=== PATIENT | female | born 1960 | race Caucasian/White ===

== ENCOUNTER 2020-05-22 06:59 | Emergency (ER) | payer BC, SELFPAY ==
[2020-05-22 07:07] VITALS: BP 155/94; PULSE 74; RESP 17; TEMP 36.7; O2SAT 97; BMI 23.1
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
[2020-05-22] MEDS: diazePAM 5 MG TABLET PO (07:20)
== END 2020-05-22 07:28 | disposition home or self-care (01) ==
LOC: HO.ED 07:25
PROVIDERS: Emergency Provider Emergency Medicine; PCP Internal Medicine
DX: M54.5 Low back pain (principal); I10 Essential (primary) hypertension; Z79.899 Other long term (current) drug therapy
CPT/HCPCS: 99283

== ENCOUNTER 2020-08-02 07:56 | Outpatient (REF) | payer BC, SELFPAY ==
--- NOTE | 2020-08-02 | US_ITS ---
EXAMINATION: US THYROID CLINICAL INFORMATION: Multinodular goiter. COMPARISON: Ultrasound soft tissue head/neck thyroid dated 07/14/2019. TECHNIQUE: Linear transducer aceves-scale and color Doppler examination with attention to the region of the thyroid. FINDINGS: SIZE: Measurements of the thyroid lobes and nodules are given in sagittal, anteroposterior and transverse dimensions respectively. Right Thyroid Lobe: 4.7 x 1.3 x 1.2 cm, volume 3.8 mL. Previously 4.9 x 1.2 x 1.5 cm, volume 4.6 mL. Parenchyma: The gland echotexture is homogeneous. Thyroid vascularity is normal. Left Thyroid Lobe: 3.8 x 1.5 x 1.3 cm, volume 3.8 mL. Previously 3.8 x 1.4 x 1.3 cm, volume 4.0 mL. Parenchyma: The gland echotexture is homogeneous. Thyroid vascularity is normal. Isthmus: 0.4 cm in maximum AP dimension. Previously 0.3 cm. RIGHT THYROID LOBE: There is 1 nodule seen. 1. Location: Superior. Size: 0.7 x 0.5 x 0.5 cm. Previous: 1.6 x 0.8 x 1.0 cm. Nodule characteristics: Heterogeneous, smoothly marginated with intranodular flow, likely complex lesion. ISTHMUS: No nodules. LEFT THYROID LOBE: There is 1 nodule seen. 1. Location: Inferior. Size: 0.4 x 0.2 x 0.3 cm. Previous: 0.2 x 0.2 x 0.3 cm. Nodule characteristics: Heterogeneous, smoothly marginated with no intranodular flow, likely complex lesion. NODES: No lymphadenopathy is seen in the tissue surrounding the thyroid gland. US/US thyroid IMPRESSION: Complex cystic lesions upper pole right thyroid lobe and lower pole left thyroid lobe still subcentimeter with no major change in the margins or echogenicity. Recommend continued ultrasound follow-up
== END 2020-08-02 07:57 | disposition home or self-care (01) ==
LOC: HO.US 07:56
PROVIDERS: Visit Provider Internal Medicine Endocrinology, Diabetes & Metabolism
DX: E04.2 Nontoxic multinodular goiter (principal)
CPT/HCPCS: 76536

== ENCOUNTER → 2020-08-18 14:17 | Outpatient (BNVA) | payer BC, SELFPAY | PROVIDERS: PCP Internal Medicine; Visit Provider Internal Medicine Endocrinology, Diabetes & Metabolism ==

== ENCOUNTER 2020-08-21 07:30 | Outpatient (REF) | payer BC, SELFPAY ==
[2020-08-21 11:46] LABS: Free T4 (Free Thyroxine) 0.93 ng/dL (0.71-1.85)
[2020-08-21 11:50] LABS: Thyroid Stimulating Hormone 2.79 uIU/mL (0.32-4.0)
[2020-08-21 11:57] LABS: Alanine Aminotransferase 13 U/L (0-31); Albumin Level 3.8 g/dL (3.5-5.0); Alkaline Phosphatase 52 U/L (39-117); Anion Gap 12 (12-20); Aspartate Amino Transferase 21 U/L (5-31); Bilirubin Total 0.8 mg/dL (0.0-1.0); Blood Urea Nitrogen 22 mg/dL (9-16); Calcium 8.8 mg/dL (8.4-10.2); Carbon Dioxide 27 mmol/L (22-29); Chloride 107 mmol/L (96-108); Cholesterol 147 mg/dL; Estimated Glomerular Filt Rate 58; Glucose Fasting 85 mg/dL (60-99); HDL Cholesterol 72 mg/dL; LDL Cholesterol Calculated 67 mg/dl; Potassium 4.3 mmol/l (3.3-5.1); Sodium 142 mmol/L (135-145); Total Protein 6.2 g/dL (6.5-8.0); Triglycerides 40 mg/dL
== END 2020-08-21 07:31 | disposition home or self-care (01) ==
LOC: HO.HMGCLDS 07:30
PROVIDERS: PCP Internal Medicine; Visit Provider Internal Medicine Endocrinology, Diabetes & Metabolism
DX: E04.2 Nontoxic multinodular goiter (principal); E78.5 Hyperlipidemia, unspecified; R79.89 Other specified abnormal findings of blood chemistry
CPT/HCPCS: 36415; 80053; 80061; 84439; 84443

== ENCOUNTER 2021-01-05 14:09 | Outpatient (REF) | payer BC, SELFPAY ==
--- NOTE | ~2021-01-05 | MM_ITS ---
EXAMINATION: BONE DENSITOMETRY CLINICAL INDICATION: Osteoporosis. COMPARISON: Baseline BD dated 07/16/2016. TECHNIQUE: Using a [employer] DXA System (software version: 13.1) manufactured by [employer], dual-energy x-ray absorptiometry was performed of the lumbar spine and left hip. The images are of good technical quality. Summary results are attached. FINDINGS: AP SPINE L1-L4: Current: BMD 0.961 g/cm2, Z-score -0.6, T-score -1.8, osteopenia, 6.2% decrease from baseline (<5% change is not significant). Baseline: BMD 1.025 g/cm2. LEFT FEMUR, NECK: Current: BMD 0.767 g/cm2, Z-score -0.7, T-score -1.9, osteopenia. Baseline: BMD 0.850 g/cm2. LEFT FEMUR, TOTAL: Current: BMD 0.852 g/cm2, Z-score -0.3, T-score -1.2, osteopenia, 5.2% decrease from baseline (<5% change is not significant). Baseline: BMD 0.899 g/cm2. IDENTIFIED RISK FACTORS: Menopause, history of fracture (adult). HISTORY OF FRACTURE: Ribs, ankle. MEDICATIONS: Vitamin D. MM/XR DEXA axial skeleton IMPRESSION: 1. DIAGNOSIS: Osteopenia based on the lowest T-score value of -1.9 in the femoral neck applying World Health Organization criteria. 2. 10-YEAR FRACTURE RISK PREDICTION, FRAX: Major osteoporotic fracture (clinical spine, forearm, hip or shoulder) 15.5%. Hip fracture 2.0%. 3. Treatment Recommendations: NOF guidelines recommend consideration for treatment in postmenopausal women and men age 50 and older presenting with the following: -A hip or vertebral (clinical or morphometric) fracture. -T-score less than or equal to -2.5 at the femoral neck or spine after appropriate evaluation to exclude secondary causes. -Low bone mass at the hip or spine and a 10-year fracture probability by FRAX of greater than or equal to 3% for hip fracture or greater than or equal to 20% for major osteoporotic fracture based on the [place] adapted WHO algorithm. 4. Other Recommendations: All treatment decisions require clinical judgment and consideration of individual patient factors, including patient preferences, comorbidities, previous drug use, risk factors not captured in the FRAX model (e.g. frailty, falls, vitamin D deficiency, increased bone turnover, interval significant decline in bone density) and possible under or overestimation of fracture risk by FRAX. Additional medical evaluation for secondary cause of low bone mineral density may be appropriate. FUTURE SCAN RECOMMENDATION: People with diagnosed cases of osteoporosis or at high risk for fracture should have regular bone mineral density tests. For patients eligible for Medicare, routine testing is allowed once every 2 years. The testing frequency can be increased to one year for patients who have rapidly progressing disease, those who are receiving or discontinuing medical therapy to restore bone mass, or have additional risk factors.
--- NOTE | ~2021-01-05 | MM_ITS ---
EXAMINATION: MM SCREENING DIGITAL BREAST TOMOSYNTHESIS, BILATERAL CLINICAL INFORMATION: Screening. Asymptomatic. The lifetime risk of breast cancer based on the Tyrer-Cuzick Model is 13%. COMPARISON: Mammography: 04/22/2018, 04/08/2016, 02/02/2015 TECHNIQUE: Digital breast tomosynthesis is performed in both the craniocaudal and mediolateral oblique views along with computer-aided detection (CAD). Synthesized 2D images are generated from the tomosynthesis. FINDINGS: There are scattered areas of fibroglandular density (ACR BI-RADS breast composition Category b). There are no significant masses, abnormal calcifications, or other abnormalities. There is deodorant artifact versus dermal calcifications overlying the axilla. The skin contours are smooth. MM/MM tomosynthesis screening BI IMPRESSION: No mammographic evidence of malignancy. ASSESSMENT: BI-RADS 2: Benign RECOMMENDATION: Routine annual mammography screening. This patient's information was entered into a reminder system with a target due date for their next mammogram.
== END 2021-01-05 14:10 | disposition home or self-care (01) ==
LOC: HO.MAMMO 14:09
PROVIDERS: PCP Internal Medicine; Visit Provider Obstetrics & Gynecology
DX: Z12.31 Encounter for screening mammogram for malignant neoplasm of breast (principal); Z13.820 Encounter for screening for osteoporosis; M85.80 Other specified disorders of bone density and structure, unspecified site; Z78.0 Asymptomatic menopausal state; Z87.81 Personal history of (healed) traumatic fracture; Z79.899 Other long term (current) drug therapy
CPT/HCPCS: 77063; 77067; 77080

== ENCOUNTER 2021-02-14 08:26 | Outpatient (REF) | payer BC, SELFPAY ==
[2021-02-14 11:43] LABS: Alanine Aminotransferase 21 U/L (0-31); Albumin Level 4.1 g/dL (3.5-5.0); Alkaline Phosphatase 53 U/L (39-117); Aspartate Amino Transferase 31 U/L (5-31); Bilirubin Direct 0.4 mg/dL (0.0-0.5); Bilirubin Total 0.9 mg/dL (0.0-1.0); Blood Urea Nitrogen 16 mg/dL (9-16); Estimated Glomerular Filt Rate 58; Total Protein 6.7 g/dL (6.5-8.0)
== END 2021-02-14 08:27 | disposition home or self-care (01) ==
LOC: HO.HMGCLDS 08:26
PROVIDERS: PCP Internal Medicine; Visit Provider Physical Medicine & Rehabilitation
DX: M51.16 Intervertebral disc disorders with radiculopathy, lumbar region (principal)
CPT/HCPCS: 36415; 80076; 82565; 84520

== ENCOUNTER 2021-05-26 09:12 | Outpatient (REF) | payer BC, SELFPAY ==
[2021-05-26 11:17] LABS: Hematocrit 38.3 % (37.0-47.0); Hemoglobin 12.9 g/dl (12.0-16.0); Mean Corpuscular HGB Conc 33.7 g/dl (31.0-35.0); Mean Corpuscular Hemoglobin 31.5 pg (27.0-33.0); Mean Corpuscular Volume 93.4 fL (80.0-98.0); Mean Platelet Volume 12.6 fL (9.4-12.3); Platelet Count 148 X10*3/uL (160-400)
[2021-05-26 11:21] LABS: Estimated Average Glucose 105 mg/dL; Hemoglobin A1c % 5.3 %
[2021-05-26 11:36] LABS: Alanine Aminotransferase 24 U/L (0-31); Albumin Level 3.9 g/dL (3.5-5.0); Alkaline Phosphatase 55 U/L (39-117); Anion Gap 11 (12-20); Aspartate Amino Transferase 39 U/L (5-31); Bilirubin Total 0.8 mg/dL (0.0-1.0); Blood Urea Nitrogen 14 mg/dL (9-16); Calcium 8.7 mg/dL (8.4-10.2); Carbon Dioxide 26 mmol/L (22-29); Chloride 106 mmol/L (96-108); Cholesterol 142 mg/dL; Estimated Glomerular Filt Rate > 60; Glucose Fasting 70 mg/dL (60-99); HDL Cholesterol 66 mg/dL; LDL Cholesterol Calculated 69 mg/dl; Potassium 3.9 mmol/L (3.3-5.1); Sodium 139 mmol/L (135-145); Total Protein 6.4 g/dL (6.5-8.0); Triglycerides 35 mg/dL
[2021-05-26 11:44] LABS: Creatinine Urine 148.93 mg/dL
[2021-05-26 11:45] LABS: TSH reflex Free T4 3.63 uIU/mL (0.32-4.0)
== END 2021-05-26 09:13 | disposition home or self-care (01) ==
LOC: HO.HMGCLDS 09:12
PROVIDERS: PCP Internal Medicine; Visit Provider Physician Assistant
DX: I25.10 Atherosclerotic heart disease of native coronary artery without angina pectoris (principal)
CPT/HCPCS: 36415; 80053; 80061; 82043; 83036; 84443; 85027

== ENCOUNTER → 2021-06-15 09:22 | Outpatient (BNVA) | payer BC, SELFPAY | PROVIDERS: PCP Internal Medicine; Visit Provider Nurse Practitioner ==

== ENCOUNTER 2021-07-02 06:21 | Outpatient (REF) | payer BC, SELFPAY ==
[2021-07-04 07:31] LABS: Immunoglobulin E 43 kU/L (<OR=114)
[2021-07-07 05:26] LABS: IgA 125 mg/dL (47-310); IgG 1118 mg/dL (600-1640); IgM 126 mg/dL (50-300)
== END 2021-07-02 06:22 | disposition home or self-care (01) ==
LOC: HO.HMGCLDS 06:21
PROVIDERS: PCP Internal Medicine; Visit Provider Specialist
DX: D84.9 Immunodeficiency, unspecified (principal)
CPT/HCPCS: 36415; 82784; 82785

== ENCOUNTER 2021-07-23 09:49 | Day surgery (SDC) | payer BC, SELFPAY ==
--- NOTE | 2021-07-19 10:31 | HO.ANESPROP2 ---
Documented by User: Nayla Antoine NP 07/19/21 10:49 HPI - Anesthesia Eval Consult details Narrative: 61yo F for Colonoscopy Cardiac cleared [facility] Active Problems Active Problems: All Active Problems (Updated 06/15/21 @ 09:50 by YARELIS Seymour) Tubular adenoma of colon (Acute) Asthma (Acute) CAD (coronary artery disease) (Acute) Cervical disc disease (Acute) Annual physical exam (Acute) Colon cancer screening (Acute) Low TSH level (Acute) Non-toxic multinodular goiter (Acute) Thyroid nodule (Acute) Dyslipidemia (Acute) Past Medical History Medical History (Updated 07/19/21 @ 10:47 by Nayla Antoine NP) Asthma CAD (coronary artery disease) Disc disorder Dyslipidemia HTN (hypertension) Low TSH level Non-toxic multinodular goiter SVT (supraventricular tachycardia) Thyroid nodule Family History Family History (Updated 05/24/21 @ 15:38 by Emile Espinal PA-C) Father Hypertension CVD (cardiovascular disease) S/P triple vessel bypass Mother Stroke CVD (cardiovascular disease) Hypertension Paternal Aunt Cancer Sister Cancer Brother Hypertension Cancer Surgical History Surgical History (Updated 06/15/21 @ 09:25 by AMILCAR López) Deficient knowledge of temporomandibular joint repair H/O arthroscopy History of carpal tunnel release of both wrists History of cervical spinal surgery History of colonoscopy with polypectomy History of discectomy Hx of neck surgery Social History Social History (Updated 05/24/21 @ 15:39 by Emile Espinal PA-C) Housing: House Alcohol intake: former Patient Tobacco Use Status: Former Tobacco user e-Cigarette/Vaping Use: Never Used Second Hand Smoke Exposure: No Use of substances other than those prescribed or required for medical reasons: No Are you DNR?: No Advance Directives: No Advance Directives Information Provided: Yes service: No Current occupational status: employed 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[place] [employer] Current occupational exposures/hazards: No Cognitive needs: No Hearing needs: No Vision needs: No Meds Allergies Allergy/AdvReac Type Severity Reaction Status Date / Time amoxicillin [Amoxicillin] Allergy Unknown NAUSEA AND Verified 07/03/21 11:51 VOMITTING, nauseous doxycycline [Doxycycline] Allergy Unknown NAUSEA AND Verified 07/03/21 11:51 VOMITTING, upset stomach penicillin G Allergy Unknown Nausea Verified 07/03/21 11:51 tizanidine AdvReac Intermediate vertigo Verified 07/03/21 11:51 grass,trees,dust Allergy Unknown Unknown Uncoded 07/03/21 11:51 Principin Allergy Unknown Vomiting Uncoded 07/03/21 11:51 Home Medications Medication Instructions Recorded Confirmed Last Taken Type albuterol sulfate 90 mcg/actuation INHALATION 08/15/20 07/03/21 07/23/21 History aerosol inhaler fluticasone 500 mcg-salmeterol 50 INHALATION 08/15/20 07/03/21 07/23/21 History mcg/dose blistr powdr for inhalation lidocaine 5 % topical patch 0 patch TOPICAL 08/15/20 07/03/21 Unknown History metoprolol succinate 50 mg 50 mg PO DAILY 08/15/20 07/03/21 07/23/21 History tablet,extended release 24 hr tiotropium bromide 1.25 INHALATION 08/15/20 07/03/21 Unknown History mcg/actuation mist for inhalation valacyclovir 500 mg tablet 500 mg PO DAILY 08/15/20 07/03/21 Unknown History aspirin 81 mg tablet,delayed 81 mg PO DAILY 08/18/20 07/03/21 07/16/21 History release (Adult Low Dose Aspirin) immun glob G 4 gram/20 mL(20 ml SUBCUT 08/18/20 07/03/21 Unknown History %)-prol-IgA 0-50 mcg/mL subcutaneous soln diclofenac sodium 75 mg 1 tab PO BID 07/23/21 07/23/21 07/16/21 History tablet,delayed release Exam Exam Date and Time: July 19, 2021 1031 Pertinent Lab Results Pertinent Lab Results: Laboratory Tests 05/26/21 05/26/21 09:18 09:18 WBC 5.0 Hgb 12.9 Hct 38.3 Plt Count 148 L Sodium 139 Potassium 3.9 Chloride 106 Carbon Dioxide 26 BUN 14 Creatinine 0.87 Narrative Narrative: EKG 06/2021 (at [facility]) SR, Nonspecific ST-T wave abn Assessment and Plan Assessment Anesthesia Assessment: Chart Reviewed Documented by User: Horacio Frank 07/23/21 10:42 [facility] Past Medical History Medical History (Updated 07/19/21 @ 10:47 by Nayla Antoine NP) Asthma CAD (coronary artery disease) Disc disorder Dyslipidemia HTN (hypertension) Low TSH level Non-toxic multinodular goiter SVT (supraventricular tachycardia) Thyroid nodule Family History Family History (Updated 05/24/21 @ 15:38 by Emile Espinal PA-C) Father Hypertension CVD (cardiovascular disease) S/P triple vessel bypass Mother Stroke CVD (cardiovascular disease) Hypertension Paternal Aunt Cancer Sister Cancer Brother Hypertension Cancer Family history of problems with anesthesia: No Surgical History Surgical History (Updated 06/15/21 @ 09:25 by AMILCAR López) Deficient knowledge of temporomandibular joint repair H/O arthroscopy History of carpal tunnel release of both wrists History of cervical spinal surgery History of colonoscopy with polypectomy History of discectomy Hx of neck surgery History of Problems with Anesthesia: No Social History Social History (Updated 05/24/21 @ 15:39 by Emile Espinal PA-C) Housing: House Alcohol intake: former Patient Tobacco Use Status: Former Tobacco user e-Cigarette/Vaping Use: Never Used Second Hand Smoke Exposure: No Use of substances other than those prescribed or required for medical reasons: No Are you DNR?: No Advance Directives: No Advance Directives Information Provided: Yes service: No Current occupational status: employed 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[place] [employer] Current occupational exposures/hazards: No Cognitive needs: No Hearing needs: No Vision needs: No Meds Allergies Allergy/AdvReac Type Severity Reaction Status Date / Time amoxicillin [Amoxicillin] Allergy Unknown NAUSEA AND Verified 07/03/21 11:51 VOMITTING, nauseous doxycycline [Doxycycline] Allergy Unknown NAUSEA AND Verified 07/03/21 11:51 VOMITTING, upset stomach penicillin G Allergy Unknown Nausea Verified 07/03/21 11:51 tizanidine AdvReac Intermediate vertigo Verified 07/03/21 11:51 grass,trees,dust Allergy Unknown Unknown Uncoded 07/03/21 11:51 Principin Allergy Unknown Vomiting Uncoded 07/03/21 11:51 Home Medications Medication Instructions Recorded Confirmed Last Taken Type albuterol sulfate 90 mcg/actuation INHALATION 08/15/20 07/03/21 07/23/21 History aerosol inhaler fluticasone 500 mcg-salmeterol 50 INHALATION 08/15/20 07/03/21 07/23/21 History mcg/dose blistr powdr for inhalation lidocaine 5 % topical patch 0 patch TOPICAL 08/15/20 07/03/21 Unknown History metoprolol succinate 50 mg 50 mg PO DAILY 08/15/20 07/03/21 07/23/21 History tablet,extended release 24 hr tiotropium bromide 1.25 INHALATION 08/15/20 07/03/21 Unknown History mcg/actuation mist for inhalation valacyclovir 500 mg tablet 500 mg PO DAILY 08/15/20 07/03/21 Unknown History aspirin 81 mg tablet,delayed 81 mg PO DAILY 08/18/20 07/03/21 07/16/21 History release (Adult Low Dose Aspirin) immun glob G 4 gram/20 mL(20 ml SUBCUT 08/18/20 07/03/21 Unknown History %)-prol-IgA 0-50 mcg/mL subcutaneous soln diclofenac sodium 75 mg 1 tab PO BID 07/23/21 07/23/21 07/16/21 History tablet,delayed release Exam Airway Mallampati Class: IV TM Dist: >3cm Neck ROM: Limited Loose/Missing/Broken Teeth: Yes (Permanent partials, missing teeth ) Heart: rrr Lungs: bl breath sounds Assessment and Plan Final Anesthetic Review Family History of Problems with Anesthesia: No History of Problems with Anesthesia: No NPO: Yes ASA Class: III Final Preanesthetic Review: Anes Risks/Benef Reviewed Patient Risk: Intermediate Procedure Risk: Intermediate Anesthetic Plan Anesthetic Plan: MAC: Disposition: Standard PACU
[2021-07-23 10:09] VITALS: BP 142/84; PULSE 93; RESP 18; TEMP 36.7; O2SAT 96; BMI 24.5
[2021-07-23] MEDS: Lactated Ringers 1,000 ML 100 ML IVCONT (10:34)
--- NOTE | 2021-07-23 11:17 | MHC.SHP ---
Pre-Procedural Eval Section A Date of Service: 07/23/21 Section B Chief Complaint: benign neoplasm of colon Relevant Family History (Specify if Yes): No Relevant Social History: None Present Medications: see Short Stay Collaborative assessment Medical History: Significant History (Asthma CAD (coronary artery disease) Disc disorder Dyslipidemia HTN (hypertension) Low TSH level Non-toxic multinodular goiter SVT (supraventricular tachycardia) Thyroid nodule) History of Previous Operations: Relevant previous surgery/procedure and date(s) (Deficient knowledge of temporomandibular joint repair H/O arthroscopy History of carpal tunnel release of both wrists History of cervical spinal surgery History of colonoscopy with polypectomy History of discectomy Hx of neck surgery) Allergies: Allergies Allergy/AdvReac Type Severity Reaction Status Date / Time amoxicillin [Amoxicillin] Allergy Unknown NAUSEA AND Verified 07/03/21 11:51 VOMITTING, nauseous doxycycline [Doxycycline] Allergy Unknown NAUSEA AND Verified 07/03/21 11:51 VOMITTING, upset stomach penicillin G Allergy Unknown Nausea Verified 07/03/21 11:51 tizanidine AdvReac Intermediate vertigo Verified 07/03/21 11:51 grass,trees,dust Allergy Unknown Unknown Uncoded 07/03/21 11:51 Principin Allergy Unknown Vomiting Uncoded 07/03/21 11:51 Review of Systems Sugical H&P ROS: Negative: Constitution, Cardiovascular, Respiratory, Neurological, Psychiatric, Hem-Onc, Allergic/Immunologic, Gastrointestinal, Genitourinary, Musculoskeletal, Integumentary, Endocrine and Eyes/Ears/Nose/Throat Exam Surgical H&P Exam: Normal: HEENT, Normal: Heart, Normal: Lungs, Normal: Extremities, Normal: Abdomen, Normal: Skin and Normal: Neurological Plan Diagnosis/Plan: Unchanged I have reviewed the history and physical and performed a pertinent physical examination on my patient. No changes have occurred unless specified.
--- NOTE | 2021-07-23 11:18 | P.BOP_ITS ---
Brief Operative Note Date of Service: 07/23/21 Pre-op diagnosis: colon screening Post-op diagnosis: same Procedure: see op note Surgeon: Radha Connelly MD Anesthesia: MAC Was an [employer] used for this Procedure?: No Estimated blood loss (mL): 0 Condition: stable Disposition: PACU
--- NOTE | 2021-07-23 11:18 | W.PM.OPN ---
Operative Note Operative Note Date of Service: 07/23/21 Narrative: Operative Information Procedure Description: Colonoscopy COLONOSCOPY Instrument: Olympus variable stiffness pediatric scope 190L Colonoscopy Monitoring: Vital signs and clinical assessment, continuous EKG monitoring, Pulse oximetry, Carbon Dioxide monitoring and blood pressure monitoring were done throughout the procedure. Colon withdrawal time was 17 minutes. Procedure: The patient was placed in the left lateral decubitis position and pre-procedure medications were administered. After a digital rectal examination of the ano-rectum, the video colonoscope was inserted into the rectum and advanced through the colon to the cecum/TI. The colonoscope was slowly withdrawn in a retrograde panoramic fashion and the colon mucosa was carefully examined including a retroflexed view of the rectum. Findings and interventions are described below. Procedure Difficulty: easy Findings: Terminal Ileum-normal Cecum:normal Ascending Colon: 3-4 mm sessile polyp removed with forceps Transverse Colon - 10-12 mm semi pedunculated polyp removed with cold snare with x 2 clips applied for hemostasis Descending Colon:normal Sigmoid Colon: 12-13 mm sessile polyp removed with cold snare and x 1 clip applied for hemostasis Rectum: Retroflexion with small internal hemorrhoids, grade I Anorectum - normal Colon preparation: Fontanelle Bowel Preparation Scale Right colon; 3 Transverse colon: 3 Left colon; 3 (0 = Unprepared colon segment with mucosa not seen due to solid stool that cannot be cleared. 1 = Portion of mucosa of the colon segment seen, but other areas of the colon segment not well seen due to staining, residual stool and/or opaque liquid. 2 = Minor amount of residual staining, small fragments of stool and/or opaque liquid, but mucosa of colon segment seen well. 3 = Entire mucosa of colon segment seen well with no residual staining, small fragments of stool or opaque liquid) Impression and Post Procedure Diagnosis: polyps internal hemorrhoids Plan: High fiber diet leaflet Avoid straining at stool, epsom salts and sitz bath, anusol supps or cream Repeat Colonoscopy in 3-5 years due to polyps or earlier if clinically indicated Above findings were reviewed with the patient and relevant handouts were provided if indicated.
[2021-07-23 12:03] VITALS: BP 115/47; PULSE 99; RESP 15; TEMP 36.2; O2SAT 99
[2021-07-23 12:18] VITALS: BP 122/69; PULSE 92; RESP 17; TEMP 36.2; O2SAT 99
== END 2021-07-23 13:08 | disposition home or self-care (01) ==
PROVIDERS: PCP Internal Medicine; Visit Provider Internal Medicine Gastroenterology
PROC: 0DJD8ZZ Inspection of Lower Intestinal Tract, Via Natural or Artificial Opening Endoscopic (ICD-10-PCS; CPT 45378; principal; 2021-07-23 11:10)
DX: Z12.11 Encounter for screening for malignant neoplasm of colon (principal); Z86.010 Personal history of colon polyps; D12.5 Benign neoplasm of sigmoid colon; K51.40 Inflammatory polyps of colon without complications; K63.5 Polyp of colon; K64.0 First degree hemorrhoids; J45.909 Unspecified asthma, uncomplicated; I25.10 Atherosclerotic heart disease of native coronary artery without angina pectoris; I10 Essential (primary) hypertension; E78.5 Hyperlipidemia, unspecified; Z88.0 Allergy status to penicillin; Z88.1 Allergy status to other antibiotic agents; Z88.8 Allergy status to other drugs, medicaments and biological substances; Z87.891 Personal history of nicotine dependence; Z79.899 Other long term (current) drug therapy; Z79.82 Long term (current) use of aspirin; Z79.51 Long term (current) use of inhaled steroids
CPT/HCPCS: 45385; 45380; 88305

== ENCOUNTER → 2021-08-06 16:13 | Outpatient (BNVA) | payer BC, SELFPAY | PROVIDERS: PCP Internal Medicine; Referring Provider Internal Medicine; Visit Provider Nurse Practitioner ==

== ENCOUNTER 2021-11-06 06:41 | Emergency (ER) | payer BC, SELFPAY ==
--- NOTE | 2021-11-06 06:48 | ED_ITS ---
History of Present Illness General Chief Complaint: Epistaxis Stated Complaint: nose bleed Time Seen by Provider: 11/06/21 06:47 Source: patient Mode of arrival: ambulatory Limitations: no limitations History of Present Illness Location: Yes right nares and Yes bilateral nares Onset/current episode: Yes hour(s) (1) Duration: Yes constant Pertinent past history: Yes history of previous nose bleed Context: Yes history of previous nose bleed and Yes nasal allergies Treatment prior to arrival: Yes nose pinching and Yes head leaning forward Related Data Home Medications Medication Instructions Recorded Confirmed albuterol sulfate 90 mcg/actuation INHALATION 08/15/20 07/03/21 aerosol inhaler fluticasone 500 mcg-salmeterol 50 INHALATION 08/15/20 07/03/21 mcg/dose blistr powdr for inhalation lidocaine 5 % topical patch 0 patch TOPICAL 08/15/20 07/03/21 metoprolol succinate 50 mg 50 mg PO DAILY 08/15/20 07/03/21 tablet,extended release 24 hr tiotropium bromide 1.25 INHALATION 08/15/20 07/03/21 mcg/actuation mist for inhalation valacyclovir 500 mg tablet 500 mg PO DAILY 08/15/20 07/03/21 aspirin 81 mg tablet,delayed 81 mg PO DAILY 08/18/20 07/03/21 release (Adult Low Dose Aspirin) immun glob G 4 gram/20 mL(20 ml SUBCUT 08/18/20 07/03/21 %)-prol-IgA 0-50 mcg/mL subcutaneous soln diclofenac sodium 75 mg 1 tab PO BID 07/23/21 07/23/21 tablet,delayed release Previous Rx's Medication Instructions Recorded loratadine 10 mg tablet (Allergy 10 mg PO DAILY PRN 90 Days #90 tab 08/07/20 Relief (loratadine)) peg 3350-electrolytes 236 240 ml PO Q10M 1 Days #4000 ml 06/15/21 gram-22.74 gram-6.74 gram-5.86 gram solution (Golytely) atorvastatin 40 mg tablet 40 mg PO DAILY #90 tab 08/01/21 prednisone 10 mg tablet 10 mg PO DAILY 5 Days #5 tab 09/14/21 clindamycin HCl 300 mg capsule 300 mg PO TID 3 Days #9 cap 11/06/21 hydrocodone 5 mg-acetaminophen 325 1 tab PO Q6H PRN #10 tab 11/06/21 mg tablet ondansetron 4 mg disintegrating 4 mg PO Q8H PRN #20 tab 11/06/21 tablet Allergies Allergy/AdvReac Type Severity Reaction Status Date / Time amoxicillin [Amoxicillin] Allergy Unknown NAUSEA AND Verified 08/06/21 16:23 VOMITTING, nauseous doxycycline [Doxycycline] Allergy Unknown NAUSEA AND Verified 08/06/21 16:23 VOMITTING, upset stomach penicillin G Allergy Unknown Nausea Verified 08/06/21 16:23 tizanidine AdvReac Intermediate vertigo Verified 08/06/21 16:23 grass,trees,dust Allergy Unknown Unknown Uncoded 07/03/21 11:51 Principin Allergy Unknown Vomiting Uncoded 07/03/21 11:51 Review of Systems Review of Systems: Constitutional : No Fever, No Chills ENT/Mouth : No Ear Pain, No Nasal Congestion, positive nose bleed Eyes: No Eye Pain, No Swelling, No Redness Cardiovascular : No Chest Pain, No SOB Respiratory : No Cough, No Sputum Gastrointestinal : No Nausea, No Vomiting, No Diarrhea Genitourinary : No Dysuria, No Hematuria Musculoskeletal : No joint pain, No Myalgias Skin : No Skin Lesions, No rash Neuro : No Weakness, No Numbness, No headache Psych : No Anxiety/Panic, No Depression Heme/Lymph: positive Bleeding,No Lymphadenopathy Endocrine : No Polyuria, No Polydipsia PMFSH Past Medical History Attestation statement: The following information was validated with the patient. Medical History Asthma CAD (coronary artery disease) Disc disorder Dyslipidemia HTN (hypertension) Low TSH level Non-toxic multinodular goiter SVT (supraventricular tachycardia) Thyroid nodule Surgical History Deficient knowledge of temporomandibular joint repair H/O arthroscopy History of carpal tunnel release of both wrists History of cervical spinal surgery History of colonoscopy with polypectomy History of discectomy Hx of neck surgery Family History Family History (Updated 05/24/21 @ 15:38 by Emile Espinal PA-C) Father Hypertension CVD (cardiovascular disease) S/P triple vessel bypass Mother Stroke CVD (cardiovascular disease) Hypertension Paternal Aunt Cancer Sister Cancer Brother Hypertension Cancer Social History Social History Housing: House Alcohol intake: never Patient Tobacco Use Status: Never used Tobacco e-Cigarette/Vaping Use: Never Used Second Hand Smoke Exposure: No Use of substances other than those prescribed or required for medical reasons: No Advance Directives: No Advance Directives Information Provided: No service: No Current occupational status: employed 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 Oriented X3. Mild acute distress. Eyes: Pupils equal, round and reactive to light. ENT: Pharynx - bleeding slight posterior pharynx, R nares brisk bleeding brb, L nares slight bleeding noted Neck: Normal inspection. Neck supple. CVS: Normal heart rate and rhythm. Pulses normal. Respiratory: No respiratory distress. Breath sounds normal. Abdomen: Soft and nontender. Skin: Skin warm and dry. Normal skin color. Normal skin turgor. Extremities: No lower extremity edema. No calf ttp Neuro: Oriented X 3. No motor deficit. No sensory deficit. Course Course Course Narrative: will obtain CBC INR after packing - IV morphine for pain, start on clindamycin has PCN and doxy allergies no further bleeding doing well aware of precautions to return has had nasal packing before obs x 2 hours no further bleeding MDM - Epistaxis MDM Narrative Medical decision making narrative: 61 yo female with hx of asthma, CAD, HLD here with c/o epistaxis she is not on AC therapy but is on ASA at this time she has been packed before attributes this to nasal dryness. At this time will try local measurs but I suspect she will need packing given presentation and her history. Lab Data Result diagrams: 11/06/21 07:16 Labs: Lab Results 11/06/21 11/06/21 Range/Units 07:16 07:16 WBC 5.7 (4.8-10.8) X10*3/uL RBC 4.28 (4.20-5.50) X10*6/uL Hgb 12.9 (12.0-16.0) g/dl Hct 39.0 (37.0-47.0) % MCV 91.1 (80.0-98.0) fL MCH 30.1 (27.0-33.0) pg MCHC 33.1 (31.0-35.0) g/dl RDW 12.7 (11.0-16.0) % Plt Count 172 (160-400) X10*3/uL MPV 12.0 (9.4-12.3) fL Absolute Nucleated RBC 0.000 (0.0-0.012) X10*3/uL Nucleated RBC % (auto) 0.0 (0.0-0.2) /100WBC PT 11.3 (9.9-13.0) SEC INR 1.0 (0.9-1.1) Procedures Epistaxis Control Time Out Performed: Yes Nostril: Yes right Nose prepped with: Yes oxymetazoline and Yes other (tranexamic acid) Direct inspection: Yes unable to visualize Direct inspection method: Yes nasal speculum Clots removed by: Yes suction Epistaxis treatment: Yes TXA soaked gauze and Yes nasal tampon Results of treatment: Yes bleeding controlled Complications: Yes none Critical Care Time Critical Care Time Critical Care Time: Yes Total Critical Care Time: 35 Attestation: repeat bedside assessments, direct control of acute epistaxis bleeding. IV morp luiza for pain I attest to this time spent taking care of the patient Discharge Plan Discharge Clinical Impression: Epistaxis Patient Disposition: Home, Self-Care Instructions: Nosebleed (ED) Additional Instructions: return to ED for any worsening symptoms or concerns nasal packing to remain in place x 2 days if bleeding occurs pinch nose and seek medical care lean forward if you cannot get into your ENT please come here to have packing removed. Prescriptions: New hydrocodone-acetaminophen 5-325 mg tablet 1 tab PO Q6H PRN (Reason: pain) Qty: 10 0RF ondansetron 4 mg tablet,disintegrating 4 mg PO Q8H PRN (Reason: nausea and vomiting) Qty: 20 0RF clindamycin HCl 300 mg capsule 300 mg PO TID 3 Days Qty: 9 0RF No Action loratadine [Allergy Relief (loratadine)] 10 mg tablet 10 mg PO DAILY PRN (Reason: allergy symptoms) 90 Days Qty: 90 1RF atorvastatin 40 mg tablet 40 mg PO DAILY Qty: 90 2RF prednisone 10 mg tablet 10 mg PO DAILY 5 Days Qty: 5 1RF diclofenac sodium 75 mg tablet,delayed release (DR/EC) 1 tab PO BID 0RF lidocaine 5 % adhesive patch,medicated 0 patch topical 0RF albuterol sulfate 90 mcg/actuation HFA aerosol inhaler inhalation 0RF fluticasone propion-salmeterol 500-50 mcg/dose blister with device inhalation 0RF metoprolol succinate 50 mg tablet extended release 24 hr 50 mg PO DAILY 0RF valacyclovir 500 mg tablet 500 mg PO DAILY 0RF Spiriva Respimat 1.25 mcg/actuation mist inhalation 0RF immun glob G(IgG)-pro-IgA 0-50 4 gram/20 mL (20 %) solution subcut 0RF aspirin [Adult Low Dose Aspirin] 81 mg tablet,delayed release (DR/EC) 81 mg PO DAILY 0RF peg 3350-electrolytes [Golytely] 236-22.74-6.74 -5.86 gram recon soln 240 ml PO Q10M 1 Days Qty: 4000 0RF Rx Instructions: until fecal effluent is clear; do not exceed a total volume of 2,000 mL Stand Alone Forms: Work/School Release
[2021-11-06 07:16] VITALS: BP 149/84; PULSE 93; RESP 16; O2SAT 98; BMI 24.7
[2021-11-06] MEDS: ondansetron HCL 4 MG/2 ML VIAL IVPUSH (07:22)
[2021-11-06] MEDS: Morphine Sulfate 4 MG/ML CARTRIDGE IVPUSH (07:22)
[2021-11-06] MEDS: Clindamycin Phosphate/D5W 600 MG/50 ML PIGGYBACK 100 MG IV (07:23)
[2021-11-06 07:28] LABS: Hemoglobin 12.9 g/dl (12.0-16.0); Mean Corpuscular HGB Conc 33.1 g/dl (31.0-35.0); Mean Corpuscular Hemoglobin 30.1 pg (27.0-33.0); Mean Corpuscular Volume 91.1 fL (80.0-98.0); Platelet Count 172 X10*3/uL (160-400); Red Blood Count 4.28 X10*6/uL (4.20-5.50); Red Cell Distribution Width 12.7 % (11.0-16.0); White Blood Count 5.7 X10*3/uL (4.8-10.8)
[2021-11-06 07:36] LABS: Prothrombin Time 11.3 SEC (9.9-13.0)
[2021-11-06 07:42] VITALS: BP 137/90; PULSE 80; RESP 18; TEMP 36.7; O2SAT 98
[2021-11-06] MEDS: Oxymetazoline HCl 0.05 % Nasal 15 ML SPRAY 2 SPRAY NOSTRIL-B (07:45)
[2021-11-06] MEDS: Tranexamic Acid 1,000 MG/10 ML VIAL 500 MG INTRANASAL (07:45)
[2021-11-06] MEDS: Silver Nitrate Applicator STICK..EA. 1 APPL TOPICAL (07:46)
[2021-11-06 07:48] VITALS: BP 126/85; PULSE 81
== END 2021-11-06 09:04 | disposition home or self-care (01) ==
PROVIDERS: Emergency Provider Emergency Medicine; PCP Internal Medicine
DX: R04.0 Epistaxis (principal); I10 Essential (primary) hypertension; E78.5 Hyperlipidemia, unspecified; Z79.02 Long term (current) use of antithrombotics/antiplatelets
CPT/HCPCS: 30905; 36415; 85027; 85610; 96365; 96375; 99284; 99291; J2270; J2405

== ENCOUNTER 2021-11-06 13:34 | Emergency (ER) | payer BC, SELFPAY ==
[2021-11-06 13:42] VITALS: BP 192/110; PULSE 80; O2SAT 98
[2021-11-06 13:54] VITALS: BP 184/64; PULSE 85; RESP 18; TEMP 36.4; O2SAT 98; BMI 24.7
--- NOTE | 2021-11-06 13:57 | ED.GENADULT ---
HPI - General Adult General Chief complaint: Dyspnea Stated complaint: DIFFICULTY BREATHING,EPISTAXIS,DIZZY Time Seen by Provider: 11/06/21 13:39 Source: patient, EMS and old records reviewed Mode of arrival: EMS Limitations: no limitations History of Present Illness HPI narrative: 61-year-old female came in for evaluation of dizziness and difficulty breathing. Patient was seen earlier today for epistaxis, patient was discharged home with nasal packing when patient went home laid back felt dizzy and lightheadedness, and was breathing from her mouth due to the packing in her nose. Not taking anticoagulation but using aspirin, patient take metoprolol for her blood pressure did not take it today. Related Data Home Medications Medication Instructions Recorded Confirmed albuterol sulfate 90 mcg/actuation INHALATION 08/15/20 07/03/21 aerosol inhaler fluticasone 500 mcg-salmeterol 50 INHALATION 08/15/20 07/03/21 mcg/dose blistr powdr for inhalation lidocaine 5 % topical patch 0 patch TOPICAL 08/15/20 07/03/21 metoprolol succinate 50 mg 50 mg PO DAILY 08/15/20 07/03/21 tablet,extended release 24 hr tiotropium bromide 1.25 INHALATION 08/15/20 07/03/21 mcg/actuation mist for inhalation valacyclovir 500 mg tablet 500 mg PO DAILY 08/15/20 07/03/21 aspirin 81 mg tablet,delayed 81 mg PO DAILY 08/18/20 07/03/21 release (Adult Low Dose Aspirin) immun glob G 4 gram/20 mL(20 ml SUBCUT 08/18/20 07/03/21 %)-prol-IgA 0-50 mcg/mL subcutaneous soln diclofenac sodium 75 mg 1 tab PO BID 07/23/21 07/23/21 tablet,delayed release Previous Rx's Medication Instructions Recorded loratadine 10 mg tablet (Allergy 10 mg PO DAILY PRN 90 Days #90 tab 08/07/20 Relief (loratadine)) peg 3350-electrolytes 236 240 ml PO Q10M 1 Days #4000 ml 06/15/21 gram-22.74 gram-6.74 gram-5.86 gram solution (Golytely) atorvastatin 40 mg tablet 40 mg PO DAILY #90 tab 08/01/21 prednisone 10 mg tablet 10 mg PO DAILY 5 Days #5 tab 09/14/21 clindamycin HCl 300 mg capsule 300 mg PO TID 3 Days #9 cap 11/06/21 hydrocodone 5 mg-acetaminophen 325 1 tab PO Q6H PRN #10 tab 11/06/21 mg tablet ondansetron 4 mg disintegrating 4 mg PO Q8H PRN #20 tab 11/06/21 tablet Allergies Allergy/AdvReac Type Severity Reaction Status Date / Time amoxicillin [Amoxicillin] Allergy Unknown NAUSEA AND Verified 11/06/21 13:54 VOMITTING, nauseous doxycycline [Doxycycline] Allergy Unknown NAUSEA AND Verified 11/06/21 13:54 VOMITTING, upset stomach penicillin G Allergy Unknown Nausea Verified 11/06/21 13:54 tizanidine AdvReac Intermediate vertigo Verified 11/06/21 13:54 grass,trees,dust Allergy Unknown Unknown Uncoded 07/03/21 11:51 Principin Allergy Unknown Vomiting Uncoded 07/03/21 11:51 Review of Systems Review of Systems: all other systems are reviewed and are negative Constitutional: Reports as per HPI and Reports no additional constitutional complaints Eyes: Reports as per HPI and Reports no additional eye complaints Reports system reviewed and no additional complaints, except as documented Cardiovascular: Reports as per HPI and Reports no additional cardiovascular complaints Respiratory: Reports as per HPI and Reports no additional respiratory complaints Gastrointestinal: Reports as per HPI and Reports no additional gastrointestinal complaints Genitourinary: Reports no additional female genitourinary complaints Musculoskeletal: Reports no additional musculoskeletal complaints Skin/Breast: Reports system reviewed and no additional complaints, except as docu Psychiatric: Reports no additional psychiatric complaints Endocrine: Reports no additional endocrine complaints Hematologic/Lymphatic: Reports no additional hematologic/lymphatic complaints Allergic/Immunologic: Reports no additional allergic/immunologic complaints Reports system reviewed and no additional complaints, except as documented and Reports Abnormal speech present [facility] Past Medical History Medical History Asthma CAD (coronary artery disease) Disc disorder Dyslipidemia HTN (hypertension) Low TSH level Non-toxic multinodular goiter SVT (supraventricular tachycardia) Thyroid nodule Surgical History Deficient knowledge of temporomandibular joint repair H/O arthroscopy History of carpal tunnel release of both wrists History of cervical spinal surgery History of colonoscopy with polypectomy History of discectomy Hx of neck surgery Family History Family History Father Hypertension CVD (cardiovascular disease) S/P triple vessel bypass Mother Stroke CVD (cardiovascular disease) Hypertension Paternal Aunt Cancer Sister Cancer Brother Hypertension Cancer Social History Social History Housing: House Alcohol intake: never Patient Tobacco Use Status: Never used Tobacco e-Cigarette/Vaping Use: Never Used Second Hand Smoke Exposure: No Advance Directives: No Advance Directives Information Provided: No service: No Current occupational status: employed 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 Blood pressure normal. Heart rate normal. Respiration rate normal. Temperature normal. Oxygen saturation normal. Appearance: Alert. Oriented X3. No acute distress. Head: Normal external exam. Normocephalic. Atraumatic. No Quinones signs noted. No raccoon eyes noted Eyes: PERRLA. EOMI. Conjunctiva and sclera normal. Eyelids normal. ENT: TM's Normal. Pharynx normal. Uvula midline. Moist mucous membranes. No trismus noted. No drooling noted. No muffled voice noted. no active bleeding nasal packing is in place Neck: Normal inspection. Neck supple. FROM. No adenopathy. Thyroid Normal. No meningeal signs. No neck mass noted. CVS: Normal heart rate and rhythm. Heart sound normal. No murmurs noted. Pulses normal throughout. Respiratory: No respiratory distress. Painless inspiration. Breath sounds normal. No wheezes/rales/rhonchi noted. Chest nontender. No accessory muscle usage noted or decreased air movement noted. Abdomen: Soft and nontender. Bowel sounds normal in all 4 quadrants. No distention noted. No organomegaly noted. No visible injury noted. Back: No CVA tenderness. Full range of motion noted. Skin: Skin warm and dry. Normal skin color. Normal skin turgor. No rashes/lesions/lacerations noted. Extremities: No lower extremity edema. Extremities exhibit normal range of motion. Extremities nontender. Neuro: Oriented X 3. Cranial nerve exam: II-XII are grossly intact No motor deficit. No sensory deficit. Reflexes normal. Course Course Course Narrative: assessment and plan. 61-year-old female had nasal packing for epistaxis and return to the emergency department for difficulty breathing and feeling dizzy. Patient's symptoms is likely due to breathing from mouth for a long time, nasal packing was discontinued in the emergency department and patient was monitored in the ED for 2 hours has no further nasal bleeding. patient has unremarkable labs, and unchanged EKG from old. Medical Decision Making Lab Data Lab results reviewed: Yes I reviewed the patient's lab results. Result diagrams: 11/06/21 14:17 11/06/21 14:17 Labs: Lab Results 11/06/21 11/06/21 11/06/21 Range/Units 14:17 14:17 14:17 WBC 6.4 (4.8-10.8) X10*3/uL RBC 4.26 (4.20-5.50) X10*6/uL Hgb 12.9 (12.0-16.0) g/dl Hct 39.4 (37.0-47.0) % MCV 92.5 (80.0-98.0) fL MCH 30.3 (27.0-33.0) pg MCHC 32.7 (31.0-35.0) g/dl RDW 12.8 (11.0-16.0) % Plt Count 166 (160-400) X10*3/uL MPV 11.8 (9.4-12.3) fL Immature Gran % (Auto) 0.3 (0.0-0.4) % Neut % (Auto) 48.4 (45-73) % Lymph % (Auto) 41.8 H (20-40) % Wilbarger % (Auto) 5.9 (2-11) % Eos % (Auto) 2.8 (0-4) % Baso % (Auto) 0.8 (0-2) % Lymph # (Auto) 2.7 (1.2-4.9) X10*3/uL [place]barger # (Auto) 0.4 (0.1-1.2) X10*3/uL Eos # (Auto) 0.2 (0.0-0.4) X10*3/uL Baso # (Auto) 0.1 (0.0-0.2) X10*3/uL Abs Immat Gran (auto) 0.02 (0.00-0.03) X10*3/uL Absolute Neuts (auto) 3.1 (2.0-8.3) x10*3/uL Absolute Nucleated RBC 0.000 (0.0-0.012) X10*3/uL Nucleated RBC % (auto) 0.0 (0.0-0.2) /100WBC Sodium 139 (135-145) mmol/L Potassium 4.3 (3.3-5.1) mmol/L Chloride 105 (96-108) mmol/L Carbon Dioxide 28 (22-29) mmol/L Anion Gap 10 L (12-20) BUN 23 H (9-16) mg/dL Creatinine 0.87 (0.5-1.4) mg/dL Estim Creat Clear Calc 62.5 Estimated GFR > 60 Random Glucose 90 (60-115) mg/dL Calcium 9.3 D (8.4-10.2) mg/dL Troponin I High Sens < 3.5 (<3.5-17.0) ng/L ECG Data Attestation: I personally reviewed and interpreted this ECG as follows: Interpretation: Normal sinus rhythm at 87 beats per minutes, normal intervals, diffuse T-wave inversion in the lateral leads, unchanged from previous EKG. Discharge Plan Discharge Clinical Impression: Epistaxis, Encounter for removal of nasal packing, Dizziness Patient Disposition: Home, Self-Care Instructions: Dizziness (ED) Additional Instructions: postop taken clindamycin ( antibiotic was prescribed to you this morning). Prescriptions: No Action loratadine [Allergy Relief (loratadine)] 10 mg tablet 10 mg PO DAILY PRN (Reason: allergy symptoms) 90 Days Qty: 90 1RF atorvastatin 40 mg tablet 40 mg PO DAILY Qty: 90 2RF prednisone 10 mg tablet 10 mg PO DAILY 5 Days Qty: 5 1RF diclofenac sodium 75 mg tablet,delayed release (DR/EC) 1 tab PO BID 0RF hydrocodone-acetaminophen 5-325 mg tablet 1 tab PO Q6H PRN (Reason: pain) Qty: 10 0RF ondansetron 4 mg tablet,disintegrating 4 mg PO Q8H PRN (Reason: nausea and vomiting) Qty: 20 0RF clindamycin HCl 300 mg capsule 300 mg PO TID 3 Days Qty: 9 0RF lidocaine 5 % adhesive patch,medicated 0 patch topical 0RF albuterol sulfate 90 mcg/actuation HFA aerosol inhaler inhalation 0RF fluticasone propion-salmeterol 500-50 mcg/dose blister with device inhalation 0RF metoprolol succinate 50 mg tablet extended release 24 hr 50 mg PO DAILY 0RF valacyclovir 500 mg tablet 500 mg PO DAILY 0RF Spiriva Respimat 1.25 mcg/actuation mist inhalation 0RF immun glob G(IgG)-pro-IgA 0-50 4 gram/20 mL (20 %) solution subcut 0RF aspirin [Adult Low Dose Aspirin] 81 mg tablet,delayed release (DR/EC) 81 mg PO DAILY 0RF peg 3350-electrolytes [Golytely] 236-22.74-6.74 -5.86 gram recon soln 240 ml PO Q10M 1 Days Qty: 4000 0RF Rx Instructions: until fecal effluent is clear; do not exceed a total volume of 2,000 mL Referrals: Karen Gonzalez MD [Primary Care Provider] -
--- NOTE | 2021-11-06 14:04 | ECG_ITS ---
Test Reason : DYSPNEA Blood Pressure : / mmHG Vent. Rate : 087 BPM Atrial Rate : 087 BPM P-R Int : 154 ms QRS Dur : 084 ms QT Int : 382 ms P-R-T Axes : 027 005 007 degrees QTc Int : 459 ms Normal sinus rhythm ST & T wave abnormality, consider anterior ischemia Abnormal ECG When compared with ECG of 24-SEP-2019 10:51, No significant change was found Referred By: Sesar Escobar Electronically Signed By:Brian Concepcion
[2021-11-06] MEDS: 0.9 % Sodium Chloride 1,000 ML 999 ML IV (14:15)
[2021-11-06 14:19] VITALS: BP 169/88; PULSE 78
[2021-11-06 14:20] VITALS: BP 144/85; PULSE 75
[2021-11-06 14:24] VITALS: BP 149/87; PULSE 82
[2021-11-06 14:24] LABS: MANUAL DIFF FLAG NO
[2021-11-06 14:28] LABS: Basophils Absolute Auto 0.1 X10*3/uL (0.0-0.2); Basophils Percent Auto 0.8 % (0-2); Eosinophils Absolute Auto 0.2 X10*3/uL (0.0-0.4); Eosinophils Percent Auto 2.8 % (0-4); Hematocrit 39.4 % (37.0-47.0); Hemoglobin 12.9 g/dl (12.0-16.0); Imm Gran Abs Auto 0.02 X10*3/uL (0.00-0.03); Imm Gran Pct Auto 0.3 % (0.0-0.4); Lymphocytes Absolute Auto 2.7 X10*3/uL (1.2-4.9); Lymphocytes Percent Auto 41.8 % (20-40); Mean Corpuscular HGB Conc 32.7 g/dl (31.0-35.0); Mean Corpuscular Hemoglobin 30.3 pg (27.0-33.0); Mean Corpuscular Volume 92.5 fL (80.0-98.0); Mean Platelet Volume 11.8 fL (9.4-12.3); Monocytes Absolute Auto 0.4 X10*3/uL (0.1-1.2); Monocytes Percent Auto 5.9 % (2-11); Neutrophils Absolute Auto 3.1 x10*3/uL (2.0-8.3); Neutrophils Percent Auto 48.4 % (45-73); Platelet Count 166 X10*3/uL (160-400); Red Blood Count 4.26 X10*6/uL (4.20-5.50); Red Cell Distribution Width 12.8 % (11.0-16.0); White Blood Count 6.4 X10*3/uL (4.8-10.8)
[2021-11-06 14:29] VITALS: BP 150/54; PULSE 83; RESP 18; TEMP 36.4; O2SAT 95
[2021-11-06 14:42] LABS: Anion Gap 10 (12-20); Blood Urea Nitrogen 23 mg/dL (9-16); Calcium 9.3 mg/dL (8.4-10.2); Carbon Dioxide 28 mmol/L (22-29); Chloride 105 mmol/L (96-108); Creatinine Clr Calc Pharmacy 62.5; Estimated Glomerular Filt Rate > 60; Glucose Random 90 mg/dL (60-115); Potassium 4.3 mmol/L (3.3-5.1); Sodium 139 mmol/L (135-145)
[2021-11-06 14:49] LABS: Troponin-I High Sensitivity < 3.5 ng/L (<3.5-17.0)
== END 2021-11-06 16:34 | disposition home or self-care (01) ==
PROVIDERS: Emergency Provider Emergency Medicine; PCP Internal Medicine
DX: R42 Dizziness and giddiness (principal); R04.0 Epistaxis; Z48.01 Encounter for change or removal of surgical wound dressing; Z79.82 Long term (current) use of aspirin
CPT/HCPCS: 36415; 80048; 84484; 85025; 93005; 96360; 99284

== ENCOUNTER 2021-12-05 15:35 | Outpatient (REF) | payer BC, SELFPAY ==
--- NOTE | ~2021-12-05 | US_ITS ---
EXAMINATION: US THYROID CLINICAL INFORMATION: Nontoxic single thyroid nodule. COMPARISON: Ultrasound soft tissue head/neck thyroid dated 08/02/2020 and 07/14/2019. TECHNIQUE: Linear transducer grayscale and color Doppler examination with attention to the region of the thyroid. FINDINGS: SIZE: Measurements of the thyroid lobes and nodules are given in sagittal, anteroposterior and transverse dimensions respectively. Right Thyroid Lobe: 3.73 x 1.60 x 1.18 cm, volume 3.67 mL. Previously 4.7 x 1.3 x 1.2 cm, volume 3.79 mL. Parenchyma: The gland echotexture is homogeneous. Thyroid vascularity is normal. Left Thyroid Lobe: 4.10 x 1.92 x 1.18 cm, volume 4.88 mL. Previously 3.8 x 1.5 x 1.3 cm, volume 3.83 mL. Parenchyma: The gland echotexture is homogeneous. Thyroid vascularity is normal. Isthmus: 0.39 cm in maximum AP dimension. Previously 0.43 cm. No focal thyroid nodule is seen. NODES: No lymphadenopathy is seen in the tissue surrounding the thyroid gland. US/US thyroid IMPRESSION: Unremarkable thyroid ultrasound. Previously visualized thyroid nodules are not seen at this time. ACR TI-RADS RECOMMENDATION REFERENCE: Ultrasound-guided fine-needle aspiration, followup ultrasound, no further follow up. * TR1 (0 point) and TR 2 (2 points): No FNA or follow up * TR3 (3 points): FNA if more than or equal to 2.5 cm in maximum dimension, followup ultrasound in 1, 3 and 5 years if 1.5 to 2.4 cm in maximum dimension. * TR4 (4-6 points): FNA if more than or equal to 1.5 cm in maximum dimension, followup ultrasound in 1, 2, 3 and 5 years if 1 to 1.4 cm in maximum dimension. * TR5 (more than or equal to 7 points): FNA if more than or equal to 1 cm in maximum dimension, followup ultrasound every year for 5 years if 0.5 to 0.9 cm in maximum dimension. * TR3, TR4 or TR5 nodules that are below the size threshold for follow up receive no follow up.
== END 2021-12-05 15:36 | disposition home or self-care (01) ==
LOC: HO.HMGCX 15:35
PROVIDERS: Visit Provider Internal Medicine
DX: E04.1 Nontoxic single thyroid nodule (principal)
CPT/HCPCS: 76536

== ENCOUNTER 2021-12-08 07:59 | Outpatient (REF) | payer BC, SELFPAY ==
[2021-12-08 11:28] LABS: Alanine Aminotransferase 13 U/L (0-31); Albumin Level 3.9 g/dL (3.5-5.0); Alkaline Phosphatase 57 U/L (39-117); Anion Gap 13 (12-20); Aspartate Amino Transferase 25 U/L (5-31); Bilirubin Total 0.5 mg/dL (0.0-1.0); Blood Urea Nitrogen 30 mg/dL (9-16); Carbon Dioxide 26 mmol/L (22-29); Chloride 106 mmol/L (96-108); Cholesterol 146 mg/dL; Estimated Glomerular Filt Rate > 60; Glucose Fasting 84 mg/dL (60-99); HDL Cholesterol 67 mg/dL; LDL Cholesterol Calculated 72 mg/dl; Potassium 4.1 mmol/L (3.3-5.1); Sodium 141 mmol/L (135-145); Total Protein 6.5 g/dL (6.5-8.0); Triglycerides 38 mg/dL
[2021-12-08 11:51] LABS: Thyroid Stimulating Hormone 0.65 uIU/mL (0.32-4.0)
== END 2021-12-08 08:00 | disposition home or self-care (01) ==
LOC: HO.HMGCLDS 07:59
PROVIDERS: Visit Provider Internal Medicine
DX: E04.1 Nontoxic single thyroid nodule (principal); E78.5 Hyperlipidemia, unspecified
CPT/HCPCS: 36415; 80053; 80061; 84443

== ENCOUNTER 2021-12-26 14:59 | Outpatient (REF) | payer BC, SELFPAY ==
[2021-12-26 15:55] LABS: MANUAL DIFF FLAG NO
[2021-12-26 16:52] LABS: Basophils Percent Auto 0.7 % (0-2); Eosinophils Absolute Auto 0.3 X10*3/uL (0.0-0.4); Eosinophils Percent Auto 4.6 % (0-4); Hematocrit 37.8 % (37.0-47.0); Hemoglobin 12.2 g/dl (12.0-16.0); Imm Gran Abs Auto 0.01 X10*3/uL (0.00-0.03); Imm Gran Pct Auto 0.2 % (0.0-0.4); Lymphocytes Absolute Auto 1.5 X10*3/uL (1.2-4.9); Lymphocytes Percent Auto 27.4 % (20-40); Mean Corpuscular HGB Conc 32.3 g/dl (31.0-35.0); Mean Corpuscular Hemoglobin 30.4 pg (27.0-33.0); Mean Corpuscular Volume 94.3 fL (80.0-98.0); Mean Platelet Volume 12.4 fL (9.4-12.3); Monocytes Absolute Auto 0.4 X10*3/uL (0.1-1.2); Monocytes Percent Auto 7.2 % (2-11); Neutrophils Absolute Auto 3.2 x10*3/uL (2.0-8.3); Neutrophils Percent Auto 59.9 % (45-73); Platelet Count 166 X10*3/uL (160-400); Red Blood Count 4.01 X10*6/uL (4.20-5.50); White Blood Count 5.4 X10*3/uL (4.8-10.8)
== END 2021-12-26 15:00 | disposition home or self-care (01) ==
LOC: HO.LAB 14:59
PROVIDERS: PCP Internal Medicine; Visit Provider Internal Medicine Pulmonary Disease
DX: J45.909 Unspecified asthma, uncomplicated (principal); Z91.09 Other allergy status, other than to drugs and biological substances
CPT/HCPCS: 36415; 82785; 85025; 86003

== ENCOUNTER 2021-12-27 15:34 | Outpatient (REF) | payer BC, SELFPAY ==
--- NOTE | 2021-12-27 17:32 | PFT_ITS ---
Forced vital capacity 93%. FEV1 102%. FEV1/FVC ratio 85. FEF 25-75, 129%, and MVV 89%. All these values are normal. There was no response to bronchodilator therapy. Lung volumes, total lung capacity 89%, residual volume 77%, and diffusion capacity 72%. CONCLUSION: Normal pulmonary function tests and there is no evidence of obstructive or restrictive pulmonary disorder. MD SAPPHIRE Baker/HASMUKH / [id number]
== END 2021-12-27 15:35 | disposition home or self-care (01) ==
LOC: HO.RESP 15:34
PROVIDERS: PCP Internal Medicine; Visit Provider Internal Medicine Pulmonary Disease
DX: J45.909 Unspecified asthma, uncomplicated (principal)
CPT/HCPCS: 94060; 94727; 94729

== ENCOUNTER 2022-03-18 14:03 | Outpatient (REF) | payer BC, SELFPAY | END 2022-03-18 14:04 | disposition home or self-care (01) | LOC: HO.MDS 14:03 | PROVIDERS: Visit Provider Internal Medicine Pulmonary Disease | DX: J45.50 Severe persistent asthma, uncomplicated (principal) | CPT/HCPCS: 96372; J0517 ==

== ENCOUNTER 2022-04-15 15:43 | Outpatient (REF) | payer BC, SELFPAY | END 2022-04-15 15:44 | disposition home or self-care (01) | LOC: HO.MDS 15:43 | PROVIDERS: Visit Provider Internal Medicine Pulmonary Disease | DX: J45.50 Severe persistent asthma, uncomplicated (principal) | CPT/HCPCS: 96372; J0517 ==

== ENCOUNTER 2022-05-13 14:32 | Outpatient (REF) | payer BC, SELFPAY | END 2022-05-13 14:33 | disposition home or self-care (01) | LOC: HO.MDS 14:32 | PROVIDERS: Visit Provider Internal Medicine Pulmonary Disease | DX: J45.50 Severe persistent asthma, uncomplicated (principal) | CPT/HCPCS: 96372; J0517 ==

== ENCOUNTER 2022-05-24 06:02 | Outpatient (REF) | payer BC, SELFPAY ==
[2022-05-24 11:25] LABS: MANUAL DIFF FLAG NO
[2022-05-24 11:35] LABS: Basophils Percent Auto 0.2 % (0-2); Hematocrit 40.6 % (37.0-47.0); Hemoglobin 13.1 g/dl (12.0-16.0); Imm Gran Abs Auto 0.01 X10*3/uL (0.00-0.03); Imm Gran Pct Auto 0.2 % (0.0-0.4); Lymphocytes Absolute Auto 1.7 X10*3/uL (1.2-4.9); Lymphocytes Percent Auto 29.3 % (20-40); Mean Corpuscular HGB Conc 32.3 g/dl (31.0-35.0); Mean Corpuscular Hemoglobin 29.4 pg (27.0-33.0); Mean Platelet Volume 12.1 fL (9.4-12.3); Monocytes Absolute Auto 0.4 X10*3/uL (0.1-1.2); Monocytes Percent Auto 6.8 % (2-11); Neutrophils Absolute Auto 3.7 x10*3/uL (2.0-8.3); Neutrophils Percent Auto 63.5 % (45-73); Platelet Count 181 X10*3/uL (160-400); Red Blood Count 4.46 X10*6/uL (4.20-5.50); Red Cell Distribution Width 13.3 % (11.0-16.0); White Blood Count 5.8 X10*3/uL (4.8-10.8)
[2022-05-24 11:53] LABS: Alanine Aminotransferase 13 U/L (0-31); Albumin Level 4.3 g/dL (3.5-5.0); Alkaline Phosphatase 75 U/L (39-117); Anion Gap 16 (12-20); Aspartate Amino Transferase 25 U/L (5-31); Bilirubin Total 0.8 mg/dL (0.0-1.0); Blood Urea Nitrogen 21 mg/dL (9-16); Calcium 9.3 mg/dL (8.4-10.2); Carbon Dioxide 26 mmol/L (22-29); Chloride 103 mmol/L (96-108); Cholesterol 146 mg/dL; Estimated Glomerular Filt Rate > 60; Glucose Fasting 83 mg/dL (60-99); HDL Cholesterol 65 mg/dL; LDL Cholesterol Calculated 73 mg/dl; Potassium 4.2 mmol/L (3.3-5.1); Sodium 141 mmol/L (135-145); Total Protein 7.1 g/dL (6.5-8.0); Triglycerides 44 mg/dL
== END 2022-05-24 06:03 | disposition home or self-care (01) ==
LOC: HO.HMGCLDS 06:02
PROVIDERS: PCP Internal Medicine; Visit Provider Internal Medicine
DX: E78.5 Hyperlipidemia, unspecified (principal); I47.1 Supraventricular tachycardia
CPT/HCPCS: 36415; 80053; 80061; 85025

== ENCOUNTER → 2022-08-23 15:38 | Outpatient (BNVA) | payer BC, SELFPAY | PROVIDERS: PCP Internal Medicine; Visit Provider Internal Medicine Pulmonary Disease | DX: Z91.09 Other allergy status, other than to drugs and biological substances (principal); J45.909 Unspecified asthma, uncomplicated ==

== ENCOUNTER → 2022-12-06 15:47 | Outpatient (BNVA) | payer BC, SELFPAY | PROVIDERS: PCP Internal Medicine; Visit Provider Internal Medicine Pulmonary Disease | DX: Z91.09 Other allergy status, other than to drugs and biological substances (principal); J45.909 Unspecified asthma, uncomplicated ==

== ENCOUNTER 2022-12-17 16:34 | Outpatient (REF) | payer BC, SELFPAY ==
--- NOTE | ~2022-12-17 | MM_ITS ---
EXAMINATION: MM SCREENING DIGITAL BREAST TOMOSYNTHESIS, BILATERAL CLINICAL INFORMATION: Screening. Asymptomatic. The lifetime risk of breast cancer based on the Tyrer-Cuzick Model is 12.2%. COMPARISON: Mammography: January 05, 2021 and studies dating back to August 31, 2011 TECHNIQUE: Digital breast tomosynthesis is performed in both the craniocaudal and mediolateral oblique views along with computer-aided detection (CAD). Synthesized 2D images are generated from the tomosynthesis. FINDINGS: The breasts are heterogeneously dense, which may obscure small masses (ACR BI-RADS breast composition Category c). There are no significant masses, abnormal calcifications, or other abnormalities. MM/MM tomosynthesis screening BI IMPRESSION: No significant changes from prior exam. ASSESSMENT: BI-RADS 1: Negative RECOMMENDATION: Routine annual mammography screening. This patient's information was entered into a reminder system with a target due date for their next mammogram.
== END 2022-12-17 16:35 | disposition home or self-care (01) ==
LOC: HO.MAMMO 16:34
PROVIDERS: PCP Internal Medicine; Visit Provider Internal Medicine
DX: Z12.31 Encounter for screening mammogram for malignant neoplasm of breast (principal)
CPT/HCPCS: 77063; 77067

== ENCOUNTER 2023-01-07 14:48 | Outpatient (REF) | payer BC, SELFPAY ==
--- NOTE | ~2023-01-07 | MM_ITS ---
EXAMINATION: BONE DENSITOMETRY CLINICAL INDICATION: Osteopenia, unspecified location. COMPARISON: Previous BD dated 01/05/2021 and baseline BD dated 07/16/2016. TECHNIQUE: Using a [employer] DXA System (software version: 13.1) manufactured by [employer], dual-energy x-ray absorptiometry was performed of the lumbar spine and left hip. The images are of good technical quality. Summary results are attached. FINDINGS: AP SPINE L1-L4: Current: BMD 0.895 g/cm2, Z-score -1.1, T-score -2.4, osteopenia, 6.9% decrease from previous, 12.7% decrease from baseline (<5% change is not significant). Prior: BMD 0.961 g/cm2. Baseline: BMD 1.025 g/cm2. LEFT FEMUR, NECK: Current: BMD 0.746 g/cm2, Z-score -0.8, T-score -2.1, osteopenia. Prior: BMD 0.767 g/cm2. Baseline: BMD 0.850 g/cm2. LEFT FEMUR, TOTAL: Current: BMD 0.860 g/cm2, Z-score -0.2, T-score -1.2, osteopenia, 0.9% increase from previous, 4.3% decrease from baseline (<5% change is not significant). Prior: BMD 0.852 g/cm2. Baseline: BMD 0.899 g/cm2. IDENTIFIED RISK FACTORS: History of fracture (adult), menopause. HISTORY OF FRACTURE: Ribs; ankle. MEDICATIONS: Vitamin D. MM/XR DEXA axial skeleton IMPRESSION: 1. DIAGNOSIS: Osteopenia based on the lowest T-score value of -2.4 in the lumbar spine applying World Health Organization criteria. 2. 10-YEAR FRACTURE RISK PREDICTION, FRAX: Major osteoporotic fracture (clinical spine, forearm, hip or shoulder) 17.1%. Hip fracture 2.6%. 3. Treatment Recommendations: NOF guidelines recommend consideration for treatment in postmenopausal women and men age 50 and older presenting with the following: -A hip or vertebral (clinical or morphometric) fracture. -T-score less than or equal to -2.5 at the femoral neck or spine after appropriate evaluation to exclude secondary causes. -Low bone mass at the hip or spine and a 10-year fracture probability by FRAX of greater than or equal to 3% for hip fracture or greater than or equal to 20% for major osteoporotic fracture based on the [place] adapted WHO algorithm. 4. Other Recommendations: All treatment decisions require clinical judgment and consideration of individual patient factors, including patient preferences, comorbidities, previous drug use, risk factors not captured in the FRAX model (e.g. frailty, falls, vitamin D deficiency, increased bone turnover, interval significant decline in bone density) and possible under or overestimation of fracture risk by FRAX. Additional medical evaluation for secondary cause of low bone mineral density may be appropriate. FUTURE SCAN RECOMMENDATION: People with diagnosed cases of osteoporosis or at high risk for fracture should have regular bone mineral density tests. For patients eligible for Medicare, routine testing is allowed once every 2 years. The testing frequency can be increased to one year for patients who have rapidly progressing disease, those who are receiving or discontinuing medical therapy to restore bone mass, or have additional risk factors.
== END 2023-01-07 14:49 | disposition home or self-care (01) ==
LOC: HO.MAMMO 14:48
PROVIDERS: PCP Internal Medicine; Visit Provider Obstetrics & Gynecology
DX: Z13.820 Encounter for screening for osteoporosis (principal); Z78.0 Asymptomatic menopausal state
CPT/HCPCS: 77080

== ENCOUNTER 2023-02-06 17:03 | Outpatient (AMB) | payer BC, SELFPAY ==
[2023-02-06 17:18] VITALS: BP 110/78; BMI 24.3
--- NOTE | 2023-02-06 17:18 | A.OFFPC_ITS ---
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 Accompanied by: Self / Same As Patient Allergies amoxicillin [Amoxicillin] Allergy (Unknown, Verified 02/06/23 17:34) NAUSEA AND VOMITTING, nauseous doxycycline [Doxycycline] Allergy (Unknown, Verified 02/06/23 17:34) NAUSEA AND VOMITTING, upset stomach penicillin G Allergy (Unknown, Verified 02/06/23 17:34) Nausea tizanidine Adverse Reaction (Intermediate, Verified 02/06/23 17:34) vertigo grass,trees,dust Allergy (Unknown, Uncoded 02/06/23 17:34) Unknown Principin Allergy (Unknown, Uncoded 02/06/23 17:34) Vomiting Medication List - Last Reconciled 02/06/23 by Karen Delong MD acetaminophen mg PO acyclovir 400 mg PO BID albuterol sulfate 90 mcg/actuation 2 puffs PO Q4H PRN aspirin (Adult Low Dose Aspirin) 81 mg PO DAILY atorvastatin 40 mg PO DAILY cyclobenzaprine 5 - 10 mg PO BEDTIME PRN diclofenac sodium 1 tab PO BID epinephrine IM fluticasone propion-salmeterol 500-50 mcg/dose 1 inh inhalation BID 90 days lidocaine 5% 0 patches topical loratadine (Allergy Relief (loratadine)) 10 mg PO DAILY PRN 90 days Spiriva Respimat 1.25 mcg/actuation (tiotropium bromide) 2 puffs PO DAILY NS Tobacco use date assessed: 11/22/21 Dental Screening Dental Screen Date: 02/06/23 Did you have a dental visit in the last 12 months?: Yes Did you have a dental problem in the last 6 months where you did not have access to dental care?: No Was dental information given to patient?: Patient has dentist HPI HPI Comments History of Present Illness Details This is a 62-year-old female with dyslipidemia and asthma that comes today for follow-up on her conditions. Lipid panel will be order. She has asthma well control with medications and use rescue inhaler once a month. No chest pain or shortness of breath. Doing well. FOR[facility]LY [facility] Medical History (Updated 11/03/22 @ 17:43 by Karen Delong MD) Asthma CAD (coronary artery disease) Disc disorder Dyslipidemia HTN (hypertension) Low TSH level Non-toxic multinodular goiter SVT (supraventricular tachycardia) Thyroid nodule Surgical History Deficient knowledge of temporomandibular joint repair H/O arthroscopy History of back surgery History of carpal tunnel release of both wrists History of cervical spinal surgery History of colonoscopy with polypectomy History of discectomy Hx of neck surgery Family History Father Hypertension CVD (cardiovascular disease) S/P triple vessel bypass COPD (chronic obstructive pulmonary disease) Mother Stroke CVD (cardiovascular disease) Hypertension Paternal Aunt Cancer Sister Cancer Brother Hypertension Cancer Social History Housing: House Alcohol intake: never Patient Tobacco Use Status: Never used Tobacco e-Cigarette/Vaping Use: Never Used Second Hand Smoke Exposure: No service: No Current occupational status: employed 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 1. Little interest or pleasure in doing things: not at all 2. Feeling down, depressed, or hopeless: not at all 3. Trouble falling or staying asleep, or sleeping too much: not at all 4. Feeling tired or having little energy: not at all 5. Poor appetite or overeating: not at all 6. Feeling bad about yourself - or that you are a failure or have let yourself or your family down: not at all 7. Trouble concentrating on things, such as reading the newspaper or watching television: not at all 8. Moving or speaking so slowly that other people could have noticed. Or the opposite - being so fidgety or restless that you have been moving around a lot more than usual: not at all 9. Thoughts that you would be better off or of hurting yourself in some way: not at all Total score: 0 Depression Screening Interpretation: Negative 65203 - PHQ-9 Billing: Yes Source: Developed by Drs. Dusty Green, Ian Osorio and colleagues, with an educational sybil from [employer] Thrive Questionnaire Date Thrive assessed: 02/06/23 I am a: Patient What is your living situation today?: I have a steady place to live Within the past 12 months, did the food you bought not last and you didn't have the money to get more?: Never true Within the past 12 months, did you worry whether your food would run out before you got money to buy more?: Never true Do you have trouble paying for medicines?: No Do you have trouble getting transportation to medical appointments?: No Do you have trouble paying your heating and electricity bill?: No Do you have trouble taking care of your child, family member or friend?: No Do you have trouble with day-to-day activities such as bathing, preparing meals, shopping, managing finances, etc.?: No Are you currently unemployed and looking for a job?: No Are you interested in more education?: No Please select the resources that you would like help with: None Currently or been in a relationship where the following occur: no concerns reported AUDIT C Alcohol Use Questionnaire (AUDIT-C) 1. How often do you have a drink containing alcohol?: Never Total Score: 0 Score Reviewed/Action Taken: No PAULETTE-7 AMB Questionnaire PAULETTE-7 Date PAULETTE - 7 assessed: 02/06/23 Feeling nervous, anxious, or on edge: 0 = Not at all Not being able to stop or control worryin = Not at all Worrying too much about different things: 0 = Not at all Trouble relaxin = Not at all Being so restless that it is hard to sit still: 0 = Not at all Becoming easily annoyed or irritable: 0 = Not at all Feeling afraid as if something awful might happen: 0 = Not at all Total PAULETTE-7 score (0-4 normal; 5-9 mild; 10-14 moderate; 15-21 severe): 0 Source: Developed by Drs. Dusty Green, Ian Osorio and colleagues, with an educational sybil from [employer] PAULETTE-7 Assessment Billing PAULETTE-7 Assessment Tool: PAULETTE-7 Assessment 76383 Review of Systems Const All systems reviewed & are unremarkable except as noted in HPI and below Eyes Reports no additional complaints, Denies change in vision and Denies other visual disturbances Card Denies chest pain at rest, Denies chest pain with activity, Denies edema, Denies irregular heart rhythm, Denies claudication, Denies dyspnea, Denies dyspnea on exertion, Denies orthopnea, Denies paroxysmal nocturnal dyspnea and Denies slow heart rate Resp Denies cough, Denies dyspnea and Denies dyspnea on exertion GI Denies abdominal pain, Denies change in bowel habits, Denies excessive flatus, Denies nausea and Denies vomiting Denies urinary incontinence, Denies urinary hesitancy and Denies urinary urgency Musc Denies abnormal gait, Denies atrophy, Denies deformity and Denies limited range of motion Skin/Breast Denies bleeding lesions, Denies changing lesions and Denies rash Neuro Denies abnormal gait and Denies lack of coordination Physical exam (Primary Care) Vital Signs: Last Vital Signs BP 110/78 02/06/23 17:18 BMI result Body Mass Index 24.3 Tobacco/Smoking Status: Tobacco use Status Tobacco use date assessed 11/22/21 02/06/23 17:18 Patient Tobacco Use Status Never used Tobacco 02/06/23 17:18 e-Cigarette/Vaping Use Never Used 02/06/23 17:18 PHQ-9: PHQ-9 Score PHQ-9: Total score 0 02/06/23 17:47 Depression Screening Interpretation: Negative Thrive Assessment: Date of Thrive Assessment Date Thrive assessed 02/06/23 02/06/23 17:29 Currently or been in a relationship where the following occur: no concerns reported Eyes General: appearance normal, both eyes and all related structures Eyelids: Yes eyelids normal Conjunctivae: conjunctivae normal Neck Neck: Yes normal visual inspection and Yes supple Resp Effort & Inspection: normal respiratory effort Auscultation: clear to auscultation bilaterally Cardio Jugular venous distension: no JVD Rate: regular rate Rhythm: regular rhythm Heart sounds: S1 normal heart sound present and S2 normal heart sound present Extrem General: Yes full ROM Assessment and Plan Assessment & Plan (1) Dyslipidemia: Code(s): E78.5 - Hyperlipidemia, unspecified Plan: Continue statins. Repeat lipid panel. (2) Asthma: Code(s): J45.909 - Unspecified asthma, uncomplicated Plan: Use rescue inhaler as needed. Continue longstanding inhaler and Spiriva. Orders: Orders Comprehensive [place]. Panel Fast 4 Months I47.1 - Supraventricular tachycardia Lipid Panel 4 Months E78.5 - Hyperlipidemia, unspecified Vitamin D 25-OH Total 4 Months E55.9 - Vitamin D deficiency, unspecified Coding Level of Care Code Est Pt Level 3 (15239) Diagnoses Dyslipidemia E78.5 Asthma J45.909 Additional Codes PAULETTE-7 Assessment Billing - PAULETTE-7 Assessment Tool: PAULETTE-7 Assessment 58406 ([id number]) Time Spent (min) 17
== END 2023-02-06 17:44 | disposition home or self-care (01) ==
PROVIDERS: PCP Internal Medicine; Visit Provider Internal Medicine
DX: E78.5 Hyperlipidemia, unspecified (principal); J45.909 Unspecified asthma, uncomplicated
CPT/HCPCS: 99213

== ENCOUNTER 2023-06-04 06:34 | Outpatient (REF) | payer BC, SELFPAY ==
[2023-06-04 12:05] LABS: Alanine Aminotransferase 8 U/L (0-31); Albumin Level 4.2 g/dL (3.5-5.0); Alkaline Phosphatase 68 U/L (39-117); Anion Gap 12 (12-20); Aspartate Amino Transferase 21 U/L (5-31); Bilirubin Total 0.6 mg/dL (0.0-1.0); Blood Urea Nitrogen 14 mg/dL (9-16); Calcium 9.2 mg/dL (8.4-10.2); Carbon Dioxide 28 mmol/L (22-29); Chloride 107 mmol/L (96-108); Cholesterol 138 mg/dL (<200); Estimated Glomerular Filt Rate > 60; Glucose Fasting 79 mg/dL (60-99); HDL Cholesterol 66 mg/dL (>40); LDL Cholesterol Calculated 63 mg/dL (<100); Potassium 3.7 mmol/L (3.3-5.1); Sodium 143 mmol/L (135-145); Total Protein 6.8 g/dL (6.5-8.0); Triglycerides 47 mg/dL (<150); Vitamin D 25-OH Total 79.6 ng/mL (>30)
== END 2023-06-04 06:35 | disposition home or self-care (01) ==
LOC: HO.HMGCLDS 06:34
PROVIDERS: PCP Internal Medicine; Visit Provider Internal Medicine
DX: E55.9 Vitamin D deficiency, unspecified (principal); E78.5 Hyperlipidemia, unspecified; I10 Essential (primary) hypertension; I47.10 Supraventricular tachycardia, unspecified
CPT/HCPCS: 36415; 80053; 80061; 82306

== ENCOUNTER 2023-06-04 16:33 | Outpatient (AMB) | payer BC, SELFPAY ==
[2023-06-04 16:36] VITALS: BP 146/72; BMI 23.7
--- NOTE | 2023-06-04 16:36 | A.OFFPC_ITS ---
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 Accompanied by: Self / Same As Patient Allergies amoxicillin [Amoxicillin] Allergy (Unknown, Verified 06/04/23 16:54) NAUSEA AND VOMITTING, nauseous doxycycline [Doxycycline] Allergy (Unknown, Verified 06/04/23 16:54) NAUSEA AND VOMITTING, upset stomach penicillin G Allergy (Unknown, Verified 06/04/23 16:54) Nausea tizanidine Adverse Reaction (Intermediate, Verified 06/04/23 16:54) vertigo grass,trees,dust Allergy (Unknown, Uncoded 06/04/23 16:54) Unknown Principin Allergy (Unknown, Uncoded 06/04/23 16:54) Vomiting Medication List - Last Reconciled 06/04/23 by Karen Delong MD acetaminophen mg PO albuterol sulfate 90 mcg/actuation 2 puffs PO Q4H PRN aspirin (Adult Low Dose Aspirin) 81 mg PO DAILY atorvastatin 40 mg PO DAILY azelastine 2 sprays intranasal BID 30 days cyclobenzaprine 5 - 10 mg PO BEDTIME PRN diclofenac sodium 1 tab PO BID epinephrine IM fluticasone propion-salmeterol 500-50 mcg/dose (Advair Diskus) 1 ea inhalation BID lidocaine 5% 0 patches topical loratadine (Allergy Relief (loratadine)) 10 mg PO DAILY PRN 90 days metoprolol succinate ER 50 mg PO DAILY Spiriva Respimat 1.25 mcg/actuation (tiotropium bromide) 2 puffs PO DAILY NS valacyclovir 500 mg PO DAILY Tobacco use date assessed: 06/04/23 Dental Screening Dental Screen Date: 06/04/23 Did you have a dental visit in the last 12 months?: Yes Did you have a dental problem in the last 6 months where you did not have access to dental care?: No Was dental information given to patient?: Patient has dentist HPI HPI Comments History of Present Illness Details This is a 62 year old female with supraventricular tachycardia that comes for her physical exam. Mammogram and bone density done 2022. Pap smear as per patient done 2022 and was normal. Supraventricular stable with medications. No chest pain or shortness of breath. Colonoscopy done 2020. [facility] Medical History (Updated 05/30/22 @ 17:43 by Karen Delong MD) SVT (supraventricular tachycardia) CAD (coronary artery disease) Low TSH level Non-toxic multinodular goiter Thyroid nodule Dyslipidemia HTN (hypertension) Asthma Disc disorder Surgical History History of back surgery History of colonoscopy with polypectomy H/O arthroscopy Deficient knowledge of temporomandibular joint repair History of cervical spinal surgery History of carpal tunnel release of both wrists History of discectomy Hx of neck surgery Family History (Updated 06/04/23 @ 17:03 by Karen Delong MD) Father Hypertension CVD (cardiovascular disease) S/P triple vessel bypass COPD (chronic obstructive pulmonary disease) Mother Stroke CVD (cardiovascular disease) Hypertension Sister Cancer Brother Hypertension Cancer Maternal Aunt Cancer Social History Housing: House Alcohol intake: never Patient Tobacco Use Status: Never used Tobacco e-Cigarette/Vaping Use: Never Used Second Hand Smoke Exposure: No service: No Current occupational status: employed 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 1. Little interest or pleasure in doing things: not at all 2. Feeling down, depressed, or hopeless: not at all 3. Trouble falling or staying asleep, or sleeping too much: not at all 4. Feeling tired or having little energy: not at all 5. Poor appetite or overeating: not at all 6. Feeling bad about yourself - or that you are a failure or have let yourself or your family down: not at all 7. Trouble concentrating on things, such as reading the newspaper or watching television: not at all 8. Moving or speaking so slowly that other people could have noticed. Or the opposite - being so fidgety or restless that you have been moving around a lot more than usual: not at all 9. Thoughts that you would be better off or of hurting yourself in some way: not at all Total score: 0 Depression Screening Interpretation: Negative Depression Screening Done: Yes 00164 - PHQ-9 Billing: Yes Source: Developed by Drs. Dusty Green, Poornima Marshall, Ian Hanks and colleagues, with an educational sybil from [employer]. Thrive Questionnaire Date Thrive assessed: 02/06/23 I am a: Patient What is your living situation today?: I have a steady place to live Within the past 12 months, did the food you bought not last and you didn't have the money to get more?: Never true Within the past 12 months, did you worry whether your food would run out before you got money to buy more?: Never true Do you have trouble paying for medicines?: No Do you have trouble getting transportation to medical appointments?: No Do you have trouble paying your heating and electricity bill?: No Do you have trouble taking care of your child, family member or friend?: No Do you have trouble with day-to-day activities such as bathing, preparing meals, shopping, managing finances, etc.?: No Are you currently unemployed and looking for a job?: No Are you interested in more education?: No Please select the resources that you would like help with: None Currently or been in a relationship where the following occur: no concerns reported AUDIT C Alcohol Use Questionnaire (AUDIT-C) 1. How often do you have a drink containing alcohol?: Never 3. How often do you have six or more drinks on one occasion?: Never Total Score: 0 Score Reviewed/Action Taken: No PAULETTE-7 AMB Questionnaire PAULETTE-7 Date PAULETTE - 7 assessed: 06/04/23 Feeling nervous, anxious, or on edge: 0 = Not at all Not being able to stop or control worryin = Not at all Worrying too much about different things: 0 = Not at all Trouble relaxin = Not at all Being so restless that it is hard to sit still: 0 = Not at all Becoming easily annoyed or irritable: 0 = Not at all Feeling afraid as if something awful might happen: 0 = Not at all Total PAULETTE-7 score (0-4 normal; 5-9 mild; 10-14 moderate; 15-21 severe): 0 Source: Developed by Drs. Dusty Green, Poornima Marshall, Ian Hanks and colleagues, with an educational sybil from [employer]. PAULETTE-7 Assessment Billing PAULETTE-7 Assessment Tool: PAULETTE-7 Assessment 86002 Review of Systems Const All systems reviewed & are unremarkable except as noted in HPI and below Eyes Reports no additional complaints, Denies change in vision and Denies other visual disturbances Card Denies chest pain at rest, Denies chest pain with activity, Denies edema, Denies irregular heart rhythm, Denies claudication, Denies dyspnea, Denies dyspnea on exertion, Denies orthopnea, Denies paroxysmal nocturnal dyspnea and Denies slow heart rate Resp Denies cough, Denies dyspnea and Denies dyspnea on exertion GI Denies abdominal pain, Denies change in bowel habits, Denies excessive flatus, Denies nausea and Denies vomiting Denies urinary incontinence, Denies urinary hesitancy and Denies urinary urgency Musc Denies abnormal gait, Denies atrophy, Denies deformity and Denies limited range of motion Skin/Breast Denies bleeding lesions, Denies changing lesions and Denies rash Neuro Denies abnormal gait and Denies lack of coordination Physical exam (Primary Care) Vital Signs: Last Vital Signs BP 146/72 H 06/04/23 16:36 Oxygen Delivery Method Room Air 06/04/23 16:36 BMI result Body Mass Index 23.7 Tobacco/Smoking Status: Tobacco use Status Tobacco use date assessed 06/04/23 06/04/23 16:41 Patient Tobacco Use Status Never used Tobacco 06/04/23 16:41 e-Cigarette/Vaping Use Never Used 06/04/23 16:41 PHQ-9: PHQ-9 Score PHQ-9: Total score 0 06/04/23 16:57 Depression Screening Interpretation: Negative Thrive Assessment: Date of Thrive Assessment Date Thrive assessed 02/06/23 06/04/23 16:41 Currently or been in a relationship where the following occur: no concerns reported Const Orientation/consciousness: patient oriented x3 HENMT Head: Yes normal to inspection, Yes normocephalic and Yes atraumatic Ears: external ears normal Eyes General: appearance normal, both eyes and all related structures Eyelids: Yes eyelids normal Conjunctivae: conjunctivae normal Neck Neck: Yes normal visual inspection and Yes supple Resp Effort & Inspection: normal respiratory effort Auscultation: clear to auscultation bilaterally Cardio Jugular venous distension: no JVD Rate: regular rate Rhythm: regular rhythm Heart sounds: S1 normal heart sound present and S2 normal heart sound present GI Inspection: Yes normal to inspection Palpation (GI): Soft to palpation and nontender Auscultation: normal bowel sounds Skin General skin exam: no rashes or lesions noted Neuro General: patient oriented x3 and no focal motor deficits Extrem General: Yes full ROM Psych Appearance: grossly normal Assessment and Plan Assessment & Plan (1) Physical exam: Code(s): Z00.00 - Encounter for general adult medical examination without abnormal findings Plan: Repeat in a year. (2) SVT (supraventricular tachycardia): Comment: s/p ablation 2018 Code(s): I47.1 - Supraventricular tachycardia Plan: Continue metoprolol. Coding Level of Care Code Est Pt Prev Care 40-64y(04065) Diagnoses Physical exam Z00.00 SVT (supraventricular tachycardia) I47.1 Additional Codes PAULETTE-7 Assessment Billing - PAULETTE-7 Assessment Tool: PAULETTE-7 Assessment 04739 ([id number]) Time Spent (min) 30
[2023-06-06 09:57] VITALS: BP 138/72
== END 2023-06-04 17:14 | disposition home or self-care (01) ==
PROVIDERS: PCP Internal Medicine; Visit Provider Internal Medicine
DX: Z00.00 Encounter for general adult medical examination without abnormal findings (principal); I47.1 Supraventricular tachycardia
CPT/HCPCS: 99396

== ENCOUNTER 2023-06-27 14:03 | Outpatient (AMB) | payer BC, SELFPAY ==
[2023-06-27 14:10] VITALS: BP 110/64; PULSE 84; O2SAT 98; BMI 23.7
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
== END 2023-06-27 14:30 | disposition home or self-care (01) ==
PROVIDERS: PCP Internal Medicine; Visit Provider Internal Medicine Pulmonary Disease
DX: J45.909 Unspecified asthma, uncomplicated (principal)
CPT/HCPCS: 99213

== ENCOUNTER → 2023-06-27 14:03 | Outpatient (BNVA) | payer BC, SELFPAY | PROVIDERS: PCP Internal Medicine; Visit Provider Internal Medicine Pulmonary Disease | DX: Z91.09 Other allergy status, other than to drugs and biological substances (principal); J45.909 Unspecified asthma, uncomplicated ==

== ENCOUNTER 2024-01-02 15:45 | Outpatient (AMB) | payer BC, SELFPAY ==
--- NOTE | 2024-01-02 15:48 | A.OFFVIS_ITS ---
Vital Signs 01/02/24 15:49 Height 5 ft 3 in Weight 137 lb 12.623 oz BMI 24.4 BP 128/80 Blood Pressure Location Lt brachial Position Sitting Pulse 75 Pulse Source Doppler Pulse Oximetry (%) 95 Oxygen Delivery Method Room Air Intake Visit Reasons: Chronic cough Allergies amoxicillin [Amoxicillin] Allergy (Unknown, Verified 01/02/24 15:52) NAUSEA AND VOMITTING, nauseous doxycycline [Doxycycline] Allergy (Unknown, Verified 01/02/24 15:52) NAUSEA AND VOMITTING, upset stomach penicillin G Allergy (Unknown, Verified 01/02/24 15:52) Nausea tizanidine Adverse Reaction (Intermediate, Verified 01/02/24 15:52) vertigo grass,trees,dust Allergy (Unknown, Uncoded 06/27/23 14:14) Unknown Principin Allergy (Unknown, Uncoded 06/27/23 14:14) Vomiting HPI HPI Chronic cough: Details: 63-year-old lady, remote minimal smoker in high school, with underlying history of multiple environmental allergies, asthma, nasal bleeds, immune deficiency on IVIG by senior care assistant (previously by Dr. Burnham) and desensitization injections by ENT (Dr. Chin), treated also with Advair 500 and Spiriva, and albuterol MDI, with reasonable control his symptoms. Recently her Advair has been changed to Breo 200 secondary to drug availability and patient states that her symptoms are better control on Breo than they were on Advair. She denies any recent exacerbations. [facility] Medical History (Updated 05/30/22 @ 17:43 by Karen Delong MD) SVT (supraventricular tachycardia) CAD (coronary artery disease) Low TSH level Non-toxic multinodular goiter Thyroid nodule Dyslipidemia HTN (hypertension) Asthma Disc disorder Surgical History History of back surgery History of colonoscopy with polypectomy H/O arthroscopy Deficient knowledge of temporomandibular joint repair History of cervical spinal surgery History of carpal tunnel release of both wrists History of discectomy Hx of neck surgery Family History (Updated 06/04/23 @ 17:03 by Karen Delong MD) Father Hypertension CVD (cardiovascular disease) S/P triple vessel bypass COPD (chronic obstructive pulmonary disease) Mother Stroke CVD (cardiovascular disease) Hypertension Sister Cancer Brother Hypertension Cancer Maternal Aunt Cancer Social History Housing: House Alcohol intake: never Patient Tobacco Use Status: Never used Tobacco e-Cigarette/Vaping Use: Never Used Second Hand Smoke Exposure: No service: No Current occupational status: employed 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 [place] Current occupational exposures/hazards: No Cognitive needs: Yes Hearing needs: No Vision needs: Yes Review of Systems Card Denies dyspnea on exertion Resp Denies cough, Denies excessive phlegm production, Denies dyspnea on exertion and Denies wheezing Aller/Immun Denies wheezing Physical Exam Vital Signs: Last Vital Signs Pulse 75 01/02/24 15:49 BP 128/80 01/02/24 15:49 Pulse Ox 95 01/02/24 15:49 Oxygen Delivery Method Room Air 01/02/24 15:49 BMI result Body Mass Index 24.4 Const General: no acute distress and alert Nutritional Appearance: not obese Orientation/consciousness: Other orientation findings ( oriented) HEENT Head: Yes atraumatic Eyes General: appearance normal, both eyes and all related structures Sclerae: sclerae normal EOM: EOMs intact bilaterally Neck Neck: Yes supple Lymphatic: no lymphadenopathy noted Resp Effort & Inspection: normal respiratory effort and no use of accessory muscles Auscultation: clear to auscultation bilaterally Cardio Rate: regular rate Rhythm: regular rhythm Heart sounds: no gallops, no murmurs and no rubs Skin General skin exam: other ( warm) Extrem General: No clubbing, No cyanosis and No edema Assessment & Plan Assessment & Plan (1) Asthma: Code(s): J45.909 - Unspecified asthma, uncomplicated Category: Medical Plan: Well controlled on current regimen of Breo, Spiriva, and albuterol MDI. Continue current regimen. Coding Level of Care Code Est Pt Level 3 (52103) Diagnoses Asthma J45.909
[2024-01-02 15:49] VITALS: BP 128/80; PULSE 75; O2SAT 95; BMI 24.4
== END 2024-01-02 16:03 | disposition home or self-care (01) ==
PROVIDERS: PCP Internal Medicine; Visit Provider Internal Medicine Pulmonary Disease
DX: J45.909 Unspecified asthma, uncomplicated (principal)
CPT/HCPCS: 99213

== ENCOUNTER → 2024-01-02 15:45 | Outpatient (BNVA) | payer BC, SELFPAY | PROVIDERS: PCP Internal Medicine; Visit Provider Internal Medicine Pulmonary Disease | DX: Z91.09 Other allergy status, other than to drugs and biological substances (principal); J45.909 Unspecified asthma, uncomplicated ==

== ENCOUNTER 2024-03-16 11:31 | Outpatient (REF) | payer BC, SELFPAY ==
[2024-03-16 14:02] LABS: Cholesterol 158 mg/dL (<200); HDL Cholesterol 86 mg/dL (>40); LDL Cholesterol Calculated 63 mg/dL (<100); Triglycerides 48 mg/dL (<150)
== END 2024-03-16 11:32 | disposition home or self-care (01) ==
LOC: HO.HMGCLDS 11:31
PROVIDERS: PCP Internal Medicine; Visit Provider Internal Medicine Cardiovascular Disease
DX: R07.9 Chest pain, unspecified (principal); I47.19 Other supraventricular tachycardia; Z98.890 Other specified postprocedural states
CPT/HCPCS: 36415; 80061

== ENCOUNTER 2024-03-17 10:51 | Outpatient (AMB) | payer BC, SELFPAY ==
--- NOTE | 2024-03-17 10:51 | AM.OFFWIN_ITS ---
Intake Vital Signs 03/17/24 10:53 Height 5 ft 3 in Weight 138 lb BMI 24.4 BP 130/88 Blood Pressure Location Rt brachial Position Sitting Pulse 90 Pulse Source Pulse Oximeter Temp 98.3 F Temp Source Oral Pulse Oximetry (%) 98 Oxygen Delivery Method Room Air Intake Visit Reasons: EP- Coughing, not feeling well Intake Note: pt c/o cough, SOB. Ongoing for 1 1/2 weeks Patient Tobacco Use Status: Never used Tobacco Allergies amoxicillin [Amoxicillin] Allergy (Unknown, Verified 03/17/24 10:52) NAUSEA AND VOMITTING, nauseous doxycycline [Doxycycline] Allergy (Unknown, Verified 03/17/24 10:52) NAUSEA AND VOMITTING, upset stomach penicillin G Allergy (Unknown, Verified 03/17/24 10:52) Nausea tizanidine Adverse Reaction (Intermediate, Verified 03/17/24 10:52) vertigo grass,trees,dust Allergy (Unknown, Uncoded 03/17/24 10:52) Unknown Principin Allergy (Unknown, Uncoded 03/17/24 10:52) Vomiting Medication List - Last Reconciled 03/17/24 by Jasmina Paul NP acetaminophen mg PO PRN albuterol sulfate 90 mcg/actuation 2 inhalations PO Q4H PRN aspirin (Adult Low Dose Aspirin) 81 mg PO DAILY atorvastatin 40 mg PO DAILY azelastine 2 sprays intranasal BID 30 days cyclobenzaprine 5 - 10 mg PO BEDTIME PRN epinephrine IM lidocaine 5% 1 patch topical DAILY loratadine (Allergy Relief (loratadine)) 10 mg PO DAILY losartan 25 mg PO DAILY metoprolol succinate ER 50 mg PO DAILY omeprazole 20 mg PO DAILY PRN 90 days Spiriva Respimat 1.25 mcg/actuation (tiotropium bromide) 2 inhalations PO DAILY NS valacyclovir 500 mg PO DAILY Do you need a note to return to daycare/school/sports/work: Yes HPI EP- Coughing, not feeling well HPI Details This note is constructed using voice recognition software. While every effort has been made to ensure accuracy, lead inspector errors may have been included. The patient is a 63 year old female who presents to the clinic today with cough and dyspnea in the setting of asthma for the past nearly 2 weeks. She has had negative at-home COVID test x2. She is a former smoker quit several years ago. She has not had fever, chills, does feel generally dyspneic on exertion. She is using her nebulizer at home. She contacted her primary care provider who put her on a short burst of steroids, which did not seem to improve the symptoms, s he subsequently called her sign installer who put her on an additional burst of steroids and azithromycin which did not seem to improve the symptoms. She ran out of her Breo 2 days ago, and is contact of the pharmacy to obtain refill. She is also running out of her albuterol for her nebulizer, which she is using multiple times per day. She finds the nebulizer to help the best. [facility] Medical History (Updated 03/17/24 @ 11:19 by Jasmina Paul NP) SVT (supraventricular tachycardia) CAD (coronary artery disease) Low TSH level Non-toxic multinodular goiter Thyroid nodule Dyslipidemia HTN (hypertension) Asthma Disc disorder Surgical History History of back surgery History of colonoscopy with polypectomy H/O arthroscopy Deficient knowledge of temporomandibular joint repair History of cervical spinal surgery History of carpal tunnel release of both wrists History of discectomy Hx of neck surgery Family History (Updated 06/04/23 @ 17:03 by Karen Delong MD) Father Hypertension CVD (cardiovascular disease) S/P triple vessel bypass COPD (chronic obstructive pulmonary disease) Mother Stroke CVD (cardiovascular disease) Hypertension Sister Cancer Brother Hypertension Cancer Maternal Aunt Cancer Social History Housing: House Alcohol intake: never Patient Tobacco Use Status: Never used Tobacco e-Cigarette/Vaping Use: Never Used Second Hand Smoke Exposure: No service: No Current occupational status: employed 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 [place] Current occupational exposures/hazards: No Cognitive needs: Yes Hearing needs: No Vision needs: Yes Review of Systems Const All systems reviewed & are unremarkable except as noted in HPI and below Physical Exam Vital Signs: Last Vital Signs Temp 98.3 F 03/17/24 10:53 Pulse 90 03/17/24 10:53 BP 130/88 03/17/24 10:53 Pulse Ox 98 03/17/24 10:53 Oxygen Delivery Method Room Air 03/17/24 10:53 BMI result Body Mass Index 24.4 Const General: cooperative, healthy appearing, comfortable, no acute distress and alert Orientation/consciousness: patient oriented x3 Limitations: no limitations HEENT Head: Yes normal to inspection and Yes normocephalic Ears: hearing grossly normal bilaterally General nose exam: Normal external nose present Face and sinus: Yes normal facial exam and Yes sinuses nontender Mouth: Normal oral and palatal mucosa present and tongue normal Teeth and gingiva: dentition normal Throat: Yes posterior oropharynx normal Eyes General: appearance normal, both eyes and all related structures Neck Neck: Yes normal visual inspection, Yes full ROM and Yes no lymphadenopathy Resp Effort & Inspection: normal respiratory effort and able to speak in complete sentences Auscultation: clear to auscultation bilaterally Cardio Jugular venous distension: no JVD Palpation: normal PMI Rate: regular rate Heart sounds: S1 normal heart sound present, S2 normal heart sound present, no click, no gallops, no murmurs and no rubs Skin General skin exam: no rashes or lesions noted, elasticity normal and turgor normal Neuro General: patient oriented x3 Psych Appearance: grossly normal Mental Status: mental status grossly normal Speech and movement: Normal speech and movement present Affect: normal affect Assessment & Plan Assessment & Plan (1) Asthma: Code(s): J45.909 - Unspecified asthma, uncomplicated Qualifiers: Asthma complication type: with acute exacerbation Asthma persistence: persistent Asthma severity: moderate Qualified Code(s): J45.41 - Moderate persistent asthma with (acute) exacerbation Plan: Advised patient to continue to follow with specialty in primary care for ongoing management. She has run out of her routine inhaler, and is in contact with the pharmacy for this. Refill provided today for albuterol nebulizer solution. (2) Asthma exacerbation: Code(s): J45.901 - Unspecified asthma with (acute) exacerbation Qualifiers: Asthma persistence: persistent Asthma severity: moderate Qualified Code(s): J45.41 - Moderate persistent asthma with (acute) exacerbation Plan: Prednisone with taper ordered for symptomatic management. We also obtain chest x-ray today to rule out any additional etiology contributing to this given her prolonged symptoms, awaiting official radiology read. Albuterol nebulizer solution ordered additionally for symptomatic management. Reviewed appropriate use of nebulizer. Advised follow up with worsening or failure to resolve. Plan See above for full details and plan. Orders: Orders XR chest 2V Today Jasmina Paul NP J45.901 - Unspecified asthma with (acute) exacerbation Medications: New albuterol sulfate 1.25 mg (3 mL) inhalation QID PRN 75 mL 0RF shortness of breath or wheezing Jasmina Paul NP prednisone see taper instructions: 5 pills daily for 2 days, then 4 pills daily for 2 days, then 3 pills daily for 2 days, then 2 pills daily for 2 days, then 1 pill daily for 2 days. 10 mg PO DIRECTED 30 tabs 0RF Jasmina Paul NP Changed From loratadine (Allergy Relief (loratadine)) 10 mg PO DAILY 90 days PRN 90 tabs 1RF allergy symptoms To loratadine (Allergy Relief (loratadine)) 10 mg PO DAILY Karen Delong MD Coding Level of Care Code Est Pt Level 4 (28397) Diagnoses Moderate persistent asthma with acute exacerbation J45.41 Asthma complication type: with acute exacerbation Asthma persistence: persistent Asthma severity: moderate Moderate persistent asthma with exacerbation J45.41 Asthma persistence: persistent Asthma severity: moderate
[2024-03-17 10:53] VITALS: BP 130/88; PULSE 90; TEMP 36.8; O2SAT 98; BMI 24.4
== END 2024-03-17 11:28 | disposition home or self-care (01) ==
PROVIDERS: PCP Internal Medicine; Visit Provider Registered Nurse
DX: J45.41 Moderate persistent asthma with (acute) exacerbation (principal)
CPT/HCPCS: 99214

== ENCOUNTER 2024-03-17 11:15 | Outpatient (REF) | payer BC, SELFPAY ==
--- NOTE | ~2024-03-17 | XR_ITS ---
EXAMINATION: XR CHEST CLINICAL INFORMATION: Unspecified asthma with acute exacerbation COMPARISON: 05/26/2018. TECHNIQUE: 2 views of the chest were obtained. FINDINGS: Lungs clear. No pleural effusions. There is slight elevation of the right hemidiaphragm. Heart size portal and with normal caliber pulmonary vessels. Postsurgical change overlies the C-spine. XR/XR chest 2V IMPRESSION: No active disease. Electronically signed by: Genaro Velarde MD 03/17/2024 04:47 PM EDT
== END 2024-03-17 11:16 | disposition home or self-care (01) ==
LOC: HO.HMGCX 11:15
PROVIDERS: PCP Internal Medicine; Visit Provider Registered Nurse
DX: J45.901 Unspecified asthma with (acute) exacerbation (principal)
CPT/HCPCS: 71046

== ENCOUNTER 2024-06-09 16:46 | Outpatient (AMB) | payer BC, SELFPAY ==
[2024-06-09 16:47] VITALS: BP 136/84; BMI 25.2
--- NOTE | 2024-06-09 16:47 | A.OFFPC_ITS ---
Vital Signs 06/09/24 16:47 Height 5 ft 3 in Weight 142 lb BMI 25.2 BP 136/84 Blood Pressure Location Lt brachial Position Sitting Intake Visit Reasons: pe Intake Note: Patient here for a physical exam Proof Coins Inspector Required: No Accompanied by: Self / Same As Patient Allergies amoxicillin [Amoxicillin] Allergy (Unknown, Verified 06/09/24 16:59) NAUSEA AND VOMITTING, nauseous doxycycline [Doxycycline] Allergy (Unknown, Verified 06/09/24 16:59) NAUSEA AND VOMITTING, upset stomach penicillin G Allergy (Unknown, Verified 06/09/24 16:59) Nausea tizanidine Adverse Reaction (Intermediate, Verified 06/09/24 16:59) vertigo grass,trees,dust Allergy (Unknown, Uncoded 06/09/24 16:59) Unknown Principin Allergy (Unknown, Uncoded 06/09/24 16:59) Vomiting Medication List - Last Reconciled 06/09/24 by Karen Delong MD acetaminophen mg PO PRN albuterol sulfate 1.25 mg (3 mL) inhalation QID PRN albuterol sulfate 90 mcg/actuation 2 inhalations PO Q4H PRN aspirin (Adult Low Dose Aspirin) 81 mg PO DAILY atorvastatin 40 mg PO DAILY azelastine 2 sprays intranasal BID 30 days cyclobenzaprine 5 - 10 mg PO BEDTIME PRN epinephrine IM fluticasone furoate-vilanterol 50-25 mcg/dose (Breo Ellipta) inhalation lidocaine 5% 1 patch topical DAILY loratadine (Allergy Relief (loratadine)) 10 mg PO DAILY losartan 25 mg PO DAILY metoprolol succinate ER 50 mg PO DAILY omeprazole 20 mg PO DAILY PRN 90 days prednisone 10 mg PO DIRECTED Spiriva Respimat 1.25 mcg/actuation (tiotropium bromide) 2 inhalations PO DAILY NS valacyclovir 500 mg PO DAILY Tobacco use date assessed: 06/09/24 Dental Screening Dental Screen Date: 06/09/24 Did you have a dental visit in the last 12 months?: Yes Did you have a dental problem in the last 6 months where you did not have access to dental care?: No Was dental information given to patient?: Patient has dentist HPI HPI Comments History of Present Illness Details This is a 63-year-old female with supraventricular tachycardia status post ablation in 2019 that comes for her physical exam. Mammogram done over a year ago. I will order another mammogram. Pap smear done 2022. Colonoscopy done 2020 and showed tubular adenoma therefore I will send her for another colonoscopy. Denies any chest pain or shortness on breath. [facility] Medical History SVT (supraventricular tachycardia) CAD (coronary artery disease) Low TSH level Non-toxic multinodular goiter Thyroid nodule Dyslipidemia HTN (hypertension) Asthma Disc disorder Surgical History History of back surgery History of colonoscopy with polypectomy H/O arthroscopy Deficient knowledge of temporomandibular joint repair History of cervical spinal surgery History of carpal tunnel release of both wrists History of discectomy Hx of neck surgery Family History Father Hypertension CVD (cardiovascular disease) S/P triple vessel bypass COPD (chronic obstructive pulmonary disease) Mother Stroke CVD (cardiovascular disease) Hypertension Sister Cancer Brother Hypertension Cancer Maternal Aunt Cancer Social History Housing: House Alcohol intake: never Patient Tobacco Use Status: Never used Tobacco e-Cigarette/Vaping Use: Never Used Second Hand Smoke Exposure: No service: No Current occupational status: employed 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 1. Little interest or pleasure in doing things: not at all 2. Feeling down, depressed, or hopeless: not at all 3. Trouble falling or staying asleep, or sleeping too much: not at all 4. Feeling tired or having little energy: not at all 5. Poor appetite or overeating: not at all 6. Feeling bad about yourself - or that you are a failure or have let yourself or your family down: not at all 7. Trouble concentrating on things, such as reading the newspaper or watching television: not at all 8. Moving or speaking so slowly that other people could have noticed. Or the opposite - being so fidgety or restless that you have been moving around a lot more than usual: not at all 9. Thoughts that you would be better off or of hurting yourself in some way: not at all Total score: 0 Depression Screening Interpretation: Negative Depression Screening Done: Yes 30950 - PHQ-9 Billing: Yes Source: Developed by Drs. Dusty Green, Poornima Marshall, Ian Hanks and colleagues, with an educational sybil from [employer]. Thrive Questionnaire Date Thrive assessed: 06/09/24 I am a: Patient What is your living situation today?: I have a steady place to live Within the past 12 months, did the food you bought not last and you didn't have the money to get more?: Never true Within the past 12 months, did you worry whether your food would run out before you got money to buy more?: Never true Do you have trouble paying for medicines?: No Do you have trouble getting transportation to medical appointments?: No Do you have trouble paying your heating and electricity bill?: No Do you have trouble taking care of your child, family member or friend?: No Do you have trouble with day-to-day activities such as bathing, preparing meals, shopping, managing finances, etc.?: No Are you currently unemployed and looking for a job?: No Are you interested in more education?: No Please select the resources that you would like help with: None Currently or been in a relationship where the following occur: No concerns reported THRIVE Score: 0 AUDIT C Alcohol Use Questionnaire (AUDIT-C) 1. How often do you have a drink containing alcohol?: Never Total Score: 0 Score Reviewed/Action Taken: No PAULETTE-7 AMB Questionnaire PAULETTE-7 Date PAULETTE - 7 assessed: 06/09/24 Feeling nervous, anxious, or on edge: 0 = Not at all Not being able to stop or control worryin = Not at all Worrying too much about different things: 0 = Not at all Trouble relaxin = Not at all Being so restless that it is hard to sit still: 0 = Not at all Becoming easily annoyed or irritable: 0 = Not at all Feeling afraid as if something awful might happen: 0 = Not at all Total PAULETTE-7 score (0-4 normal; 5-9 mild; 10-14 moderate; 15-21 severe): 0 Source: Developed by Drs. Dusty Green, Poornima Marshall, Ian Hanks and colleagues, with an educational sybil from [employer]. PAULETTE-7 Assessment Billing PAULETTE-7 Assessment Tool: PAULETTE-7 Assessment 72486 Review of Systems Const All systems reviewed & are unremarkable except as noted in HPI and below Card Denies chest pain at rest, Denies chest pain with activity, Denies edema, Denies irregular heart rhythm, Denies claudication, Denies dyspnea, Denies dyspnea on exertion, Denies orthopnea, Denies paroxysmal nocturnal dyspnea and Denies slow heart rate Resp Denies cough, Denies dyspnea and Denies dyspnea on exertion GI Denies abdominal pain, Denies change in bowel habits, Denies excessive flatus, Denies nausea and Denies vomiting Physical exam (Primary Care) Vital Signs: Last Vital Signs BP 136/84 06/09/24 16:47 BMI result Body Mass Index 25.2 Tobacco/Smoking Status: Tobacco use Status Tobacco use date assessed 06/09/24 06/09/24 16:52 Patient Tobacco Use Status Never used Tobacco 06/09/24 16:52 e-Cigarette/Vaping Use Never Used 06/09/24 16:52 PHQ-9: PHQ-9 Score PHQ-9: Total score 0 06/10/24 08:15 Depression Screening Interpretation: Negative Thrive Assessment: Date of Thrive Assessment Date Thrive assessed 06/09/24 06/09/24 16:52 Currently or been in a relationship where the following occur: No concerns reported Const Orientation/consciousness: patient oriented x3 [facility] Head: Yes normal to inspection, Yes normocephalic and Yes atraumatic Ears: external ears normal Eyes General: appearance normal, both eyes and all related structures Eyelids: Yes eyelids normal Conjunctivae: conjunctivae normal Neck Neck: Yes normal visual inspection and Yes supple Resp Effort & Inspection: normal respiratory effort Auscultation: clear to auscultation bilaterally Cardio Jugular venous distension: no JVD Rate: regular rate Rhythm: regular rhythm Heart sounds: S1 normal heart sound present and S2 normal heart sound present GI Inspection: Yes normal to inspection Palpation (GI): Soft to palpation and nontender Auscultation: normal bowel sounds Skin General skin exam: no rashes or lesions noted Neuro General: patient oriented x3 and no focal motor deficits Extrem General: Yes full ROM Psych Appearance: grossly normal Coding Level of Care Code Est Pt Prev Care 40-64y(85290) Diagnoses Physical exam Z00.00 SVT (supraventricular tachycardia) I47.1 Additional Codes PAULETTE-7 Assessment Billing - PAULETTE-7 Assessment Tool: PAULETTE-7 Assessment 50721 ([id number]) PHQ-9 - 51016 - PHQ-9 Billing: Yes ([id number]) Time Spent (min) 30 Assessment & Plan Assessment & Plan (1) Physical exam: Code(s): Z00.00 - Encounter for general adult medical examination without abnormal findings Category: Medical Plan: Repeat in a year. (2) SVT (supraventricular tachycardia): Comment: s/p ablation 2019 Code(s): I47.1 - Supraventricular tachycardia Category: Medical Plan: Continue metoprolol. Orders: Orders MM tomosynthesis screening BI 06/09/24 Z12.31 - Encounter for screening mammogram for malignant neoplasm of breast Referrals Open Access Screening Colonoscopy Referral Z12.12 - Encounter for screening for malignant neoplasm of rectum
== END 2024-06-09 17:11 | disposition home or self-care (01) ==
PROVIDERS: PCP Internal Medicine; Visit Provider Internal Medicine
DX: Z00.00 Encounter for general adult medical examination without abnormal findings (principal); I47.10 Supraventricular tachycardia, unspecified

== ENCOUNTER → 2024-06-09 16:46 | Outpatient (BNVA) | payer BC, SELFPAY | PROVIDERS: PCP Internal Medicine; Visit Provider Internal Medicine | DX: Z00.00 Encounter for general adult medical examination without abnormal findings (principal); I47.10 Supraventricular tachycardia, unspecified; Z79.899 Other long term (current) drug therapy | CPT/HCPCS: 96127 ==

== ENCOUNTER 2024-06-18 15:39 | Outpatient (AMB) | payer BC, SELFPAY ==
--- NOTE | 2024-06-18 15:43 | MHC.OFFVIS ---
Vital Signs 06/18/24 15:44 Height 5 ft 3 in Weight 143 lb BMI 25.3 BP 130/86 Blood Pressure Location Rt brachial Position Sitting Pulse 71 Pulse Source Doppler Pulse Oximetry (%) 98 Oxygen Delivery Method Room Air Intake Visit Reasons: Cough Allergies amoxicillin [Amoxicillin] Allergy (Unknown, Verified 06/09/24 16:59) NAUSEA AND VOMITTING, nauseous doxycycline [Doxycycline] Allergy (Unknown, Verified 06/09/24 16:59) NAUSEA AND VOMITTING, upset stomach penicillin G Allergy (Unknown, Verified 06/09/24 16:59) Nausea tizanidine Adverse Reaction (Intermediate, Verified 06/09/24 16:59) vertigo grass,trees,dust Allergy (Unknown, Uncoded 06/09/24 16:59) Unknown Principin Allergy (Unknown, Uncoded 06/09/24 16:59) Vomiting HPI HPI Cough: Details: 63-year-old lady, remote minimal smoker in high school, with underlying history of multiple environmental allergies, asthma, nasal bleeds, immune deficiency on IVIG by planning intern (previously by Dr. Burnham) and desensitization injections by ENT (Dr. Chin), now with reasonable control on Breo, Spiriva, and albuterol MDI. Patient did have several exacerbations requiring several prednisone courses. She also has been having allergy symptoms over fall months. [facility] Medical History SVT (supraventricular tachycardia) CAD (coronary artery disease) Low TSH level Non-toxic multinodular goiter Thyroid nodule Dyslipidemia HTN (hypertension) Asthma Disc disorder Surgical History History of back surgery History of colonoscopy with polypectomy H/O arthroscopy Deficient knowledge of temporomandibular joint repair History of cervical spinal surgery History of carpal tunnel release of both wrists History of discectomy Hx of neck surgery Family History Father Hypertension CVD (cardiovascular disease) S/P triple vessel bypass COPD (chronic obstructive pulmonary disease) Mother Stroke CVD (cardiovascular disease) Hypertension Sister Cancer Brother Hypertension Cancer Maternal Aunt Cancer Social History Housing: House Alcohol intake: never Patient Tobacco Use Status: Never used Tobacco e-Cigarette/Vaping Use: Never Used Second Hand Smoke Exposure: No service: No Current occupational status: employed 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 [place] Current occupational exposures/hazards: No Cognitive needs: Yes Hearing needs: No Vision needs: Yes Review of Systems Card Denies chest pain Resp Denies chest congestion, Denies cough, Denies excessive phlegm production and Denies wheezing Aller/Immun Denies wheezing Physical Exam Vital Signs: Last Vital Signs Pulse 71 06/18/24 15:44 BP 130/86 06/18/24 15:44 Pulse Ox 98 06/18/24 15:44 Oxygen Delivery Method Room Air 06/18/24 15:44 BMI result Body Mass Index 25.3 Const General: no acute distress and alert Nutritional Appearance: not obese Orientation/consciousness: Other orientation findings ( oriented) HEENT Head: Yes atraumatic Eyes General: appearance normal, both eyes and all related structures Sclerae: sclerae normal EOM: EOMs intact bilaterally Neck Neck: Yes supple Lymphatic: no lymphadenopathy noted Resp Effort & Inspection: normal respiratory effort and no use of accessory muscles Auscultation: clear to auscultation bilaterally Cardio Rate: regular rate Rhythm: regular rhythm Heart sounds: no gallops, no murmurs and no rubs Skin General skin exam: other ( warm) Extrem General: No clubbing, No cyanosis and No edema Assessment & Plan Assessment & Plan (1) Asthma: Code(s): J45.909 - Unspecified asthma, uncomplicated Category: Medical Qualifiers: Asthma severity: moderate Asthma persistence: persistent Asthma complication type: with acute exacerbation Qualified Code(s): J45.41 - Moderate persistent asthma with (acute) exacerbation Plan: Reasonably controlled on Breo, Spiriva, and albuterol MDI. Though, with several recent exacerbations requiring prednisone courses. Patient wants to think about Tezspire therapy. (2) Environmental allergies: Code(s): Z91.09 - Other allergy status, other than to drugs and biological substances Category: Medical Plan: With recent seasonal exacerbation, now improved. If patient decides to start on Tezspire, would expect significant improvement. Coding Level of Care Code Est Pt Level 4 (21231) Diagnoses Moderate persistent asthma with acute exacerbation J45.41 Asthma severity: moderate Asthma persistence: persistent Asthma complication type: with acute exacerbation Environmental allergies Z91.09
[2024-06-18 15:44] VITALS: BP 130/86; PULSE 71; O2SAT 98; BMI 25.3
== END 2024-06-18 15:55 | disposition home or self-care (01) ==
PROVIDERS: PCP Internal Medicine; Visit Provider Internal Medicine Pulmonary Disease
DX: J45.41 Moderate persistent asthma with (acute) exacerbation (principal); Z91.09 Other allergy status, other than to drugs and biological substances
CPT/HCPCS: 99214

== ENCOUNTER → 2024-06-18 15:39 | Outpatient (BNVA) | payer BC, SELFPAY | PROVIDERS: PCP Internal Medicine; Visit Provider Internal Medicine Pulmonary Disease | DX: Z91.09 Other allergy status, other than to drugs and biological substances (principal); J45.909 Unspecified asthma, uncomplicated ==

== ENCOUNTER 2024-06-28 07:24 | Emergency (ER) | payer BC, SELFPAY ==
[2024-06-28 07:26] VITALS: BP 134/86; PULSE 75; RESP 18; TEMP 36; O2SAT 99; BMI 24.0
[2024-06-28] MEDS: Oxymetazoline HCl 0.05 % Nasal 15 ML SPRAY 2 SPRAY NOSTRIL-B (08:11)
--- NOTE | 2024-06-28 08:27 | ED.EPISTAXIS ---
History of Present Illness General Chief Complaint: Epistaxis Stated Complaint: nosebleed Time Seen by Provider: 06/28/24 07:43 Source: patient Mode of arrival: ambulatory Limitations: no limitations History of Present Illness HPI Narrative: this is a 64 years old the patient presented to the emergency department with a chief complaint of Epistaxis she does have history of nosebleed in the past she was seen in this emergency room on November 16, she also was seen at [facility] for epistaxisi Location: Yes left naris Onset/current episode: Yes hour(s) (2) Duration: Yes now resolved Context: Yes history of previous nose bleed Related Data Home Medications ?Medication ?Instructions ?Recorded ?Confirmed aspirin 81 mg tablet,delayed 81 mg PO DAILY 08/18/20 06/09/24 release (Adult Low Dose Aspirin) cyclobenzaprine 5 mg tablet 5 - 10 mg PO BEDTIME PRN 05/22/22 06/09/24 epinephrine 0.3 mg/0.3 mL IM 05/22/22 06/09/24 injection, auto-injector metoprolol succinate 50 mg 50 mg PO DAILY 06/04/23 06/09/24 tablet,extended release 24 hr valacyclovir 500 mg tablet 500 mg PO DAILY 06/04/23 06/09/24 losartan 25 mg tablet 25 mg PO DAILY 06/27/23 06/09/24 acetaminophen 325 mg tablet mg PO PRN 03/17/24 06/09/24 lidocaine 5 % topical patch 1 patch topical DAILY 03/17/24 06/09/24 loratadine 10 mg tablet (Allergy 10 mg PO DAILY allergy symptoms 03/17/24 06/09/24 Relief (loratadine)) fluticasone furoate 50 inhalation 06/09/24 06/09/24 mcg-vilanterol 25 mcg/dose inhalation powder (Breo Ellipta) Previous Rx's ?Medication ?Instructions ?Recorded omeprazole 20 mg capsule,delayed 20 mg PO DAILY PRN heartburn 90 10/15/23 release days #90 caps atorvastatin 40 mg tablet 40 mg PO DAILY #90 tabs 02/26/24 albuterol sulfate 1.25 mg/3 mL 1.25 mg (3 mL) inhalation QID PRN 03/17/24 solution for nebulization shortness of breath or wheezing #75 mL azelastine 137 mcg (0.1 %) nasal 2 spray intranasal BID 30 days #30 03/31/24 spray mL prednisone 10 mg tablet 10 mg PO DIRECTED #50 tabs 04/29/24 albuterol sulfate 90 mcg/actuation 2 inh PO Q4H PRN for wheezing 06/15/24 aerosol inhaler #20.1 grams Spiriva Respimat 1.25 2 inh PO DAILY #12 grams 06/21/24 mcg/actuation solution for inhalation (tiotropium bromide) Allergies Allergy/AdvReac Type Severity Reaction Status Date / Time amoxicillin [Amoxicillin] Allergy Unknown NAUSEA AND Verified 06/28/24 07:29 VOMITTING, nauseous doxycycline [Doxycycline] Allergy Unknown NAUSEA AND Verified 06/28/24 07:29 VOMITTING, upset stomach penicillin G Allergy Unknown Nausea Verified 06/28/24 07:29 tizanidine AdvReac Intermediate vertigo Verified 06/28/24 07:29 grass,trees,dust Allergy Unknown Unknown Uncoded 06/28/24 07:29 Principin Allergy Unknown Vomiting Uncoded 06/28/24 07:29 Review of Systems Constitutional: Constitutional: Reports no additional constitutional complaints Eyes: Eyes: Reports no additional eye complaints ENT: Reports system reviewed and no additional complaints, except as documented [facility] Past Medical History [facility] Narrative: history of epistaxis, history of CAD, hypercholesterolemia asthma Medical History SVT (supraventricular tachycardia) CAD (coronary artery disease) Low TSH level Non-toxic multinodular goiter Thyroid nodule Dyslipidemia HTN (hypertension) Asthma Disc disorder Surgical History History of back surgery History of colonoscopy with polypectomy H/O arthroscopy Deficient knowledge of temporomandibular joint repair History of cervical spinal surgery History of carpal tunnel release of both wrists History of discectomy Hx of neck surgery Family History Family History Father Hypertension CVD (cardiovascular disease) S/P triple vessel bypass COPD (chronic obstructive pulmonary disease) Mother Stroke CVD (cardiovascular disease) Hypertension Sister Cancer Brother Hypertension Cancer Maternal Aunt Cancer Social History Social History Housing: House Alcohol intake: never Patient Tobacco Use Status: Never used Tobacco e-Cigarette/Vaping Use: Never Used Second Hand Smoke Exposure: No Advance Directives: No Advance Directives Information Provided: Yes service: No Current occupational status: employed 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[place] [employer] Current occupational exposures/hazards: No Cognitive needs: Yes Hearing needs: No Vision needs: Yes Physical Exam Vital Signs: Vital Signs: Last Vital Signs Temp 96.8 F 06/28/24 09:00 Pulse 75 06/28/24 09:00 Resp 18 06/28/24 09:00 BP 134/86 06/28/24 09:00 Pulse Ox 99 06/28/24 09:00 O2 Del Method Room Air 06/28/24 09:00 BMI result Body Mass Index 24.0 looks well nontoxic Const: General: cooperative Nutritional Appearance: average body habitus Orientation/consciousness: patient oriented x3 HEENT: Other: examination of the nostril no active bleeding rhino Head: Yes normal to inspection Ears: hearing grossly normal bilaterally Face and sinus: Yes normal facial exam Neck: Neck: Yes normal visual inspection and Yes full ROM Chest: Chest palpation & inspection: normal inspection of the chest Resp: Effort & Inspection: normal respiratory effort Cardio: Jugular venous distension: no JVD Rate: regular rate Rhythm: regular rhythm GI: Inspection: Yes normal to inspection Palpation (GI): Soft to palpation Auscultation: normal bowel sounds : General: Yes no CVA tenderness Back/Spine/Pelvis: Back: no CVA tenderness Skin: General skin exam: no rashes or lesions noted, elasticity normal and turgor normal Neuro: General: patient oriented x3 Cranial nerves: Yes CN's II-XII intact bilaterally Course Reevaluation(s) Reevaluation #1: doing well at this time there is no bleeding, the patient refused any way any packing I think she can be discharged home she is comfortable with that she will use Afrin p.r.n. Time: 08:48 Medications Administered Discontinued Medications Generic Name Dose Route Start Last Admin Trade Name Freq PRN Reason Stop Dose Admin Oxymetazoline HCl 2 spray 06/28/24 07:52 06/28/24 08:11 Oxymetazoline Hcl 0.05 % Nasal 15 Ml [place] NOSTRIL-B 06/28/24 07:53 2 spray ONCE ONE Administration Medical Decision Making Medical Decision Making [facility] Narrative: patient presented with epistaxis which is now is resolved we will observe for couple of hours Differential Diagnosis Differential Diagnoses: The differential diagnosis associated with the presentation includes epistaxis/ unlikely thrombocytopenia or coagulopathy she had blood work in the past normal platelets normal coags Admission/Observation Consideration of admission/observation: Escalation of care including admission/observation considered Discharge Plan Discharge Clinical Impression: Epistaxis Patient Disposition: Home, Self-Care Instructions: Nosebleed (ED) Additional Instructions: follow-up with ear nose and throat doctor, we discussed with you possiblePacking you declined the packing return to the emergency room if you are worse any concern Prescriptions: No Action omeprazole 20 mg capsule,delayed release(DR/EC) 20 mg PO DAILY PRN (Reason: heartburn) 90 Days Qty: 90 1RF atorvastatin 40 mg tablet 40 mg PO DAILY Qty: 90 2RF azelastine 137 mcg (0.1 %) spray,non-aerosol 2 spray intranasal BID 30 Days Qty: 30 6RF Rx Instructions: administer into each nostril prednisone 10 mg tablet 10 mg PO DIRECTED Qty: 50 0RF Rx Instructions: Take 4 pills daily for 5 days, then go down by 1 pill every 5 days albuterol sulfate 90 mcg/actuation HFA aerosol inhaler 2 inh PO Q4H PRN (Reason: for wheezing) Qty: 20.1 0RF Spiriva Respimat 1.25 mcg/actuation mist 2 inh PO DAILY Qty: 12 0RF lidocaine 5 % adhesive patch,medicated 1 patch topical DAILY metoprolol succinate 50 mg tablet extended release 24 hr 50 mg PO DAILY valacyclovir 500 mg tablet 500 mg PO DAILY loratadine [Allergy Relief (loratadine)] 10 mg tablet 10 mg PO DAILY albuterol sulfate 1.25 mg/3 mL solution for nebulization 1.25 mg inhalation QID PRN (Reason: shortness of breath or wheezing) Qty: 75 0RF aspirin [Adult Low Dose Aspirin] 81 mg tablet,delayed release (DR/EC) 81 mg PO DAILY epinephrine 0.3 mg/0.3 mL auto-injector IM cyclobenzaprine 5 mg tablet 5 - 10 mg PO BEDTIME PRN acetaminophen 325 mg tablet PO PRN losartan 25 mg tablet 25 mg PO DAILY Breo Ellipta 50-25 mcg/dose blister with device inhalation Referrals: Dayne Villegas [Physician] - 2 days Stand Alone Forms: Work/School Release Interventions: ED Discharge Assessment Last Done: 06/28/24 09:00 Discharge Date/Time: 06/28/24 09:01 Print Language: Czech
[2024-06-28 09:00] VITALS: BP 134/86; PULSE 75; RESP 18; TEMP 36; O2SAT 99
--- NOTE | 2024-06-28 09:00 | PC.NURSE ---
pt discharged w nose clamp w instructions to return if bleeding doesn't stop.
== END 2024-06-28 09:01 | disposition home or self-care (01) ==
PROVIDERS: Emergency Provider Emergency Medicine; PCP Internal Medicine
DX: R04.0 Epistaxis (principal); I10 Essential (primary) hypertension; E78.5 Hyperlipidemia, unspecified
CPT/HCPCS: 99282; 99283

== ENCOUNTER → 2024-07-05 03:36 | Outpatient (BNV) | payer BC, SELFPAY | PROVIDERS: Emergency Provider Internal Medicine; PCP Internal Medicine; Visit Provider Internal Medicine Cardiovascular Disease | DX: R07.9 Chest pain, unspecified (principal); R94.31 Abnormal electrocardiogram [ECG] [EKG] | CPT/HCPCS: 93010 ==

== ENCOUNTER 2024-07-05 03:39 | Emergency (ER) | payer BC, SELFPAY ==
--- NOTE | 2024-07-05 | ECG_ITS ---
Test Reason : cp Blood Pressure : / mmHG Vent. Rate : 073 BPM Atrial Rate : 073 BPM P-R Int : 158 ms QRS Dur : 082 ms QT Int : 388 ms P-R-T Axes : 047 014 009 degrees QTc Int : 427 ms Normal sinus rhythm ST & T wave abnormality, consider anterior ischemia Abnormal ECG When compared with ECG of 06-NOV-2021 14:00, No significant change was found Referred By: Generic ED Physician Electronically Signed By:MAGGIE JACOBO MD
--- NOTE | ~2024-07-05 | XR_ITS ---
EXAMINATION: XR CHEST CLINICAL INFORMATION: cp COMPARISON: March 17, 2024 TECHNIQUE: Frontal view of the chest was obtained. FINDINGS: No significant abnormality is noted involving the heart, lungs, mediastinum, bony thorax or soft tissues. XR/XR chest 1V IMPRESSION: Unremarkable examination. Electronically signed by: Baljeet Diaz MD 07/05/2024 05:06 AM [facility] [place]
[2024-07-05 03:50] VITALS: BP 167/99; PULSE 74; RESP 16; TEMP 36; O2SAT 99; BMI 24.6
--- NOTE | 2024-07-05 04:05 | ED_ITS ---
HPI - Chest Pain General Chief Complaint: Chest Pain Stated Complaint: chest pain Time Seen by Provider: 07/05/24 04:05 History of Present Illness ED Provider: HPI narrative: Patient is 64 years old with history of single-vessel coronary artery disease 99% apical LAD not bypassable or angioplasty , SVT-AVNRT status post ablation in 2019, hyperlipidemia, comes here for left-sided chest pain dizziness shortness of breath all day yesterday went to bed at 2300 woke up and checked her blood pressure was on the 170/110 took nitro felt better now on arrival patient's blood pressure is 167/99 EKG without any ischemic changes Related Data Home Medications ?Medication ?Instructions ?Recorded ?Confirmed aspirin 81 mg tablet,delayed 81 mg PO DAILY 08/18/20 06/09/24 release (Adult Low Dose Aspirin) cyclobenzaprine 5 mg tablet 5 - 10 mg PO BEDTIME PRN 05/22/22 06/09/24 epinephrine 0.3 mg/0.3 mL IM 05/22/22 06/09/24 injection, auto-injector metoprolol succinate 50 mg 50 mg PO DAILY 06/04/23 06/09/24 tablet,extended release 24 hr valacyclovir 500 mg tablet 500 mg PO DAILY 06/04/23 06/09/24 losartan 25 mg tablet 25 mg PO DAILY 06/27/23 06/09/24 acetaminophen 325 mg tablet mg PO PRN 03/17/24 06/09/24 lidocaine 5 % topical patch 1 patch topical DAILY 03/17/24 06/09/24 loratadine 10 mg tablet (Allergy 10 mg PO DAILY allergy symptoms 03/17/24 06/09/24 Relief (loratadine)) fluticasone furoate 50 inhalation 06/09/24 06/09/24 mcg-vilanterol 25 mcg/dose inhalation powder (Breo Ellipta) Previous Rx's ?Medication ?Instructions ?Recorded omeprazole 20 mg capsule,delayed 20 mg PO DAILY PRN heartburn 90 10/15/23 release days #90 caps atorvastatin 40 mg tablet 40 mg PO DAILY #90 tabs 02/26/24 albuterol sulfate 1.25 mg/3 mL 1.25 mg (3 mL) inhalation QID PRN 03/17/24 solution for nebulization shortness of breath or wheezing #75 mL azelastine 137 mcg (0.1 %) nasal 2 spray intranasal BID 30 days #30 03/31/24 spray mL prednisone 10 mg tablet 10 mg PO DIRECTED #50 tabs 04/29/24 albuterol sulfate 90 mcg/actuation 2 inh PO Q4H PRN for wheezing 06/15/24 aerosol inhaler #20.1 grams Spiriva Respimat 1.25 2 inh PO DAILY #12 grams 06/21/24 mcg/actuation solution for inhalation (tiotropium bromide) Allergies Allergy/AdvReac Type Severity Reaction Status Date / Time amoxicillin [Amoxicillin] Allergy Unknown NAUSEA AND Verified 07/05/24 03:52 VOMITTING, nauseous doxycycline [Doxycycline] Allergy Unknown NAUSEA AND Verified 07/05/24 03:52 VOMITTING, upset stomach penicillin G Allergy Unknown Nausea Verified 07/05/24 03:52 tizanidine AdvReac Intermediate vertigo Verified 07/05/24 03:52 grass,trees,dust Allergy Unknown Unknown Uncoded 07/05/24 03:52 Principin Allergy Unknown Vomiting Uncoded 07/05/24 03:52 Review of Systems 2 Review of Systems: Yes all other systems are reviewed and are negative [facility] Past Medical History Medical History SVT (supraventricular tachycardia) CAD (coronary artery disease) Low TSH level Non-toxic multinodular goiter Thyroid nodule Dyslipidemia HTN (hypertension) Asthma Disc disorder Surgical History History of back surgery History of colonoscopy with polypectomy H/O arthroscopy Deficient knowledge of temporomandibular joint repair History of cervical spinal surgery History of carpal tunnel release of both wrists History of discectomy Hx of neck surgery Family History Family History Father Hypertension CVD (cardiovascular disease) S/P triple vessel bypass COPD (chronic obstructive pulmonary disease) Mother Stroke CVD (cardiovascular disease) Hypertension Sister Cancer Brother Hypertension Cancer Maternal Aunt Cancer Social History Social History Housing: House Alcohol intake: never Patient Tobacco Use Status: Never used Tobacco Smoked in Last 30 Days: No e-Cigarette/Vaping Use: Never Used Second Hand Smoke Exposure: No Use of substances other than those prescribed or required for medical reasons: No Advance Directives: No Advance Directives Information Provided: Yes Do you have a plan to hurt others: No Plan Patient : No service: No Current occupational status: employed 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 Oriented X3. No acute distress. Eyes: PERRLA, No Nystagmus ENT: Pharynx normal. Oral Mucosa moist Neck: Normal inspection. Neck supple. CVS: Normal heart rate and rhythm. Pulses normal. Respiratory: No respiratory distress. Equal air entry bilateral, no wheezing/rales/rhonchi Abdomen: Soft and nontender. Bowel sounds are present, no mass palpable, no CVA tenderness Skin: Skin warm and dry. Normal skin color. Normal skin turgor. Extremities: No lower extremity edema. No calf tenderness Neuro: Oriented X 3. No motor deficit. No sensory deficit.No cerebellar signs , cranial nerves II-XII intact Medications Administered Discontinued Medications Generic Name Dose Route Start Last Admin Trade Name Freq PRN Reason Stop Dose Admin Nitroglycerin 1 inch 07/05/24 04:16 07/05/24 04:47 Nitroglycerin 2 % Oint 1 Gm Packet TRANSDERMA 07/05/24 04:17 1 inch ONCE ONE Administration Medical Decision Making Medical Decision Making [facility] Narrative: Patient with known coronary artery disease comes with a chest pain with elevated blood pressure 2 sets of cardiac enzymes are negative blood pressure improved after nitro paste will advised patient to increase the dose of losartan to 50 mg daily patient advised to follow with paper products machine operator Differential Diagnosis Differential Diagnoses: The differential diagnosis associated with the presentation includes ACS/PE/CHF Admission/Observation Consideration of admission/observation: Escalation of care including admission/observation considered Lab Data [facility] Lab Attestation statement: I reviewed the patient's lab results. 07/05/24 04:10 07/05/24 04:10 Labs: Lab Results 07/05/24 07/05/24 07/05/24 Range/Units 04:10 04:18 04:25 WBC 5.6 (4.8-10.8) X10*3/uL RBC 4.09 L (4.20-5.50) X10*6/uL Hgb 12.7 (12.0-16.0) g/dl Hct 37.8 (37.0-47.0) % MCV 92.4 (80.0-98.0) fL MCH 31.1 (27.0-33.0) pg MCHC 33.6 (31.0-35.0) g/dl RDW 12.9 (11.0-16.0) % Plt Count 157 L (160-400) X10*3/uL MPV 12.4 H (9.4-12.3) fL Immature Gran % (Auto) 0.4 (0.0-0.4) % Neut % (Auto) 53.0 (45-73) % Lymph % (Auto) 32.4 (20-40) % Bowman % (Auto) 6.8 (2-11) % Eos % (Auto) 6.3 H (0-4) % Baso % (Auto) 1.1 (0-2) % Lymph # (Auto) 1.8 (1.2-4.9) X10*3/uL Bowman # (Auto) 0.4 (0.1-1.2) X10*3/uL Eos # (Auto) 0.4 (0.0-0.4) X10*3/uL Baso # (Auto) 0.1 (0.0-0.2) X10*3/uL Abs Immat Gran (auto) 0.02 (0.00-0.03) X10*3/uL Absolute Neuts (auto) 3.0 (2.0-8.3) x10*3/uL Absolute Nucleated RBC 0.000 (0.0-0.012) X10*3/uL Nucleated RBC % (auto) 0.0 (0.0-0.2) /100WBC PT 10.5 L (10.9-12.4) SEC INR 0.9 (0.9-1.1) APTT 36.2 (26.0-36.8) SEC D-Dimer High Sensitivty < 150 NG/ML Sodium 141 (135-145) mmol/L Potassium 4.0 (3.3-5.1) mmol/L Chloride 108 (96-108) mmol/L Carbon Dioxide 24 (22-29) mmol/L Anion Gap 13 (12-20) BUN 14 (9-16) mg/dL Creatinine 0.89 (0.5-1.4) mg/dL Estim Creat Clear Calc 56.5 Estimated GFR > 60 Random Glucose 103 (60-115) mg/dL Calcium 9.7 (8.4-10.2) mg/dL Magnesium 2.0 (1.6-2.6) mg/dL Total Bilirubin 0.6 (0.0-1.0) mg/dL AST 26 (5-31) U/L ALT 15 (0-31) U/L Alkaline Phosphatase 65 (39-117) U/L Troponin I High Sens < 2.7 (<3.5-17.0) ng/L B-Natriuretic Peptide 72 (<100) pg/mL Total Protein 6.5 (6.5-8.0) g/dL Albumin 4.1 (3.5-5.0) g/dL Hold Red Top See Note Influenza Type A (PCR) NEGATIVE (Negative) Influenza Type B (PCR) NEGATIVE (Negative) RSV RNA Qual (PCR) NEGATIVE (Negative) SARS-CoV-2 RNA (RT-PCR) NEGATIVE (Negative) 07/05/24 Range/Units 05:53 WBC (4.8-10.8) X10*3/uL RBC (4.20-5.50) X10*6/uL Hgb (12.0-16.0) g/dl Hct (37.0-47.0) % MCV (80.0-98.0) fL MCH (27.0-33.0) pg MCHC (31.0-35.0) g/dl RDW (11.0-16.0) % Plt Count (160-400) X10*3/uL MPV (9.4-12.3) fL Immature Gran % (Auto) (0.0-0.4) % Neut % (Auto) (45-73) % Lymph % (Auto) (20-40) % Bowman % (Auto) (2-11) % Eos % (Auto) (0-4) % Baso % (Auto) (0-2) % Lymph # (Auto) (1.2-4.9) X10*3/uL Bowman # (Auto) (0.1-1.2) X10*3/uL Eos # (Auto) (0.0-0.4) X10*3/uL Baso # (Auto) (0.0-0.2) X10*3/uL Abs Immat Gran (auto) (0.00-0.03) X10*3/uL Absolute Neuts (auto) (2.0-8.3) x10*3/uL Absolute Nucleated RBC (0.0-0.012) X10*3/uL Nucleated RBC % (auto) (0.0-0.2) /100WBC PT (10.9-12.4) SEC INR (0.9-1.1) APTT (26.0-36.8) SEC D-Dimer High Sensitivty NG/ML Sodium (135-145) mmol/L Potassium (3.3-5.1) mmol/L Chloride (96-108) mmol/L Carbon Dioxide (22-29) mmol/L Anion Gap (12-20) BUN (9-16) mg/dL Creatinine (0.5-1.4) mg/dL Estim Creat Clear Calc Estimated GFR Random Glucose (60-115) mg/dL Calcium (8.4-10.2) mg/dL Magnesium (1.6-2.6) mg/dL Total Bilirubin (0.0-1.0) mg/dL AST (5-31) U/L ALT (0-31) U/L Alkaline Phosphatase (39-117) U/L Troponin I High Sens < 2.7 (<3.5-17.0) ng/L B-Natriuretic Peptide (<100) pg/mL Total Protein (6.5-8.0) g/dL Albumin (3.5-5.0) g/dL Hold Red Top Influenza Type A (PCR) (Negative) Influenza Type B (PCR) (Negative) RSV RNA Qual (PCR) (Negative) SARS-CoV-2 RNA (RT-PCR) (Negative) Independent Interpretation I performed an independent interpretation of an: EKG Interpretation: Normal sinus rhythm heart rate 73 beats per minute normal interval poor progression of R-waves in anterior leads no acute ST elevation no acute ischemia no significant change from previous EKG Critical Care Time Critical Care Time Critical Care Time: Yes Total Critical Care Time: 55 Attestation: The patient was critically ill with a high probability of imminent or life threatening deterioration. I spent greater than 60???minutes of discontinuous time evaluating the patient,delivering critical care at the bedside, discussing and evaluating pertinent data with consultants. Critical care time does not include time spent performing separately billable procedures or teaching. Total time spent performing critical care was 55???minutes. Discharge Plan Discharge Clinical Impression: Chest pain, Hypertension Patient Disposition: Home, Self-Care Instructions: Chest Pain (ED), Chronic Hypertension (ED) Additional Instructions: Continue take your medications and follow with your PCP At this time days no evidence of significant cardiac injury Increase your losartan dosage to 50 mg daily Check blood pressure daily in the morning before taking the medication should be less than 135/85 Follow with your paper products machine operator Prescriptions: No Action omeprazole 20 mg capsule,delayed release(DR/EC) 20 mg PO DAILY PRN (Reason: heartburn) 90 Days Qty: 90 1RF atorvastatin 40 mg tablet 40 mg PO DAILY Qty: 90 2RF azelastine 137 mcg (0.1 %) spray,non-aerosol 2 spray intranasal BID 30 Days Qty: 30 6RF Rx Instructions: administer into each nostril prednisone 10 mg tablet 10 mg PO DIRECTED Qty: 50 0RF Rx Instructions: Take 4 pills daily for 5 days, then go down by 1 pill every 5 days albuterol sulfate 90 mcg/actuation HFA aerosol inhaler 2 inh PO Q4H PRN (Reason: for wheezing) Qty: 20.1 0RF Spiriva Respimat 1.25 mcg/actuation mist 2 inh PO DAILY Qty: 12 0RF lidocaine 5 % adhesive patch,medicated 1 patch topical DAILY metoprolol succinate 50 mg tablet extended release 24 hr 50 mg PO DAILY valacyclovir 500 mg tablet 500 mg PO DAILY loratadine [Allergy Relief (loratadine)] 10 mg tablet 10 mg PO DAILY albuterol sulfate 1.25 mg/3 mL solution for nebulization 1.25 mg inhalation QID PRN (Reason: shortness of breath or wheezing) Qty: 75 0RF aspirin [Adult Low Dose Aspirin] 81 mg tablet,delayed release (DR/EC) 81 mg PO DAILY epinephrine 0.3 mg/0.3 mL auto-injector IM cyclobenzaprine 5 mg tablet 5 - 10 mg PO BEDTIME PRN acetaminophen 325 mg tablet PO PRN losartan 25 mg tablet 25 mg PO DAILY Breo Ellipta 50-25 mcg/dose blister with device inhalation Print Language: Kinyarwanda
[2024-07-05 04:15] LABS: Basophils Absolute Auto 0.1 X10*3/uL (0.0-0.2); Basophils Percent Auto 1.1 % (0-2); Eosinophils Absolute Auto 0.4 X10*3/uL (0.0-0.4); Eosinophils Percent Auto 6.3 % (0-4); Hematocrit 37.8 % (37.0-47.0); Hemoglobin 12.7 g/dl (12.0-16.0); Imm Gran Abs Auto 0.02 X10*3/uL (0.00-0.03); Imm Gran Pct Auto 0.4 % (0.0-0.4); Lymphocytes Absolute Auto 1.8 X10*3/uL (1.2-4.9); Lymphocytes Percent Auto 32.4 % (20-40); MANUAL DIFF FLAG NO; Mean Corpuscular HGB Conc 33.6 g/dl (31.0-35.0); Mean Corpuscular Hemoglobin 31.1 pg (27.0-33.0); Mean Corpuscular Volume 92.4 fL (80.0-98.0); Mean Platelet Volume 12.4 fL (9.4-12.3); Monocytes Absolute Auto 0.4 X10*3/uL (0.1-1.2); Monocytes Percent Auto 6.8 % (2-11); Platelet Count 157 X10*3/uL (160-400); Red Blood Count 4.09 X10*6/uL (4.20-5.50); Red Cell Distribution Width 12.9 % (11.0-16.0); White Blood Count 5.6 X10*3/uL (4.8-10.8)
[2024-07-05 04:30] LABS: Albumin Level 4.1 g/dL (3.5-5.0); Anion Gap 13 (12-20); Aspartate Amino Transferase 26 U/L (5-31); Bilirubin Total 0.6 mg/dL (0.0-1.0); Blood Urea Nitrogen 14 mg/dL (9-16); Calcium 9.7 mg/dL (8.4-10.2); Carbon Dioxide 24 mmol/L (22-29); Chloride 108 mmol/L (96-108); Creatinine Clr Calc Pharmacy 56.5; Estimated Glomerular Filt Rate > 60; Glucose Random 103 mg/dL (60-115); Sodium 141 mmol/L (135-145); Total Protein 6.5 g/dL (6.5-8.0)
[2024-07-05 04:37] LABS: Troponin-I High Sensitivity < 2.7 ng/L (<3.5-17.0)
[2024-07-05 04:44] LABS: B Type Natriuretic Peptide 72 pg/mL (<100)
[2024-07-05 04:45] LABS: Alanine Aminotransferase 15 U/L (0-31); Alkaline Phosphatase 65 U/L (39-117)
[2024-07-05 04:45] LABS: INTERNATIONAL NORM RATIO 0.9 (0.9-1.1); Prothrombin Time 10.5 SEC (10.9-12.4)
[2024-07-05] MEDS: Nitroglycerin 2 % Oint 1 GM Packet 1 INCH TRANSDERMA (04:47)
[2024-07-05 04:48] LABS: Partial Thromboplastin Time 36.2 SEC (26.0-36.8)
[2024-07-05 04:51] LABS: Influenza A PCR NEGATIVE (Negative); Influenza B PCR NEGATIVE (Negative); Resp Syncy Virus RNA Qual PCR NEGATIVE (Negative); SARS COV2 PCR INHOUSE NEGATIVE (Negative)
[2024-07-05 04:53] LABS: D Dimer High Sensitivity < 150 NG/ML
[2024-07-05 05:37] VITALS: BP 144/68; PULSE 63; RESP 16; O2SAT 98
[2024-07-05 06:26] LABS: Troponin-I High Sensitivity < 2.7 ng/L (<3.5-17.0)
[2024-07-05 06:49] VITALS: BP 152/95; PULSE 67; RESP 16; TEMP 36.6; O2SAT 98
[2024-07-05] MEDS: Losartan Potassium 50 MG TABLET PO (06:59)
[2024-07-05 07:02] VITALS: BP 152/95; PULSE 67; RESP 16; TEMP 36.6; O2SAT 98
== END 2024-07-05 07:02 | disposition home or self-care (01) ==
PROVIDERS: Emergency Provider Internal Medicine; PCP Internal Medicine
DX: R07.89 Other chest pain (principal); I25.10 Atherosclerotic heart disease of native coronary artery without angina pectoris; I10 Essential (primary) hypertension; R06.02 Shortness of breath; Z79.899 Other long term (current) drug therapy; Z03.818 Encounter for observation for suspected exposure to other biological agents ruled out
CPT/HCPCS: 0241U; 36415; 71045; 80053; 83735; 83880; 84484; 85025; 85379; 85610; 85730; 93005; 99283; 99284

== ENCOUNTER 2024-08-10 16:18 | Outpatient (REF) | payer BC, SELFPAY | END 2024-08-10 16:19 | disposition home or self-care (01) | LOC: HO.MAMMO 16:18 | PROVIDERS: PCP Internal Medicine; Visit Provider Internal Medicine | DX: Z12.31 Encounter for screening mammogram for malignant neoplasm of breast (principal) | CPT/HCPCS: 77063; 77067 ==

== ENCOUNTER 2024-11-12 08:27 | Outpatient (REF) | payer BC, SELFPAY ==
--- OUTSIDE RECORDS SUMMARY | 2024-11-12 08:49 | XMS_ITS | Clinical Summary ---
Author Organization [facility] Address [address] [place] [address] Care Team Providers Care Field Superintendent Name Role Phone Karen Gonzalez MD Primary Care Provid er Allergies Active Allergy Reactions Criticality Noted Date Comments Amoxicillin 02/02/2015 Doxycycline 02/02/2015 Ampicillin 02/02/2015 Medications Medication Sig Dispensed Refills Start Date End Date Status albuterol (PROVENTIL) (2.5 MG/3ML) 0.083% nebulizer solutionIndications:B ronchospasm 0 02/02/2015 Active ADVAIR DISKUS 500-50 MCG/DOSE DISKUSIndications:Ast hma 0 12/29/2014 Active atorvastatin (LIPITOR) 40 MG tabletIndications:Hyp erlipidemia 0 12/08/2014 Active albuterol (PROVENTIL HFA;VENTOLIN HFA) 108 (90 Base) MCG/ACT inhalerIndications:As thma Inhale 2 puffs into the lungs every 6 (six) hours as needed for wheezing. 0 Active aspirin 81 MG chewable tabletIndications:Sta ble Angina Pectoris Chew 81 mg by mouth daily. 0 Active sodium chloride (OCEAN) 0.65 % nasal sprayIndications:dm spray or apply 1 spray inside Nose as needed for congestion. 0 Active vitamin D3 (VITAMIN D3) 10 MCG (400 UNIT) tabletIndications:Vit owusu D Deficiency Take 400 Units by mouth daily. 0 Active Cetirizine HCl (ZyrTEC ALLERGY) 10 MG CAPSIndications:Aller gic Upper Respiratory Tract Disorder Take by mouth. 0 Active Vtkt-Fhyifxwsz-Imu-Me thyl Randall (1ST MEDX-PATCH/ LIDOCAINE) 4-0.025-5-20 % PTCHIndications:dm Apply topically. 0 Active acetaminophen (TYLENOL) 325 MG tabletIndications:Garima n Take 3 tablets (975 mg total) by mouth every 8 (eight) hours. 30 tablet 0 10/12/2019 Active senna-docusate (PERICOLACE) 8.6-50 MGIndications:Constip ation Take 1 tablet by mouth 2 (two) times a day. 30 tablet 0 10/12/2019 Active methocarbamol (ROBAXIN) 750 MG tabletIndications:Mus culoskeletal Pain Take 1 tablet (750 mg total) by mouth every 6 (six) hours as needed. 45 tablet 0 10/12/2019 Active tiotropium (SPIRIVA) 18 MCG inhalation capsuleIndications:Ch ronic Bronchitis Place 18 mcg into inhaler and inhale daily. 0 Active Active Problems Problem Noted Date Diagnosed Date Chest pain 10/13/2020 S/P cervical spinal fusion 12/28/2019 Social History Tobacco Use Types Packs/Day Years Used Date Smoking Tobacco: Never Smokeless Tobacco: Never Alcohol Use Standard Drinks/Week Comments No 0 (1 standard drink = 0.6 oz pur e alcohol) Sex and Gender Information Value Date Recorded Sex Assigned at Female 10/04/2019 12:14 PM EDT Gender Identity Not on file Sexual Orientation Not on file Job Start Date Occupation Industry Not on file Not on file Not on file Last Filed Vital Signs Vital Sign Reading Time Taken Comments Blood Pressure 128/77 10/14/2020 9:22 AM EDT Pulse 77 10/14/2020 9:22 AM EDT Temperature 36.3 ??C (97.4 ??F) 10/14/2020 9:22 AM ED T Respiratory Rate 16 10/14/2020 9:22 AM EDT Oxygen Saturation 99% 10/14/2020 9:22 AM EDT Inhaled Oxygen Concentration - - Weight 61 kg (134 lb 6.4 oz) 10/14/2020 12:00 AM EDT Height 162.6 cm (5' 4 ) 10/14/2020 12:00 AM EDT Body Mass Index 23.07 10/14/2020 12:00 AM EDT Plan of Treatment Health Maintenance Due Date Last Done Comments Hepatitis C Screening 1962 COVID-19 Vaccine (#1) 1962 Depression Screening 1974 Preventative Health Evaluation 1980 DTap / Tdap / Td (1 - Tdap) 1981 Cervical Cancer Screening (P ap Smear) 1983 Colon Cancer Screening (Colonoscopy) 2007 Breast Cancer Screening (Mammogram) 2012 Shingrix-Zoster Vaccine (1 of 2) 2012 Influenza Vaccine (#1) 2024 RSV Adult > 60+ Yrs or Pregn ant (1 - 1-dose 75+ series) 2037 Hepatitis B Vaccines Aged Out No long er eligible based on patient's age to complete this topic Pneumococcal Vaccine Aged Out No long er eligible based on patient's age to complete this topic RSV Ped < 20 months Aged Out No longe r eligible based on patient's age to complete this topic Medical Devices Implanted Type Area Tank Assembler Device Identifier Shelf Expiration Date Model / Serial / Lot Sponge Surgiflo 8ml Hemostatic Matrix Absorbable Latex Free - [id number] - [id number] Implanted:Qty: 1 on 10/11/2019 by Yobani Qu[place]ros [place] [facility] Hemostatic Agent [employer] 12/25/2020 [id number] / / [id number] Graft Cornerstone Asr Lordotic [id number] Cancellous Cortical - [id number] - [id number] Implanted:Qty: 1 on 10/11/2019 by Yobani Quiros [place] [facility] [employer] 05/04/2022 [id number] / [id number] / [id number] Graft Cornerstone Asr [id number] Spacer Lordotic Cancellous - [id number] - [id number] Implanted:Qty: 1 on 10/11/2019 by Yobani Quiros [place] [facility] [employer] 06/22/2022 [id number] / [id number] / [id number] Screw [place] Acp Self Drill 4.0x14mm Variable - [id number] - [id number] Implanted:Qty: 6 on 10/11/2019 by Yobani Quiros [place] [facility] [employer] [id number] / / Plate Tri-Lobe Cam Loc [place] Prelordotic 35.8x16x2.5mm 28 - [id number] - [id number] Implanted:Qty: 1 on 10/11/2019 by Yobani Quiros [place] [facility] [employer] [id number] / / Advance Directives For more information, please contact: [phone] Latest Code Status on File Code Status Date Activated Date Inactivated Comments Full Code 10/13/2020 5:34 PM 10/14/2020 8:05 PM This code status was ascertained in the following way: discussion with patient . Code Status History Code Status Date Activated Date Inactivated Comments Full Code 10/11/2019 10:23 AM 10/12/2019 9:19 PM This code status was ascertained in the following way: per living will or healthcare instructions . Care Teams Field Superintendent Relationship Specialty Start Date End Date Karen Gonzalez MD [address] [place] [address] , [address] Physician Associ D/B/A: [facility] [place] Sneed [id number] PCP - General Internal Medicine 07/23/19
--- OUTSIDE RECORDS SUMMARY | 2024-11-12 08:49 | XMS_ITS | Clinical Summary ---
Author Organization [address] [facility] Address [address] [place] [address] Phone Care Team Providers Care Site Worker Name Role Phone Karen Delong MD Primary Care Provider [phone] Allergies Active Allergy Reactions Criticality Noted Date Comments Amoxicillin Nausea And Vomiting Medium 06/08/2024 Doxycycline Nausea And Vomiting Medium 06/08/2024 Ampicillin Nausea And Vomiting 06/08/2024 Medications fluticasone furoate-vilanter oL 50-25 mcg/dose blister with device Inhale into the lungs daily. - Inhalation Active nitroglycerin (NITROSTAT) 0.[address] 1 tablet (0.4 mg total) under the tongue every 5 (five) minutes if needed for chest pain. Active atorvastatin (LIPITOR) 40 mg tablet Take 1 tablet (40 mg total) by mouth at bedtime. Active TIOTROPIUM BROMIDE INHL Inhale into the lungs. - Inhalation Active azelastine HCl (AZELASTINE NASL) Administer into affected nostril(s). Active albuterol HFA (PROVENTIL HFA;VENTOLIN HFA) 108 (90 Base) MCG/ACT inhaler Inhale 2 puffs by mouth every 4 (four) hours if needed. Active loratadine (CLARITIN) 10 mg tablet Take 1 tablet (10 mg total) by mouth 1 (one) time each day. Active aspirin 81 mg EC tablet Take 1 tablet (81 mg total) by mouth 1 (one) time each day. Active cholecalciferol (VITAMIN D-3) 25 mcg (1,000 unit) tablet Take 1 tablet (1,000 Units total) by mouth 1 (one) time each day. Active lidocaine (LIDODERM) 5 % patch Place 1 Patch onto the skin every 24 hours. Apply for no more than 12 hours in any 24 hour period. - Transdermal Active acetaminophen (TYLENOL) 650 mg suppository Take 650 mg by mouth every 8 hours as needed. - Oral Active metoprolol succinate (TOPROL-XL) 50 mg 24 hr tablet TAKE 1 TABLET DAILY 90 tablet 3 4 Active losartan (COZAAR) 25 mg tabletIndication s:Essential hypertension Take 1 tablet (25 mg total) by mouth 2 (two) times a day. 180 tablet 2 5 Active Active Problems Problem Noted Date Diagnosed Date Dizziness 11/08/2024 Assessment & Plan (11/08/2024 10:37 AM EDT): The patient's dizziness appears to be vertiginous in nature; she reports a history of allergies which may leading to eustachian tube dysfunction and contributing to her dizziness. She will be starting loratadine in the very near future as prescribed by another provider and I encouraged her to follow-up with her PCP further regarding this. Dyspnea on exertion 11/08/2024 Assessment & Plan (11/08/2024 10:37 AM EDT): Dyspnea on exertion is at baseline secondary to her asthma. She is aware to return to care for further evaluation should this worsen, seeking urgent medical attention as appropriate. Palpitations 07/13/2024 Assessment & Plan (11/08/2024 10:37 AM EDT): Previous 48-hour Holter monitor in July 2024 did not show any underlying arrhythmias that correlated with her symptoms of palpitations, lightheadedness/dizziness, and chest pain. We discussed this at length today and she states that she does not feel like her typical symptoms were present at the time she wore the Holter. We discussed evaluation of this further with a 30-day monitor; she prefers to defer this at this time as she is not sure she would tolerate this length of a monitor. Should she change her mind, she will notify our office. She verbalizes understanding of the need to seek urgent medical attention for any palpitations that do not resolve in the usual manner, especially if accompanied by symptoms such as shortness of breath, chest pain, lightheadedness or dizziness, and syncope or presyncope. We will check a TSH today as she reports a history of a thyroid nodule and has not had her thyroid function checked recently. Orders: Thyroid stimulating hormone with reflex to free t4 and free t3; Future Assessment & Plan (07/13/2024 10:02 PM EST): We will evaluate the patient's palpitations further with a 48-hour Holter monitor as she currently declines any longer monitoring timeframe; she is aware that if her usual symptoms do not occur during this monitoring period, a longer timeframe may be necessary in order to evaluate this completely. She has a history of AVNRT status post a ablation in 2019. We discussed the biggest concern is for possible paroxysmal atrial fibrillation secondary to untreated CHRISTOPHER as discussed above; we discussed the potential for a cardioembolic event and subsequent need for systemic anticoagulation should this be the case. She verbalizes understanding of this; we will continue to readdress this as indicated. Orders: Cardiac holter monitor (<= 48 hours); Future Status post cardiac catheterization 07/13/2024 Assessment & Plan (11/08/2024 10:37 AM EDT): Assessment & Plan (07/13/2024 10:02 PM EST): Coronary artery disease invo lving pamunkey heart without angina pectoris 06/08/2024 Assessment & Plan (11/08/2024 10:37 AM EDT): The patient has a history of a 99% lesion at the apex of the LAD noted on cardiac catheterization in 2013 was subsequently managed medically. Regadenoson nuclear stress test completed 09/30/2023 revealed 2 small and mild reversible perfusion defects that led to a second cardiac catheterization on 11/21/2023 which revealed only minimal luminal irregularities in the LMCA, LAD, left circumflex, and RCA. Her stress test was subsequently considered to be a false positive. Discussed above, she is able to exert herself well without any chest pain or shortness of breath. Her hypertension may very well be playing a role in her chest discomfort; I have strongly urged her to take losartan 25 mg twice daily, checking her blood pressures once daily 1 to 2 hours after her medication is taken. I have requested that she record these readings for 2 weeks and then notify our office at which time we can readdress the need for further adjustments to her antihypertensives. We may consider adding amlodipine as an antianginal in the future if blood pressures remain elevated. We will continue cardioprotective medical therapies including metoprolol atorvastatin, and daily ASA. The patient was advised to seek emergent medical attention by calling 911 if they were to develop severe dyspnea, chest pain that did not resolve with rest or nitroglycerin, or if they were to faint. Orders: Lipid panel with reflex to direct LDL; Future Assessment & Plan (07/13/2024 10:02 PM EST): The patient has a history of a 99% lesion at the apex of the LAD noted on cardiac catheterization in 2013 was subsequently managed medically. Regadenoson nuclear stress test completed 09/30/2023 revealed 2 small and mild reversible perfusion defects that led to a second cardiac catheterization on 11/21/2023 which revealed only minimal luminal irregularities in the LMCA, LAD, left circumflex, and RCA. Her stress test was subsequently considered to be a false positive. She is able to exert herself well without any chest pain or shortness of breath; her recent episodes of chest pain only occur at night and with high blood pressures as discussed above. We will continue to address her blood pressures in hopes of decreasing episodes of chest pain; we may consider adding amlodipine as an antianginal in the future if blood pressures remain elevated, but at this time the patient prefers to titrate losartan first. We will continue cardioprotective medical therapies including metoprolol atorvastatin, and daily ASA. The patient was advised to seek emergent medical attention by calling 911 if they were to develop severe dyspnea, chest pain that did not resolve with rest or nitroglycerin, or if they were to faint. Mixed hyperlipidemia 06/08/2024 Assessment & Plan (11/08/2024 10:37 AM EDT): LDL goal is less than 70; her most recent lipid panel completed in 02/2024 revealed an LDL of 63. Continue atorvastatin 40 mg daily. We will update a lipid panel and readdress this as indicated. Orders: Lipid panel with reflex to direct LDL; Future Assessment & Plan (07/13/2024 10:02 PM EST): LDL goal is less than 70; her most recent lipid panel completed 04/04/2024 revealed an LDL of 63. Continue atorvastatin 40 mg daily. AVNRT (AV maddie re-entry tachycardia) (CMS/HCC V 24) 06/08/2024 Assessment & Plan (11/08/2024 10:37 AM EDT): Status post ablation in 2019; recent Holter unrevealing in 07/2024. Assessment & Plan (07/13/2024 10:02 PM EST): Degenerative disc disease at L5-S1 level 024 Essential hypertension 06/08/2024 Assessment & Plan (11/08/2024 10:37 AM EDT): Blood pressure is favorable in office today; as discussed above, she will start losartan consistently twice daily monitoring her blood pressures 1 to 2 hours after medications and calling us with these readings in approximately 2 weeks at which point we we will consider readjusting medical therapies as appropriate. Will update labs today as well. Orders: Basic metabolic panel; Future Complete blood count; Future Assessment & Plan (07/13/2024 10:02 PM EST): Blood pressure is favorable in office today; however, she has been taking losartan 50 mg daily in the morning. As discussed above, we will have her trial split dosing with 25 mg in the morning and 25 mg in the evening in an attempt to decrease nighttime blood pressures. We will update a metabolic panel in approximately 1 week. We must consider that there may also be a component of secondary hypertension from untreated sleep apnea as discussed above; unfortunately, the patient is unwilling to proceed with a sleep study at this time. Orders: losartan (COZAAR) 25 mg tablet; Take 1 tablet (25 mg total) by mouth 2 (two) times a day. Basic metabolic panel; Future Chest pain 06/08/2024 Assessment & Plan (11/08/2024 10:37 AM EDT): The patient does have a history of coronary artery disease as discussed below; however, on exam today the area in which her chest discomfort starts is tender to palpation and does somewhat reproduce symptoms; no palpable abnormalities are noted in that area. She does have a history of back and neck pain and this may be interrelated. Positioning appears to affect her symptoms as well as it most often occurs while she is laying in bed. She does associate it with elevated blood pressures as well; however, she does appear to be understandably anxious when this occurs which may be elevating her blood pressure and is occasionally skipping her nighttime dose of losartan which may aggravating this as well. Medication compliance was reinforced. She does not get this chest discomfort with exertion and is able to exert herself well and we discussed that this is reassuring. As below, we discussed return to care precautions as well as when to seek urgent medical attention. Assessment & Plan (07/13/2024 10:02 PM EST): The patient continues to have episodes of chest discomfort that occur only at night and with elevated blood pressures. She has increased her losartan to 50 mg daily as directed upon recent discharge from the ER, but continues to have elevated blood pressures in the evenings. She is taking the entire 50 mg in the morning and I have suggested that she try taking split dosing with 25 mg in the morning and 25 mg in the evening to see if this help even out nighttime blood pressures; she is agreeable to trialing this. We discussed that if we can blood pressures, hopefully she can avoid these episodes of chest pain. We discussed that given her lack of restorative sleep and palpitations with which she wakes at night, I have concern for underlying untreated sleep apnea which may also be contributing to secondary hypertension and her chest discomfort. She adamantly declines a sleep study, stating she does not have sleep apnea and would not use CPAP if it were required. We discussed other potential options for treatment and we also reviewed the potential long-term negative implications of untreated sleep apnea as a relates to her cardiovascular health. She verbalizes understanding of this and states she will consider this, calling the office back if she decides to move forward with a sleep study. Anshuloiliitis ([facility] V24) 06/08/2024 Acute back pain 06/08/2024 Encounters Date Type Department Care Team Description 11/08/2024 7:40 AM EDT Office Visit [facility] Cardiology [facility] [address] [place] [id number] Elenita Nj NP Chest pain, unspecified type (Primary Dx); Coronary artery disease involving pamunkey coronary artery of pamunkey heart without angina pectoris; Status post cardiac catheterization; Mixed hyperlipidemia; Essential hypertension; Palpitations; AVNRT (AV maddie re-entry tachycardia) ([facility] V24); Dizziness; Dyspnea on exertion 08/27/2024 Telephone [facility] Cardiology [facility] [address] [place] [address] Jose Holland MD Med Refill from Last 3 Months Immunizations Name Administration Dates Next Due Influenza trivalent, 0.5mL (Fluad) 65yo and olde r 05/09/2018 Influenza trivalent, 0.5mL, preservative free (Fluarix; FluLaval; Fluzone) ages 6mo and older (Afluria) 3 years and older 04/27/2019 Surgical History Surgery Date Site/Laterality Comments NECK SURGERY PROCEDURE: HISTORICAL NECK SURGERY; COMMENT: C3-5 ACDF 2019, and previous C5-7 ACDF, by Dr. Quiros KNEE SURGERY Right PROCEDURE: HISTORICAL KNEE SURGERY SECTION 2003 PROCEDURE: [place] DELIVERY ONLY OTHER SURGICAL HISTORY 05/27/2022 PROCEDURE: [place] ARTHRD ANT INTERBODY MIN DSC LUMBAR; COMMENT: L5-S1 Dr. 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); COMMENT: on [employer] infusions weekly () Social History Tobacco Use Types Packs/Day Years Used Date Smoking Tobacco: Never Smokeless Tobacco: Never Alcohol Use Standard Drinks/Week Comments No 0 (1 standard drink = 0.6 oz pur e alcohol) Comments Unknown Sex and Gender Information Value Date Recorded Sex Assigned at Not on file Legal Sex Female 9:05 AM EST Gender Identity Not on file Sexual Orientation Not on file Obstetrics History Last Filed Vital Signs Vital Sign Reading Time Taken Comments Blood Pressure 132/80 11/08/2024 7:53 AM EDT Pulse 81 11/08/2024 7:53 AM EDT Temperature - - Respiratory Rate - - Oxygen Saturation 98% 11/08/2024 7:53 AM EDT Inhaled Oxygen Concentration - - Weight 63.5 kg (140 lb) 11/08/2024 7:53 AM EDT Height 161.3 cm (5' 3.5 ) 11/08/2024 7:53 AM EDT Body Mass Index 24.41 11/08/2024 7:53 AM EDT Plan of Treatment Health Maintenance Due Date Last Done Comments Pneumococcal Vaccine: 50+ Years (1 of 2 - PCV) 1981 Pneumococcal Vaccine: Pediatrics (0 to 5 Years) and At-Risk Patients (6 to 64 Years) (1 of 2 - PCV) 1981 Cervical Cancer Screening: Pap Smear 1983 Breast Cancer Screening 01/05/2021 01/05/2019 RSV Immunization Adult Patients (1 - Risk 60-74 years 1-dose series) 2022 Cholesterol Screening (Lipid Panel) 07/04/2022 Colorectal Cancer Screening: Colonoscopy 07/04/2022 Depression Screening 07/04/2022 HIV Screening 07/04/2022 Hepatitis C Screening 07/04/2022 Social Influencers of Health Screening 07/04/2022 Hypertension/CHF/CAD Annual BMP Blood Test 07/07/2022 10/13/2020, 10/13/2020 Influenza Vaccine (Season Ended) 2025 04/27/2019, 05/09/2018 DTaP,Tdap,and Td Vaccines (2 - Td or Tdap) 06/27/2033 06/27/2023 COVID-19 Vaccine Completed 04/01/2024, 01/2023, 11/13/2022, Additional history exists Zoster Vaccines Completed 04/01/2024, 12/26/2023 HIB Vaccines Aged Out No longer eligi ble based on patient's age to complete this topic HPV Vaccines Aged Out No longer eligi ble based on patient's age to complete this topic Hepatitis A Vaccines Aged Out No long er eligible based on patient's age to complete this topic Hepatitis B Vaccines Aged Out No long er eligible based on patient's age to complete this topic IPV Vaccines Aged Out No longer eligi ble based on patient's age to complete this topic MMR Vaccines Aged Out No longer eligi ble based on patient's age to complete this topic Meningococcal ACWY Vaccine Aged Out N o longer eligible based on patient's age to complete this topic Meningococcal B Vaccine Aged Out No l onger eligible based on patient's age to complete this topic RSV Immunization Patients Under 20 months Aged Out No longer eligible based on patient's age to complete this topic Varicella Vaccines Aged Out No longer eligible based on patient's age to complete this topic Medical Devices Implanted Type Area Refrigeration Installer Device Identifier Shelf Expiration Date Model / Serial / Lot Sponge Surgiflo 8ml Hemostatic Matrix Absorbable Latex Free - [id number] Implanted:Qty: 1 on 10/11/2019 by Yobani Quiros MD Implants [employer] FINA 12/25/2020 [id number] / / [id number] Graft Cornerstone Asr Lordotic [id number] Cancellous Cortical - [id number] - [id number] Implanted:Qty: 1 on 10/11/2019 by Yobani Quiros MD [employer] 05/04/2022 [id number] / [id number] / [id number] Graft Cornerstone Asr [id number] Spacer Lordotic Cancellous - [id number] - [id number] Implanted:Qty: 1 on 10/11/2019 by Yobani Quiros MD [employer] 06/22/2022 [id number] / [id number] / [id number] Screw Eldon Acp Self Drill 4.0x14mm Variable - [id number] Implanted:Qty: 6 on 10/11/2019 by Yobani Quiros MD DEPUY SYNTHES [id number] / / Plate Tri-Lobe Cam Loc Eldon Prelordotic 35.8x16x2.5mm 28 - [id number] Implanted:Qty: 1 on 10/11/2019 by Yobani Quiros MD Lovely [id number] / / Procedures Procedure Name Priority Date/Time Associated Diagnosis Comments ANNUAL BMP BLOOD TEST Routine 10/13/2020 [facility] SCREENING DIGITAL Routine 01/05/2019 8:19 AM EDT Encounter for screening mammogram for malignant neoplasm of breast from Last 3 Months or Most Recently Relevant to Health Maintenance Results * Annual BMP Blood Test (10/13/2020) Annual BMP Blood Test abstracted us Historical Provider HEALTH MAINTENANCE Final Result * [facility] SCREENING DIGITAL (01/05/2019 8:19 AM EDT) Anatomical Region Laterality Modality Mammography 12/31/2018 3:52 PM EDT Narrative 01/05/2019 8:19 AM EDT [facility] Diagnostic Imaging Department [address] [place] [id number] Patient: ??EMELY BROCK ?/Age/Sex: 1960 - 58 - F Unit#: ??[id number] ? Location/Status: ??SPDIMAM/REG CLI ? Mnemonic/Ordering Site: ??DIGSC/SPMAM Ordering Physician: ??OSITO MATT MD [facility] Screening Digital - 01/04/19 - 1640 INDICATION: SCREENING COMPARISON: [facility] mammograms dating back to 08/31/2011 TECHNIQUE: CC and MLO views of the breasts were obtained, using full field digital mammography with 3D tomosynthesis views in the MLO projection. 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 FINDINGS: The breasts contain heterogeneously dense tissues, which may lower sensitivity of mammography in this patient. No suspicious masses, suspicious microcalcifications, or areas of architectural distortion are identified. ??There are no secondary signs of breast malignancy. Compared to the prior exam, no adverse interval change. IMPRESSION: ??No specific mammographic evidence of breast malignancy. Lack of an imaging correlate should not deter or delay biopsy of a clinically significant palpable finding. BI-RADS ??- Category 1: Negative 3341F, 7025F Annual screening mammography is recommended. Patient entered into a reminder system with a target date for the next mammogram. (G0202 / [id number]) , ??[id number] Dictating Physician: ??SHIRIN GROVES MD Electronically Signed by: ??SHIRIN GROVES MD Dic Date/Time: ??01/05/19814 Sign date/Time: ??01/05/19818 Procedure Note Shirin Groves - 07/16/2022 [facility] Diagnostic Imaging Department [address] [place] [address] Patient: VINODEMELY J /Age/Sex: 1960 - 58 - F Unit#: [id number] Location/Status: SPDIMA/REG CLI Mnemonic/Ordering Site: [facility] Ordering Physician: OSITO MATT MD [facility] Screening Digital - 06/10/19 - 1641 INDICATION: SCREENING COMPARISON: [facility] mammograms dating back to 08/31/2011 TECHNIQUE: CC and MLO views of the breasts were obtained, using full field digital mammography with 3D tomosynthesis views in the MLO projection. 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 FINDINGS: The breasts contain heterogeneously dense tissues, which may lowersensitivity of mammography in this patient. No suspicious masses, suspicious microcalcifications, or areas ofarchitectural distortion are identified. There are no secondary signs of breastmalignancy. Compared to the prior exam, no adverse interval change. IMPRESSION: No specific mammographic evidence of breast malignancy. Lack of an imaging correlate should not deter or delay biopsy of aclinically significant palpable finding. BI-RADS - Category 1: Negative 3341F, 7025F Annual screening mammography is recommended. Patient entered into a reminder system with a target date for the next mammogram. [id number] / [id number]) , [id number] Dictating Physician: SHIRIN GROVES MD Electronically Signed by: SHIRIN GROVES MD Dic Date/Time: 01/05/19814 Sign date/Time: 01/05/19818 Osito Matt MD IMG BI PROCEDURES Final Result from Last 3 Months or Most Recently Relevant to Health Maintenance Insurance 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 Health Care Decision (hx) 07/27/2013 AD JOSÉ DIRECTIVE Health Care Decision (hx) 07/27/2013 AD KUMAR DIRECTIVE Health Care Decision (hx) 07/27/2013 AD KUMAR DIRECTIVE Health Care Decision (hx) 07/27/2013 AD KUMAR DIRECTIVE Health Care Decision (hx) 07/27/2013 AD KUMAR DIRECTIVE Health Care Decision (hx) 07/27/2013 AD KUMAR DIRECTIVE Health Care Decision (hx) 07/27/2013 AD KUMAR DIRECTIVE Health Care Decision (hx) 07/27/2013 AD KUMAR DIRECTIVE Health Care Decision (hx) 07/27/2013 AD KUMAR DIRECTIVE Health Care Decision (hx) 07/27/2013 AD KUMAR DIRECTIVE Health Care Decision (hx) 07/27/2013 AD KUMAR DIRECTIVE Health Care Decision (hx) 07/27/2013 AD KUMAR DIRECTIVE Health Care Decision (hx) 07/27/2013 AD KUMAR DIRECTIVE Health Care Decision (hx) 07/09/2013 AD KUMAR DIRECTIVE Health Care Decision (hx) 07/09/2013 AD KUMAR DIRECTIVE Health Care Decision (hx) 07/09/2013 AD KUMAR DIRECTIVE Health Care Decision (hx) 07/09/2013 AD KUMAR DIRECTIVE Health Care Decision (hx) 07/09/2013 AD KUMAR DIRECTIVE Health Care Decision (hx) 07/09/2013 AD KUMAR DIRECTIVE Health Care Decision (hx) 07/09/2013 AD KUMAR DIRECTIVE Health Care Decision (hx) 07/09/2013 AD KUMAR DIRECTIVE Health Care Decision (hx) 07/09/2013 AD KUMAR DIRECTIVE Health Care Decision (hx) 07/09/2013 AD KUMAR DIRECTIVE Health Care Decision (hx) 07/09/2013 AD KUMAR DIRECTIVE Health Care Decision (hx) 07/09/2013 AD KUMAR DIRECTIVE Health Care Decision (hx) 07/09/2013 AD KUMAR DIRECTIVE Care Teams Site Worker Relationship Specialty Start Date End Date Karen Delong MD 2 [facility] , [address] Physician Associ D/B/A: [facility] VICTORIA Sneed PCP - General Internal Medicine 07/23/19
--- OUTSIDE RECORDS SUMMARY | 2024-11-12 08:49 | XMS_ITS | Clinical Summary ---
Author Organization [facility], Address [address] [place] [address] Phone Care Team Providers Care Verifier Operator Name Role Phone Unavailable Primary Care Provider Unavailabl e Allergies Active Allergy Reactions Criticality Noted Date Comments Amoxicillin 04/30/2022 Ampicillin 04/30/2022 Doxycycline Nausea 04/30/2022 Penicillins Itching 04/30/2022 Active Problems Problem Noted Date Diagnosed Date Anxiety 05/06/2022 Coronary artery disease due to lipid rich plaque 05/06/2022 Asthma 05/06/2022 Degeneration of intervertebral disc 05/06/2022 Low back pain 04/30/2022 Social History Tobacco Use Types Packs/Day Years Used Date Smoking Tobacco: Never Assessed Comments Unknown Sex and Gender Information Value Date Recorded Sex Assigned at Not on file Legal Sex Female 5:09 PM EST Gender Identity Not on file Sexual Orientation Not on file Last Filed Vital Signs Vital Sign Reading Time Taken Comments Blood Pressure 127/76 05/10/2022 9:35 AM EDT Pulse 101 05/10/2022 9:35 AM EDT Temperature - - Respiratory Rate - - Oxygen Saturation 97% 05/10/2022 9:35 AM EDT Inhaled Oxygen Concentration - - Weight - - Height - - Body Mass Index - - Plan of Treatment Health Maintenance Due Date Last Done Comments Breast Cancer Screening 1962 Colorectal Cancer Screening: Annual FOBT 2011 Colorectal Cancer Screening: Colonoscopy 2011 Colorectal Cancer Screening: Sigmoidoscopy 2011 Pneumococcal Vaccine: 50+ Ye ars (1 of 1 - PCV) 2012 Influenza Vaccine (Season Ended) 2025 Hepatitis B Vaccine Aged Out No longe r eligible based on patient's age to complete this topic Insurance [facility]
--- OUTSIDE RECORDS SUMMARY | 2024-11-12 08:49 | XMS_ITS | Clinical Summary ---
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 Name Role Phone Unavailable Primary Care Provider Unavailabl e Social History Tobacco Use Types Packs/Day Years Used Date Smoking Tobacco: Never Assessed Comments Unknown Sex and Gender Information Value Date Recorded Sex Assigned at Not on file Legal Sex Female 1:45 PM EDT Gender Identity Not on file Sexual Orientation Not on file Plan of Treatment Health Maintenance Due Date Last Done Comments Hepatitis C Virus Screening 1962 HIV Screening 1975 DTaP/Tdap/Td Vaccines (1 - Tdap) 1981 Pneumococcal Vaccines 50+ (1 of 1 - PCV) 2012 Zoster (Shingles) Vaccine (1 of 2) 2012 COVID-19 Vaccine ( - 2023-2 5 season) 2024 RSV Vaccine 60 years and old er and Patients (1 - 1-dose 75+ series) 2037 Hepatitis B Vaccines Aged Out No long er eligible based on patient's age to complete this topic Pneumococcal Vaccine: Pediat daphne (0-5 Years) and At-Risk Patients (6 to 49 Years) Aged Out No longer eligible b ased on patient's age to complete this topic
--- OUTSIDE RECORDS SUMMARY | 2024-11-12 08:49 | XMS_ITS ---
Author Name [facility] Organization Unknown Care Team Organization Name Specialty Phone Email Start Date End [facility]) 06/11/2024 [facility], Primary Care 04/19/2021 03/15/2024
--- OUTSIDE RECORDS SUMMARY | 2024-11-12 08:49 | XMS_ITS | Encounter Summary ---
Author Organization [facility] Address [address] [place] [address] Care Team Providers Care Manager Critical Care Name Role Phone Karen Delong MD Primary Care Provider Reason for Visit * Reason Comments Follow-up 3 mo Encounter Details Date Type Department Care Team (Late st Contact Info) Description 11/08/2024 7:40 AM EDT Office Visit [facility] [address] [place] [address] Elenita Nj NP [address] [place] [address] Chest pain, unspecified type (Primary Dx); Coronary artery disease involving winnebago coronary artery of winnebago heart without angina pectoris; Status post cardiac catheterization; Mixed hyperlipidemia; Essential hypertension; Palpitations; 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); Dizziness; Dyspnea on exertion Social History Tobacco Use Types Packs/Day Years Used Date Smoking Tobacco: Never Smokeless Tobacco: Never Alcohol Use Standard Drinks/Week Comments No 0 (1 standard drink = 0.6 oz pur e alcohol) Comments Unknown Sex and Gender Information Value Date Recorded Sex Assigned at Not on file Legal Sex Female 9:05 AM EST Gender Identity Not on file Sexual Orientation Not on file documented as of this encounter Last Filed Vital Signs Vital Sign Reading [...] Mass Index 24.41 11/08/2024 7:53 AM EDT documented in this encounter Progress Notes * Elenita Nj NP - 11/08/2024 7:40 AM EDTAssociated Problem(s): Coronary artery disease involving winnebago heart without angina pectoris The patient has a history of a [...] blood pressures remain elevated. We will continue cardioprotectivemedical therapies including metoprolol atorvastatin, and daily ASA. The patient was advised to seekemergent medical attention by calling 911 if they were to develop severe dyspnea, chest pain that did not resolve with rest or nitroglycerin, or if they were to faint. Orders: Lipid panel with reflex to direct LDL; Future * Elenita Nj NP - 11/08/2024 7:40 AM EDTAssociated Problem(s): Mixed hyperlipidemia LDL goal is less than 70; her most recent lipid panel completed in 02/2024 revealed an LDL of 63. Continue atorvastatin 40 mg daily. We will update a lipid panel and readdress this as indicated. 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 * Elenita Nj NP - 11/08/2024 7:40 AM EDTAssociated Problem(s): Status post cardiac catheterization * Elenita Nj NP - 11/08/2024 7:40 AM EDTAssociated Problem(s): Essential hypertension Blood pressure is favorable in office today; [...] metabolic panel; Future Complete blood count; Future * Elenita Nj NP - 11/08/2024 7:40 AM EDTAssociated Problem(s): Palpitations Previous 48-hour Holter monitor in July 2024 did not show any underlying arrhythmias that correlated with her symptoms of palpitations, lightheadedness/dizziness, and chest pain. We discussed thisat length today and she states that she [...] to free t4 and free t3; Future * Elenita Nj NP - 11/08/2024 7:40 AM EDTAssociated Problem(s): Dizziness The patient's dizziness appears to be vertiginous in nature; she reports a history of allergies which may leading to eustachian tube dysfunction and contributing to her dizziness. She will be starting loratadine in the very near future as prescribed by another provider and I encouraged her to follow-up with her PCP further regarding this. * Elenita Nj NP - 11/08/2024 7:40 AM EDTAssociated Problem(s): Dyspnea on exertion Dyspnea on exertion is at baseline secondary to her asthma. She is aware to return to care for further evaluation should this worsen, seeking urgent medical attention as appropriate. * Elenita Nj NP - 11/08/2024 7:40 AM EDTAssociated Problem(s): Chest pain The patient does have a history of coronary artery disease as discussed below; however, on exam today the area in which her chest discomfort starts is tender to palpation and does somewhat reproduce symptoms; no palpable abnormalities are noted in that area. She does have a history of back and neckpain and this may be interrelated. Positioning appears to affect her symptoms as well as it most oft en occurs while she is laying in bed. [...] as when to seek urgent medical attention. * Elenita Nj NP - 11/08/2024 7:40 AM EDT Images from the original note were not included. [facility] PRIMARY SONOGRAPHY TECHNOLOGIST: Jose Holland MD PCP: Karen Delong MD HPI: Emely Cartwright is a 64 y.o. old female with a past medical history significant for coronary arterydisease, hypertension, hyperlipidemia, palpitations, and AVNRT status post ablation in 2019. The patient has a history of a 99% lesion at the apex of the LAD noted on cardiac catheterization in 2013 was subsequently managed medically. Regadenoson nuclear stress test completed 09/30/2023 for reports of chest pain revealed 2 small and mild reversible perfusion defects that led to a second cardiac catheterization on 11/21/2023 which revealed only minimal luminal irregularities in the LMCA, LAD, left circumflex, and RCA. Her stress test was subsequently considered to be a false positive. Echocardiogram in 2019 revealed an ejection fraction of 55 to 60% with mild diastolic dysfunction and no significant valvular disease. When I last saw her in June 2024, she had just been seen in the emergency room for reports of chest pain, dizziness, and shortness of breath that had started the day prior; she had had episodes similar to this that all correlated with high blood pressure. Cardiac workup was unrevealing; EKG wasnonischemic. Her losartan was subsequently increased and she was discharged home. During our visit,she reported that the symptoms were happening frequently, waking her from sleep often. Her dizziness often occurred in the morning on waking, with changing positions such as rolling over in bed, or if she moves too fast. She also reports that she never felt well rested in the morning; however, she a damantly declined a sleep study. For reports of palpitations, she underwent a 48-hour Holter monitor on 07/29/2024 which showed a heart rate range of 61 to 120 bpm with an average of 83 bpm. OccasionalPACs (burden 0.3%) and PVCs (burden 0.2%). Her diary reported several entries for lightheadedness and dizziness that all occurred with changing position (sitting to standing and rolling over in bed),palpitations, and chest pain; EKG at this time showed normal sinus rhythm and 1 entry corresponded with an isolated PVC, heart rates were in the range of 73-100. The patient presents today for cardiac follow-up of palpitations, hyperlipidemia, and hypertension.She reports that she is still getting chest pain when her blood pressure reaches the range of 160-170 systolic, especially at night when she is laying in bed. This happens about 2-4 times per month and will last about 30 minutes each episode; she will occasionally take 1 or 2 nitro which does help to improve her symptoms. The pain is sharp and starts in her posterolateral left chest wrapping around to the front and then spreading into her left anterior chest where it begins to feel like pressure. She admits that she has not been taking her losartan consistently and she will skip her evening dose at times either because she feels she does not need it or she forgets. She brings a blood pressure log with her today with numerous readings from various times of the day, systolic blood pressuresranging from 120s to 160s. She continues to walk for exercise, walking over an hour each episode, at least 2-3 times per week. She denies any chest pain or pressure at rest or with exertion. Her shortness of breath is at her previous baseline which she thinks is related to asthma and allergies; herallergies have gotten worse since getting her cat. She is still having palpitations that wake her up at night; she does not feel as though her typical symptoms were present when she had a recent Holter done. She continues to have lightheadedness and dizziness as above (will occasionally feel the room spinning while she is laying down), but it is a little bit improved from previous. No syncope or presyncope. No peripheral edema. No orthopnea or PND. ACTIVE MEDICATIONS: Outpatient Medications Marked as Taking for the 11/08/24 encounter (Office Visit) with Elenita Nj NP Medication Sig Dispense Refill acetaminophen (TYLENOL) 650 mg suppository Take 650 mg by mouth every 8 hours as needed. - Oral albuterol HFA (PROVENTIL HFA;VENTOLIN HFA) 108 (90 Base) MCG/ACT inhaler Inhale 2 puffs by mouth every 4 (four) hours if needed. aspirin 81 mg EC tablet Take 1 tablet (81 mg total) by mouth 1 (one) time each day. atorvastatin (LIPITOR) 40 mg tablet Take 1 tablet (40 mg total) by mouth at bedtime. azelastine HCl (AZELASTINE NASL) Administer into affected nostril(s). cholecalciferol (VITAMIN D-3) 25 mcg (1,000 unit) tablet Take 1 tablet (1,000 Units total) by mouth1 (one) time each day. fluticasone furoate-vilanteroL 50-25 mcg/dose blister with device Inhale into the lungs daily. - Inhalation lidocaine (LIDODERM) 5 % patch Place 1 Patch onto the skin every 24 hours. Apply for no more than 12 hours in any 24 hour period. - Transdermal loratadine (CLARITIN) 10 mg tablet Take 1 tablet (10 mg total) by mouth 1 (one) time each day. losartan (COZAAR) 25 mg tablet Take 1 tablet (25 mg total) by mouth 2 (two) times a day. 180 tablet2 metoprolol succinate (TOPROL-XL) 50 mg 24 hr tablet TAKE 1 TABLET DAILY 90 tablet 3 nitroglycerin (NITROSTAT) 0.[address] 1 tablet (0.4 mg total) under the tongue every 5 (five) minutes if needed for chest pain. TIOTROPIUM BROMIDE INHL Inhale into the lungs. 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) Degenerative disc disease at L5-S1 level Essential hypertension Chest pain Sacroiliitis (CMS/HCC V24) Acute back pain Palpitations Status post cardiac catheterization ALLERGIES: Allergies Allergen Reactions Amoxicillin Nausea And Vomiting Doxycycline Nausea And Vomiting Principen [Ampicillin] Nausea And Vomiting SOCIAL HISTORY: Social History Tobacco Use Smoking status: Never Smokeless tobacco: Never Substance Use Topics Alcohol use: No PHYSICAL EXAM: Vitals: 11/08/24 0753 BP: 132/80 BP Location: Left arm Patient Position: Sitting BP Cuff Size: Small adult Pulse: 81 SpO2: 98% Weight: 63.5 kg (140 lb) Height: 1.613 m (63.5 ) Body mass index is 24.41 kg/m??. Physical Exam Vitals reviewed. Constitutional: General: She is not in acute distress. Appearance: Normal appearance. She is not ill-appearing. HENT: Head: Normocephalic and atraumatic. Mouth/Throat: Mouth: Mucous membranes are moist. Eyes: General: No scleral icterus. Extraocular Movements: Extraocular movements intact. Pupils: Pupils are equal, round, and reactive to light. Neck: Vascular: Normal carotid pulses. No carotid bruit, hepatojugular reflux or JVD. Cardiovascular: Rate and Rhythm: Normal rate and regular rhythm. Pulses: Normal pulses. Heart sounds: Normal heart sounds. No murmur heard. No friction rub. No gallop. Pulmonary: Effort: Pulmonary effort is normal. No respiratory distress. Breath sounds: Normal breath sounds. No wheezing, rhonchi or rales. Abdominal: General: There is no distension. Palpations: Abdomen is soft. Tenderness: There is no abdominal tenderness. Musculoskeletal: General: No swelling. Cervical back: Neck supple. Right lower leg: No edema. Left lower leg: No edema. Comments: Left posterolateral chest wall with muscular tenderness on palpation Skin: General: Skin is warm and dry. Neurological: General: No focal deficit present. Mental Status: She is alert and oriented to person, place, and time. Cranial Nerves: No cranial nerve deficit. Gait: Gait normal. Psychiatric: Attention and Perception: Attention normal. Mood and Affect: Mood and affect normal. Behavior: Behavior normal. Thought Content: Thought content normal. EKG: Not completed today. TESTING: No recent CBC or metabolic panel on file. ASSESSMENT/PLAN: Assessment & Plan Chest pain, unspecified type The patient does have a history of coronary artery disease as discussed below; however, on exam today the area in which her chest discomfort starts is tender to palpation and does somewhat reproduce symptoms; no palpable abnormalities are noted in that area. She does have a history of back and neckpain and this may be interrelated. Positioning appears [...] as when to seek urgent medical attention. Coronary artery disease involving winnebago coronary artery of winnebago heart without angina pectoris The patient has a history of a [...] blood pressures remain elevated. We will continue cardioprotectivemedical therapies including metoprolol atorvastatin, and daily ASA. [facility] by [facility] 911 if they were to develop severe dyspnea, chest pain that did not resolve with rest or nitroglycerin, or if they were to faint. Orders: Lipid panel with reflex to direct LDL; Future Status post cardiac catheterization Mixed hyperlipidemia LDL goal is less than 70; her most recent lipid panel completed in 02/2024 revealed an LDL of 63. Continue atorvastatin 40 mg daily. We will update a lipid panel and readdress this as indicated. Orders: Lipid panel with reflex to direct LDL; Future Essential hypertension Blood pressure is favorable in office today; [...] metabolic panel; Future Complete blood count; Future Palpitations Previous 48-hour Holter monitor in July 2024 did not show any underlying arrhythmias that correlated with her symptoms of palpitations, lightheadedness/dizziness, and chest pain. 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 Dizziness The patient's dizziness appears to be vertiginous in nature; she reports a history of allergies which may leading to eustachian tube dysfunction and contributing to her dizziness. She will be starting loratadine in the very near future as prescribed by another provider and I encouraged her to follow-up with her PCP further regarding this. Dyspnea on exertion Dyspnea on exertion is at baseline secondary to her asthma. She is aware to return to care for further evaluation should this worsen, seeking urgent medical attention as appropriate. Thank you for allowing us to participate in the care of this patient. The patient will follow up in6 months, sooner PRN. As per AHA guidelines and previously established plan of care by Dr. Jose Holland MD, we discussed the following today: Chest pain, coronary artery disease, hypertension, hyperlipidemia, palpitations,and history of AVNRT status post ablation. This note was dictated using voice recognition software. Please pardon any grammatical or syntax errors. [facility] Cosigned by Allen [facility] MD at 11/08/2024 4:20 PM EDT documented in this encounter Plan of Treatment Scheduled Orders Name Type Priority Associated Diagnoses Orde r Schedule Basic metabolic panel Lab Routine Essential hypertension 1 Occurrences starting 11/08/2024 until 11/08/2025 Complete blood count Lab Routine Essential hypertension 1 Occurrences starting 11/08/2024 until 11/08/2025 Lipid panel with reflex to direct LDL Lab Routine Coronary artery disease involving winnebago coronary artery of winnebago heart without angina pectoris Mixed hyperlipidemia 1 Occurrences starting 11/08/2024 until 11/08/2025 Thyroid stimulating hormone with reflex to free t4 and free t3 Lab Routine Palpitations 1 Occurrences starting 11/08/2024 until 11/08/2025 documented as of this encounter Visit Diagnoses Diagnosis Chest pain, unspecified type- Primary Coronary artery disease involving winnebago coronary artery of winnebago heart without angina pectoris Status post cardiac catheterization Other postprocedural status Mixed hyperlipidemia Essential hypertension Unspecified essential hypertension Palpitations 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
[2024-11-12 10:01] LABS: MANUAL DIFF FLAG NO
[2024-11-12 10:08] LABS: Basophils Absolute Auto 0.1 X10*3/uL (0.0-0.2); Basophils Percent Auto 1.2 % (0-2); Eosinophils Absolute Auto 0.2 X10*3/uL (0.0-0.4); Eosinophils Percent Auto 4.5 % (0-4); Hematocrit 38.9 % (37.0-47.0); Hemoglobin 12.8 g/dl (12.0-16.0); Imm Gran Abs Auto 0.01 X10*3/uL (0.00-0.03); Imm Gran Pct Auto 0.2 % (0.0-0.4); Lymphocytes Absolute Auto 1.8 X10*3/uL (1.2-4.9); Lymphocytes Percent Auto 35.8 % (20-40); Mean Corpuscular HGB Conc 32.9 g/dl (31.0-35.0); Mean Corpuscular Hemoglobin 30.3 pg (27.0-33.0); Mean Corpuscular Volume 92.2 fL (80.0-98.0); Mean Platelet Volume 12.9 fL (9.4-12.3); Monocytes Absolute Auto 0.4 X10*3/uL (0.1-1.2); Monocytes Percent Auto 6.8 % (2-11); Neutrophils Absolute Auto 2.7 x10*3/uL (2.0-8.3); Neutrophils Percent Auto 51.5 % (45-73); Platelet Count 141 X10*3/uL (160-400); Red Blood Count 4.22 X10*6/uL (4.20-5.50); Red Cell Distribution Width 13.2 % (11.0-16.0); White Blood Count 5.1 X10*3/uL (4.8-10.8)
[2024-11-12 10:29] LABS: Anion Gap 10 (12-20); Blood Urea Nitrogen 15 mg/dL (9-16); Calcium 8.5 mg/dL (8.4-10.2); Carbon Dioxide 25 mmol/L (22-29); Chloride 110 mmol/L (96-108); Cholesterol 124 mg/dL (<200); Estimated Glomerular Filt Rate > 60; Glucose Random 81 mg/dL (60-115); HDL Cholesterol 60 mg/dL (>40); LDL Cholesterol Calculated 56 mg/dL (<100); Potassium 3.8 mmol/L (3.3-5.1); Sodium 141 mmol/L (135-145); Triglycerides 42 mg/dL (<150)
[2024-11-12 10:47] LABS: TSH reflex Free T4 2.32 uIU/mL (0.32-4.0)
[2024-11-12 12:18] LABS: Reflex LDLD? No
[2024-11-13 09:29] LABS: Triiodothyronine T3 Free 2.9 pg/mL (2.3-4.2)
== END 2024-11-12 08:28 | disposition home or self-care (01) ==
LOC: HO.HMGCLDS 08:27
PROVIDERS: PCP Internal Medicine; Visit Provider Nurse Practitioner Family
DX: R00.2 Palpitations (principal); I10 Essential (primary) hypertension; E78.2 Mixed hyperlipidemia
CPT/HCPCS: 36415; 80048; 80061; 84443; 84481; 85025

== ENCOUNTER 2024-11-23 15:52 | Outpatient (AMB) | payer BC, SELFPAY ==
--- NOTE | 2024-11-23 15:54 | A.OFFVIS_ITS ---
Vital Signs 3 11/23/24 15:55 Height 5 ft 4 in Weight 134 lb 7.712 oz BMI 23.1 BP 150/81 H Blood Pressure Location Lt brachial Position Sitting Pulse 70 Intake Visit Reasons: Repeat colo Intake Note: Emely presents in the office as a repeat colonoscopy. CC: NO concerns - she is just due for a colo! Occupational Health Specialist Required: No Allergies amoxicillin [Amoxicillin] Allergy (Unknown, Verified 11/23/24 15:55) NAUSEA AND VOMITTING, nauseous doxycycline [Doxycycline] Allergy (Unknown, Verified 11/23/24 15:55) NAUSEA AND VOMITTING, upset stomach penicillin G Allergy (Unknown, Verified 11/23/24 15:55) Nausea tizanidine Adverse Reaction (Intermediate, Verified 11/23/24 15:55) vertigo grass,trees,dust Allergy (Unknown, Uncoded 11/23/24 15:55) Unknown Principin Allergy (Unknown, Uncoded 11/23/24 15:55) Vomiting HPI HPI Repeat colo: Details: Assessment & Plan (1) Tubular adenoma of colon: ?Comment: 2 prior scopes at [facility]=TA's last 2015 ?Code(s): D12.6 - Benign neoplasm of colon, unspecified ?Plan: This will be her third colonoscopy. She has a history of TA's. Her last was 5 years ago. She denies any bowel problems, she had some dysphagia r/t her neck surgeries and she has occasional trouble swallowing pills. She has occasional HB that is well relieved with TUMS.? At this time she declines further workup but no she can contact us if her dysphagia worsens. There no prior problems with anesthesia or sedation. Her cardiac problems are well controlled and and she has bad asthma/COPD and she is on multiple inhalers, her pulm is Dr. Richard Cornelius on [facility] in [employer]. No ID problems. Despite her TA's there is no known FHX of crc or polpys.? (2) Asthma: ?Code(s): J45.909 - Unspecified asthma, uncomplicated (3) CAD (coronary artery disease): ?Code(s): I25.10 - Atherosclerotic heart disease of sun'aq coronary artery without angina pectoris ?Qualifiers: ?Associated angina:?without angina??Coronary Disease-Associated Artery/Lesion type:?sun'aq artery??[place] vs. transplanted heart:?sun'aq heart? Qualified Code(s):?I25.10 - Atherosclerotic heart disease of sun'aq coronary artery without angina pectoris ? ? ? Medications:?New peg 3350-electrolytes 236-22.74-6.74 -5.86 gram (Golytely) ?? until fecal effluent is clear; do not exceed a total volume of 2,000 mL 240 mL? PO Q10M 1 day 4,000 mL 0RF Z12.11 - Encounter for screening for malignant neoplasm of colon ? COLONOSCOPY Findings: Terminal Ileum-normal Cecum:normal Ascending Colon: 3-4 mm sessile polyp removed with forceps Transverse Colon - 10-12 mm semi pedunculated polyp removed with cold snare with x 2 clips applied for hemostasis Descending Colon:normal Sigmoid Colon:? 12-13 mm sessile polyp removed with cold snare and x 1 clip applied for hemostasis Rectum: Retroflexion with small internal hemorrhoids, grade I Anorectum - normal polyps internal hemorrhoids Plan: High fiber diet leaflet Avoid straining at stool, epsom salts and sitz bath, anusol supps or cream Repeat Colonoscopy in 3-5 years due to polyps or earlier if clinically indicated BIOPSY Received: 07/23/21 Diagnosis A.? Colon, ascending, polypectomy:? Colonic mucosa with mild surface hyperplastic changes. B.? Colon, transverse, polypectomy:? Inflammatory polyp. C.? Colon, sigmoid, polypectomy:? Fragments of tubular adenoma; no high-grade dysplasia or carcinoma seen. TODAY'S VISIT Patient is here today for repeat colonoscopy as a 5 year follow-up. She has not been seen by this practice since 07/2021.. She denies any bowel or upper GI problems. Her asthma/COPD is well controlled and she denies any cardiac problems. There are no infectious disease problems. She has a history of tubular adenomas and some of them appeared large on the last study but they were mostly inflammatory or hyperplastic. [facility] Medical History (Updated 11/23/24 @ 16:17 by YARELIS Seymour) Colon cancer screening Annual physical exam Physical exam Encounter for preoperative pulmonary examination SVT (supraventricular tachycardia) CAD (coronary artery disease) Low TSH level Non-toxic multinodular goiter Thyroid nodule Dyslipidemia HTN (hypertension) Asthma Disc disorder Surgical History History of back surgery History of colonoscopy with polypectomy H/O arthroscopy Deficient knowledge of temporomandibular joint repair History of cervical spinal surgery History of carpal tunnel release of both wrists History of discectomy Hx of neck surgery Family History Father Hypertension CVD (cardiovascular disease) S/P triple vessel bypass COPD (chronic obstructive pulmonary disease) Mother Stroke CVD (cardiovascular disease) Hypertension Sister Cancer Brother Hypertension Cancer Maternal Aunt Cancer Social History Housing: House Alcohol intake: never Patient Tobacco Use Status: Never used Tobacco e-Cigarette/Vaping Use: Never Used Second Hand Smoke Exposure: No service: No Current occupational status: employed 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 [place] Current occupational exposures/hazards: No Cognitive needs: Yes Hearing needs: No Vision needs: Yes Review of Systems Const Denies fatigue, Denies fever(s), Denies night sweats, Denies poor appetite and Denies weight loss Eyes Details: glasses Reports requires corrective lenses ENT Reports Normal hearing present, Denies dental pain, Denies dysphagia, Denies hearing loss, Denies mouth pain, Reports neck pain, Denies odynophagia, Denies throat swelling, Denies tongue swelling and Reports other (Dentition adequate) Card Reports no additional complaints Resp Reports no additional complaints GI Details: Denies abdominal pain, Denies melena, Denies bloating, Denies hematochezia, Denies constipation, Denies GI cramping, Denies dysphagia, Denies excessive flatus, Denies early satiety, Denies heartburn, Denies diarrhea, Denies nausea, Denies odynophagia, Denies vomiting and Denies hematemesis Musc Reports back pain and Reports neck pain Skin/Breast Denies pruritus, Denies lesions, Denies rash and Denies jaundice Neuro Reports Normal hearing present and Denies Abnormal speech present Endo Denies fatigue Aller/Immun Denies throat swelling and Denies tongue swelling Physical Exam Vital Signs: Last Vital Signs Pulse 70 11/23/24 15:55 BP 150/81 H 11/23/24 15:55 BMI result Body Mass Index 23.1 Const General: cooperative, no acute distress, well developed and well groomed Nutritional Appearance: average body habitus and well nourished Orientation/consciousness: oriented to person, oriented to place and oriented to time Limitations: No language barrier HEENT Head: Yes normocephalic and Yes atraumatic Eyes General: appearance normal, both eyes and all related structures Pupils: Equal, round and reactive pupils present Neck Neck: Yes normal visual inspection and Yes no lymphadenopathy Neck images: 2 1. surgical scar Resp Effort & Inspection: normal respiratory effort and able to speak in complete sentences Auscultation: clear to auscultation bilaterally Cardio Rate: regular rate Rhythm: regular rhythm Heart sounds: Normal, physiologic split S2 sound present Peripheral pulses: radial pulses present and posterior tibial pulses present GI Inspection: No distended and No Abdominal panniculus present Palpation (GI): Soft to palpation, nontender, no guarding, not rigid and No hepatosplenomegaly present Percussion: Yes normal to percussion Auscultation: normal bowel sounds Rectal Exam - Female: deferred Skin General skin exam: no rashes or lesions noted, turgor normal, skin not dry, no jaundice, No spider nevi and no striae Rashes: no rashes Nails: normal Neuro General: oriented to person, oriented to place and oriented to time Cranial nerves: Yes Equal, round and reactive pupils present and Yes Normal hearing present Speech: No Abnormal speech present Extrem General: Yes normal to inspection, No clubbing, No cyanosis and No edema Psych Appearance: grossly normal and well kempt Mental Status: mental status grossly normal Speech and movement: Normal speech and movement present Affect: normal affect Attitude: cooperative Thought process: Normal thought process present and not confabulating Thought content: Normal thought content present Insight: Good insight present (Psych) Judgement: Good judgement present (Psych) Assessment & Plan Assessment & Plan (1) Asthma: Code(s): J45.909 - Unspecified asthma, uncomplicated Category: Medical Qualifiers: Asthma severity: moderate Asthma persistence: persistent Asthma complication type: with acute exacerbation Qualified Code(s): J45.41 - Moderate persistent asthma with (acute) exacerbation (2) Tubular adenoma of colon: Comment: 2 prior scopes at [facility]=TA's last 2015, 2020=large TA repeat 3 years Code(s): D12.6 - Benign neoplasm of colon, unspecified Category: Medical (3) Pre-op examination: Code(s): Z01.818 - Encounter for other preprocedural examination Category: Medical Plan Patient is here today for repeat colonoscopy as a 5 year follow-up. She has not been seen by this practice since 07/2021.. She denies any bowel or upper GI problems. Her asthma/COPD is well controlled and she denies any cardiac problems. There are no infectious disease problems. She has a history of tubular adenomas and some of them appeared large on the last study but they were mostly inflammatory or hyperplastic. Orders: Orders 2 Colonoscopy - GI Use Only Today D12.6 - Benign neoplasm of colon, unspecified, J45.41 - Moderate persistent asthma with (acute) exacerbation, Z01.818 - Encounter for other preprocedural examination Comprehensive Met. Panel Today D12.6 - Benign neoplasm of colon, unspecified, J45.41 - Moderate persistent asthma with (acute) exacerbation, Z01.818 - Encounter for other preprocedural examination Medications: New 2 peg 3350-electrolytes 236-22.74-6.74 -5.86 gram (Golytely) until fecal effluent is clear; do not exceed a total volume of 2,000 mL 240 mL PO Q10M 1 day 4,000 mL 0RF Z12.11 - Encounter for screening for malignant neoplasm of colon bisacodyl (Dulcolax (bisacodyl)) 10 mg (2 x 5 mg) PO BEDTIME 2 days 4 tabs 0RF Coding Level of Care Code New Pt Level 3 (50714) Diagnoses Moderate persistent asthma with acute exacerbation J45.41 Asthma severity: moderate Asthma persistence: persistent Asthma complication type: with acute exacerbation Tubular adenoma of colon D12.6 Pre-op examination Z01.818
[2024-11-23 15:55] VITALS: BP 150/81; PULSE 70; BMI 23.1
== END 2024-11-23 16:25 | disposition home or self-care (01) ==
LOC: HO.HGI 15:52
PROVIDERS: PCP Internal Medicine; Visit Provider Nurse Practitioner
DX: Z01.818 Encounter for other preprocedural examination (principal); Z12.11 Encounter for screening for malignant neoplasm of colon; Z86.0101 Personal history of adenomatous and serrated colon polyps; J45.41 Moderate persistent asthma with (acute) exacerbation
CPT/HCPCS: S0285

== ENCOUNTER 2024-12-25 10:07 | Outpatient (REF) | payer BC, SELFPAY ==
[2024-12-25 13:38] LABS: Hematocrit 38.3 % (37.0-47.0); Hemoglobin 12.5 g/dl (12.0-16.0); Mean Corpuscular HGB Conc 32.6 g/dl (31.0-35.0); Mean Corpuscular Hemoglobin 30.6 pg (27.0-33.0); Mean Corpuscular Volume 93.6 fL (80.0-98.0); Mean Platelet Volume 12.9 fL (9.4-12.3); Platelet Count 144 X10*3/uL (160-400); Red Blood Count 4.09 X10*6/uL (4.20-5.50); Red Cell Distribution Width 12.8 % (11.0-16.0); White Blood Count 4.7 X10*3/uL (4.8-10.8)
[2024-12-25 14:01] LABS: Anion Gap 11 (12-20); Blood Urea Nitrogen 15 mg/dL (9-16); Calcium 8.9 mg/dL (8.4-10.2); Carbon Dioxide 29 mmol/L (22-29); Chloride 107 mmol/L (96-108); Cholesterol 131 mg/dL (<200); Estimated Glomerular Filt Rate > 60; Glucose Random 95 mg/dL (60-115); HDL Cholesterol 61 mg/dL (>40); LDL Cholesterol Calculated 60 mg/dL (<100); Potassium 3.8 mmol/L (3.3-5.1); Sodium 143 mmol/L (135-145); Triglycerides 50 mg/dL (<150)
[2024-12-25 14:16] LABS: TSH reflex Free T4 1.74 uIU/mL (0.32-4.0)
[2024-12-25 15:19] LABS: Reflex LDLD? No
[2024-12-26 22:49] LABS: Triiodothyronine T3 Free 3.3 pg/mL (2.3-4.2)
== END 2024-12-25 10:08 | disposition home or self-care (01) ==
LOC: HO.HMGCLDS 10:07
PROVIDERS: Visit Provider Nurse Practitioner Family
DX: I10 Essential (primary) hypertension (principal); R00.2 Palpitations; I25.10 Atherosclerotic heart disease of native coronary artery without angina pectoris; E78.2 Mixed hyperlipidemia
CPT/HCPCS: 36415; 80048; 80061; 84443; 84481; 85027

== ENCOUNTER 2025-03-01 14:46 | Outpatient (AMB) | payer BC, SELFPAY ==
[2025-03-01 14:48] VITALS: BP 130/78; PULSE 70; O2SAT 98; BMI 23.2
--- NOTE | 2025-03-01 14:48 | MHC.OFFVIS ---
Vital Signs 03/01/25 14:48 Height 5 ft 4 in Weight 135 lb BMI 23.2 BP 130/78 Blood Pressure Location Rt brachial Position Sitting Pulse 70 Pulse Source Pulse Oximeter Pulse Oximetry (%) 98 Oxygen Delivery Method Room Air Intake Visit Reasons: cough Allergies amoxicillin (Amoxicillin) Allergy (Unknown, Verified 11/23/24 15:55) NAUSEA AND VOMITTING, nauseous doxycycline (Doxycycline) Allergy (Unknown, Verified 11/23/24 15:55) NAUSEA AND VOMITTING, upset stomach penicillin G Allergy (Unknown, Verified 11/23/24 15:55) Nausea tizanidine Adverse Reaction (Intermediate, Verified 11/23/24 15:55) vertigo grass,trees,dust Allergy (Unknown, Uncoded 11/23/24 15:55) Unknown Principin Allergy (Unknown, Uncoded 11/23/24 15:55) Vomiting HPI HPI cough: Details: 63-year-old lady, remote minimal smoker in high school, with underlying history of multiple environmental allergies, asthma, nasal bleeds, immune deficiency on IVIG by school age lead teacher (previously by Dr. Burnham) and desensitization injections by ENT (Dr. Chin), now with reasonable control on Breo, Spiriva, and albuterol MDI. Patient denies recent exacerbations. She does complain of slowly worsening dyspnea on exertion, however after walking for about an hour. [facility] Medical History (Updated 03/01/25 @ 15:18 by Ayaz Mcconnell MD) Colon cancer screening Annual physical exam Physical exam Encounter for preoperative pulmonary examination SVT (supraventricular tachycardia) CAD (coronary artery disease) Low TSH level Non-toxic multinodular goiter Thyroid nodule Dyslipidemia HTN (hypertension) Asthma Disc disorder Surgical History History of back surgery History of colonoscopy with polypectomy H/O arthroscopy Deficient knowledge of temporomandibular joint repair History of cervical spinal surgery History of carpal tunnel release of both wrists History of discectomy Hx of neck surgery Family History Father Hypertension CVD (cardiovascular disease) S/P triple vessel bypass COPD (chronic obstructive pulmonary disease) Mother Stroke CVD (cardiovascular disease) Hypertension Sister Cancer Brother Hypertension Cancer Maternal Aunt Cancer Social History Housing: House Alcohol intake: never Patient Tobacco Use Status: Never used Tobacco e-Cigarette/Vaping Use: Never Used Second Hand Smoke Exposure: No service: No Current occupational status: employed 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 [place] Current occupational exposures/hazards: No Cognitive needs: Yes Hearing needs: No Vision needs: Yes Review of Systems Const Denies daytime sleepiness, Denies excessive sweating, Denies fatigue, Denies fever(s), Denies lethargy, Denies malaise, Denies night sweats, Denies snoring and Denies weight loss Eyes Denies blurry vision and Denies itchy eyes ENT Denies nasal congestion, Denies post nasal drip, Denies sinus pain, Denies sinus pressure and Denies other ( Thrush) Card Denies chest pain, Denies pedal edema, Denies dyspnea, Reports dyspnea on exertion, Denies orthopnea and Denies paroxysmal nocturnal dyspnea Resp Denies cough, Denies hemoptysis, Denies excessive phlegm production, Denies dyspnea, Reports dyspnea on exertion, Denies snoring and Denies wheezing GI Denies abdominal pain and Denies heartburn Musc Denies myalgias, Denies arthralgias and Denies joint swelling Skin/Breast Denies rash Neuro Denies memory loss and Denies seizure-like activity Psych Denies abnormal sleep pattern, Denies anxiety and Denies memory loss Endo Denies excessive sweating, Denies fatigue and Denies heat intolerance Alexey/Lymph Denies easy bruising Aller/Immun Denies itchy eyes, Denies seasonal rhinorrhea and Denies wheezing Physical Exam Vital Signs: Last Vital Signs Pulse 70 03/01/25 14:48 BP 130/78 03/01/25 14:48 Pulse Ox 98 03/01/25 14:48 Oxygen Delivery Method Room Air 03/01/25 14:48 BMI result Body Mass Index 23.2 Const General: no acute distress and alert Nutritional Appearance: not obese Orientation/consciousness: Other orientation findings ( oriented) HEENT Head: Yes atraumatic Eyes General: appearance normal, both eyes and all related structures Sclerae: sclerae normal EOM: EOMs intact bilaterally Neck Neck: Yes supple Lymphatic: no lymphadenopathy noted Resp Effort & Inspection: normal respiratory effort and no use of accessory muscles Auscultation: clear to auscultation bilaterally Cardio Rate: regular rate Rhythm: regular rhythm Heart sounds: no gallops, no murmurs and no rubs Skin General skin exam: other ( warm) Extrem General: No clubbing, No cyanosis and No edema Assessment & Plan Assessment & Plan (1) Asthma: Code(s): J45.909 - Unspecified asthma, uncomplicated Category: Medical Qualifiers: Asthma severity: moderate Asthma persistence: persistent Asthma complication type: with acute exacerbation Qualified Code(s): J45.41 - Moderate persistent asthma with (acute) exacerbation Plan: Reasonable control on Breo, Spiriva, and albuterol MDI. Continue current regimen. (2) Dyspnea on exertion: Code(s): R06.09 - Other forms of dyspnea Category: Medical Plan: Unclear etiology, will obtain cardiopulmonary exercise test. Orders: Orders CA cardiopulmonary stress test Today R06.09 - Other forms of dyspnea Coding Level of Care Code Est Pt Level 4 (58305) Diagnoses Moderate persistent asthma with acute exacerbation J45.41 Asthma severity: moderate Asthma persistence: persistent Asthma complication type: with acute exacerbation Dyspnea on exertion R06.09
--- OUTSIDE RECORDS SUMMARY | 2025-03-01 15:19 | XMS_ITS | Clinical Summary ---
Author Organization [facility], Address [address] [place] [address] Phone Care Team Providers Care Production Aide Name Role Phone Unavailable Primary Care Provider [...] of 1 - PCV) 2012 Influenza Vaccine (#1) 2025 Hepatitis B Vaccine Aged Out No longe r eligible based on patient's age to complete this topic Insurance [facility]
--- OUTSIDE RECORDS SUMMARY | 2025-03-01 15:19 | XMS_ITS | Clinical Summary ---
Author Organization [facility] Address [address] [place] [address] Phone Care Team Providers Care Ent Physician Name Role Phone Karen Delong MD Primary Care Provider [phone] Allergies Active Allergy Reactions Criticality Noted Date [...] PM EST): Coronary artery disease invo lving chitimacha heart without angina pectoris 06/08/2024 Assessment & [...] move forward with a sleep study. Anshuloiliitis ([facility] V24) 06/08/2024 Acute back pain 06/08/2024 Immunizations Name Administration Dates Next Due Influenza [...] PROCEDURE: HISTORICAL KNEE SURGERY SECTION 2003 PROCEDURE: TX DELIVERY ONLY OTHER SURGICAL HISTORY 05/27/2022 PROCEDURE: TX ARTHRD ANT INTERBODY MIN DSC LUMBAR; COMMENT: L5-S1 Dr. 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[facility]); COMMENT: on [employer] infusions weekly () Social [...] Years (1 of 2 - PCV) 1981 Cervical Cancer Screening: Pap Smear 1983 Breast Cancer Screening 01/05/2021 01/05/2019 RSV Immunization Adult Patients (1 - Risk 60-74 years 1-dose series) 2022 Cholesterol Screening (Lipid Panel) 07/04/2022 Colorectal Cancer Screening: Colonoscopy 07/04/2022 HIV Screening 07/04/2022 Hepatitis C Screening 07/04/2022 Social Influencers of Health Screening 07/04/2022 Hypertension/CHF/CAD Annual BMP Blood Test 07/07/2022 10/13/2020, 10/13/2020 Depression Screening 07/28/2024 Influenza Vaccine (#1) 2025 04/27/2019, 2017 DTaP,Tdap,and Td Vaccines (2 - Td or [...] this topic Medical Devices Implanted Type Area Bounty Hunter Device Identifier Shelf Expiration Date Model / Serial / Lot Sponge Surgiflo 8ml Hemostatic Matrix Absorbable Latex Free - [id number] Implanted:Qty: 1 on 10/11/2019 by Yobani Quiros MD Implants [employer] 12/25/2020 [id number] / / [id number] Graft Cornerstone Asr Lordotic [id number] Cancellous Cortical - [id number] - [id number] Implanted:Qty: 1 on 10/11/2019 by Yobani Quiros MD [employer] 05/04/2022 [id number] / [id number] / [id number] Graft Cornerstone Asr [id number] Spacer Lordotic Cancellous - [id number] - [id number] Implanted:Qty: 1 on 10/11/2019 by Yobani Quiros MD [employer] 06/22/2022 [id number] / [id number] / [id number] Screw Bieber Acp Self Drill 4.0x14mm Variable - [id number] Implanted:Qty: 6 on 10/11/2019 by Yobani Quiros MD Cydan [id number] / / Plate Tri-Lobe Cam Loc Bieber Prelordotic 35.8x16x2.5mm 28 - [id number] Implanted:Qty: 1 on 10/11/2019 by Yobani Quiros MD Cydan [id number] / / Procedures Procedure Name Priority Date/Time Associated Diagnosis Comments ANNUAL BMP BLOOD TEST Routine 10/13/2020 [facility] SCREENING DIGITAL Routine 01/05/2019 8:19 AM EDT Encounter for screening mammogram for malignant neoplasm of breast from Last 3 Months or Most Recently Relevant to Health Maintenance Results * Annual BMP Blood Test (10/13/2020) Annual BMP Blood Test abstracted us Historical Provider HEALTH MAINTENANCE Final Result * [facility] SCREENING DIGITAL (01/05/2019 8:19 AM EDT) Anatomical Region Laterality Modality Mammography 12/31/2018 3:52 PM EDT Narrative 01/05/2019 8:19 AM EDT [facility] Diagnostic Imaging Department [address] [place] [id number] Patient: EMELY BROCK /Age/Sex: 1960 - 58 - F Unit#: [id number] Location/Status: SPDIMAM/REG CLI Mnemonic/Ordering Site: [facility] Ordering Physician: OSITO MATT MD Radha Screening Digital - 01/04/19 - 1641 INDICATION: SCREENING COMPARISON: [facility] mammograms dating back to 08/31/2011 TECHNIQUE: CC and MLO views of the breasts were obtained, using full field digital mammography with 3D tomosynthesis views in the MLO projection. Computer aided detection with the Mtivity 7.2-H was employed. FINDINGS: The breasts contain heterogeneously dense tissues, which may lower sensitivity of mammography in this patient. No suspicious masses, suspicious microcalcifications, or areas of architectural distortion are identified. There are no secondary signs of breast malignancy. Compared to the prior exam, no adverse interval change. IMPRESSION: No specific mammographic evidence of breast malignancy. Lack of an imaging correlate should not deter or delay biopsy of a clinically significant palpable finding. BI-RADS - Category 1: Negative 3341F, 7025F Annual screening mammography is recommended. Patient entered into a reminder system with a target date for the next mammogram. ([id number] / [id number]) , [id number] Dictating Physician: SHIRIN GROVES MD Electronically Signed by: SHIRIN GROVES MD Dic Date/Time: 01/05/19814 Sign date/Time: 01/05/19818 Procedure Note Shirin Groves - 07/16/2022 [facility] Diagnostic Imaging Department [address] [place] [address] Patient: EMELY BROCK /Age/Sex: 1960 - 58 - F Unit#: [id number] Location/Status: SPDIMAM/REG CLI Mnemonic/Ordering Site: [facility] Ordering Physician: OSITO MATT MD Radha Screening Digital - 01/04/19 - 1640 INDICATION: SCREENING COMPARISON: [facility] mammograms dating back to 08/31/2011 TECHNIQUE: CC and MLO views of the breasts were obtained, using full field digital mammography with 3D tomosynthesis views in the MLO projection. Computer aided detection with the Mtivity 7.2-H was employed. FINDINGS: The breasts contain [...] a target date for the next mammogram. 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
--- OUTSIDE RECORDS SUMMARY | 2025-03-01 15:20 | XMS_ITS | Clinical Summary ---
Author Organization [facility] Address [address] [place] [address] Care Team Providers Care Bath Mix Operator Name Role Phone Unavailable Primary Care [...]
--- OUTSIDE RECORDS SUMMARY | 2025-03-01 15:20 | XMS_ITS | Clinical Summary ---
Author Organization Formerly [facility] Address [address] [place] [address] Care Team Providers Care Oracle Technical Architect Name Role Phone Karen Gonzalez MD Primary [...] Tract Disorder Take by mouth. 0 Active Qymu-Pboymozav-Kjr-Me thyl Randall (1ST MEDX-PATCH/ LIDOCAINE) 4-0.025-5-20 % [...] 77 10/14/2020 9:22 AM EDT Temperature 36.3 C (97.4 F) 10/14/2020 9:22 AM EDT Respiratory Rate 16 10/14/2020 9:22 AM EDT [...] (1 of 2) 2012 Influenza Vaccine (#1) 2025 RSV Adult > 60+ Yrs or Pregn [...] this topic Medical Devices Implanted Type Area Customer Service Agent Device Identifier Shelf Expiration Date Model / Serial / Lot Sponge Surgiflo 8ml Hemostatic Matrix Absorbable Latex Free - [id number] - [id number] Implanted:Qty: 1 on 10/11/2019 by Yobani Quiros [place] [facility] [place] Hemostatic Agent [employer] 12/25/2020 2991 / / [id number] Graft Cornerstone Asr Lordotic [id number] Cancellous Cortical - [id number] - [id number] Implanted:Qty: 1 on 10/11/2019 by Yobani Quiros MD [place] [facility] [place] [place] [employer] 05/04/2022 [id number] / [id number] / [id number] Graft Cornerstone Asr [id number] Spacer Lordotic Cancellous - [id number] - [id number] Implanted:Qty: 1 on 10/11/2019 by Yobani Quiros MD [place] [facility] [place] [employer] SOFAM[employer] DANE[employer] 06/22/2022 [id number] / [id number] / [id number] Screw [place] Acp Self Drill 4.0x14mm Variable - [id number] - [id number] Implanted:Qty: 6 on 10/11/2019 by Yobani Quiros MD [place] [facility] [place] [employer] [id number] / / Plate Tri-Lobe Cam Loc [place] Prelordotic 35.8x16x2.5mm 28 - [id number] - [id number] Implanted:Qty: 1 on 10/11/2019 by Yobani Quiros MD [place] [facility] [place] [employer] [id number] / / Advance Directives For more information, please contact: [phone] Latest Code Status on File Code Status [...] will or healthcare instructions . Care Teams Oracle Technical Architect Relationship Specialty Start Date End Date Karen Gonzalez MD [address] [place] [address] , [address] Physician Associ D/B/A: [facility] [place] [id number] PCP - General Internal Medicine 07/23/19
--- OUTSIDE RECORDS SUMMARY | 2025-03-01 15:20 | XMS_ITS ---
Author Name [facility] Organization Unknown Care Team Organization Name Specialty Phone Email Start Date End [facility] 06/11/2024 [facility], [facility], Primary Care 04/19/2021 03/15/2024
== END 2025-03-01 15:07 | disposition home or self-care (01) ==
LOC: HO.HPS 14:46
PROVIDERS: PCP Internal Medicine; Visit Provider Internal Medicine Pulmonary Disease
DX: J45.41 Moderate persistent asthma with (acute) exacerbation (principal); R06.09 Other forms of dyspnea
CPT/HCPCS: 99214

== ENCOUNTER 2025-04-06 16:29 | Outpatient (AMB) | payer BC, SELFPAY ==
[2025-04-06 16:31] VITALS: BP 142/98; PULSE 80; O2SAT 98; BMI 23.7
--- NOTE | 2025-04-06 16:31 | MHC.PC.OV ---
Vital Signs 04/06/25 16:31 04/06/25 17:05 Height 5 ft 4 in Weight 138 lb BMI 23.7 BP 142/98 H 130/80 Blood Pressure Location Lt brachial Lt brachial Position Sitting Sitting Pulse 80 Pulse Source Pulse Oximeter Pulse Oximetry (%) 98 Oxygen Delivery Method Room Air Intake Visit Reasons: 6 month f/u, resched Impregnator Electrolytic Capacitors Required: No Accompanied by: Self / Same As Patient Allergies amoxicillin (Amoxicillin) Allergy (Unknown, Verified 04/06/25 16:52) NAUSEA AND VOMITTING, nauseous doxycycline (Doxycycline) Allergy (Unknown, Verified 04/06/25 16:52) NAUSEA AND VOMITTING, upset stomach penicillin G Allergy (Unknown, Verified 04/06/25 16:52) Nausea tizanidine Adverse Reaction (Intermediate, Verified 04/06/25 16:52) vertigo grass,trees,dust Allergy (Unknown, Uncoded 04/06/25 16:52) Unknown Principin Allergy (Unknown, Uncoded 04/06/25 16:52) Vomiting Medication List - Last Reconciled 04/06/25 by Karen Delong MD acetaminophen mg PO PRN albuterol sulfate 1.25 mg (3 mL) inhalation QID PRN albuterol sulfate 90 mcg/actuation 2 inhalations PO Q4H PRN aspirin (Adult Low Dose Aspirin) 81 mg PO DAILY atorvastatin 40 mg PO DAILY azelastine 2 sprays intranasal BID 30 days bisacodyl (Dulcolax (bisacodyl)) 10 mg (2 x 5 mg) PO BEDTIME 2 days cyclobenzaprine 5 - 10 mg PO BEDTIME PRN epinephrine IM fluticasone furoate-vilanterol 50-25 mcg/dose (Breo Ellipta) 1 inh inhalation DAILY 30 days lidocaine 5% 1 patch topical DAILY loratadine (Allergy Relief (loratadine)) 10 mg PO DAILY losartan 25 mg PO BID metoprolol succinate ER 50 mg PO DAILY nitroglycerin mg sublingual omeprazole 20 mg PO DAILY PRN 90 days peg 3350-electrolytes 236-22.74-6.74 -5.86 gram (Golytely) 240 mL PO Q10M 1 day Spiriva Respimat 1.25 mcg/actuation (tiotropium bromide) 2 inhalations PO DAILY NS valacyclovir 500 mg PO DAILY Tobacco use date assessed: 04/06/25 Dental Screening Dental Screen Date: 04/06/25 Did you have a dental visit in the last 12 months?: Yes Did you have a dental problem in the last 6 months where you did not have access to dental care?: No Was dental information given to patient?: Patient has dentist HPI HPI Comments History of Present Illness Details This is a 64-year-old female with essential hypertension, chronic GERD, dyslipidemia, history of supraventricular tachycardia status post ablation in 2019, asthma and cervical disc disease that comes today for follow-up on her conditions. Blood pressure recheck and was stable. GERD has been stable with PPIs as needed. On statins for pure hypercholesterolemia which has been well control. No history of palpitations. Her moderate persistent asthma is follow by pulmonology and has been well controlled with long-acting inhaler no requiring any prednisone or rescue inhaler as much as before. She has cervical disc disease and follow by pain management which treats her with local injections occasionally. No chest pain or shortness on breath. [facility] Medical History (Updated 04/06/25 @ 19:47 by Karen Delong MD) Colon cancer screening Annual physical exam Physical exam Encounter for preoperative pulmonary examination SVT (supraventricular tachycardia) CAD (coronary artery disease) Low TSH level Non-toxic multinodular goiter Thyroid nodule Dyslipidemia HTN (hypertension) Asthma Disc disorder Surgical History History of back surgery History of colonoscopy with polypectomy H/O arthroscopy Deficient knowledge of temporomandibular joint repair History of cervical spinal surgery History of carpal tunnel release of both wrists History of discectomy Hx of neck surgery Family History Father Hypertension CVD (cardiovascular disease) S/P triple vessel bypass COPD (chronic obstructive pulmonary disease) Mother Stroke CVD (cardiovascular disease) Hypertension Sister Cancer Brother Hypertension Cancer Maternal Aunt Cancer Social History Housing: House Alcohol intake: never Patient Tobacco Use Status: Never used Tobacco e-Cigarette/Vaping Use: Never Used Second Hand Smoke Exposure: No service: No Current occupational status: employed 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 1. Little interest or pleasure in doing things: not at all 2. Feeling down, depressed, or hopeless: not at all 3. Trouble falling or staying asleep, or sleeping too much: not at all 4. Feeling tired or having little energy: not at all 5. Poor appetite or overeating: not at all 6. Feeling bad about yourself - or that you are a failure or have let yourself or your family down: not at all 7. Trouble concentrating on things, such as reading the newspaper or watching television: not at all 8. Moving or speaking so slowly that other people could have noticed. Or the opposite - being so fidgety or restless that you have been moving around a lot more than usual: not at all 9. Thoughts that you would be better off or of hurting yourself in some way: not at all Total score: 0 Depression Screening Interpretation: Negative Depression Screening Done: Yes 66268 - PHQ-9 Billing: Yes Source: Developed by Drs. Dusty Green, Poornima [place], Ian Hanks and colleagues, with an educational sybil from [employer]. Thrive Questionnaire Date Thrive assessed: 04/06/25 I am a: Patient What is your living situation today?: I have a steady place to live Within the past 12 months, did the food you bought not last and you didn't have the money to get more?: I choose not to answer this question Within the past 12 months, did you worry whether your food would run out before you got money to buy more?: Never true Do you have trouble paying for medicines?: No Do you have trouble getting transportation to medical appointments?: No Do you have trouble paying your heating and electricity bill?: No Do you have trouble taking care of your child, family member or friend?: No Do you have trouble with day-to-day activities such as bathing, preparing meals, shopping, managing finances, etc.?: No Are you currently unemployed and looking for a job?: No Are you interested in more education?: No Please select the resources that you would like help with: None Currently or been in a relationship where the following occur: I choose not to answer THRIVE Score: 0 AUDIT C Alcohol Use Questionnaire (AUDIT-C) 1. How often do you have a drink containing alcohol?: Never 3. How often do you have six or more drinks on one occasion?: Never Total Score: 0 Score Reviewed/Action Taken: No PAULETTE-7 AMB Questionnaire PAULETTE-7 Date PAULETTE - 7 assessed: 04/06/25 Feeling nervous, anxious, or on edge: 0 = Not at all Not being able to stop or control worryin = Not at all Worrying too much about different things: 0 = Not at all Trouble relaxin = Not at all Being so restless that it is hard to sit still: 0 = Not at all Becoming easily annoyed or irritable: 0 = Not at all Feeling afraid as if something awful might happen: 0 = Not at all Total PAULETTE-7 score (0-4 normal; 5-9 mild; 10-14 moderate; 15-21 severe): 0 Source: Developed by Drs. Dusyt Green, Poornima [place], Ian Hanks and colleagues, with an educational sybil from [employer]. PAULETTE-7 Assessment Billing PAULETTE-7 Assessment Tool: PAULETTE-7 Assessment 05665 Review of Systems Const All systems reviewed & are unremarkable except as noted in HPI and below Card Denies chest pain at rest, Denies chest pain with activity, Denies edema, Denies irregular heart rhythm, Denies claudication, Denies dyspnea, Denies dyspnea on exertion, Denies orthopnea, Denies paroxysmal nocturnal dyspnea and Denies slow heart rate Resp Denies cough, Denies dyspnea and Denies dyspnea on exertion GI Denies abdominal pain, Denies change in bowel habits, Denies excessive flatus, Denies nausea and Denies vomiting Physical exam (Primary Care) Vital Signs: Last Vital Signs Pulse 80 04/06/25 16:31 BP 130/80 04/06/25 17:05 Pulse Ox 98 04/06/25 16:31 Oxygen Delivery Method Room Air 04/06/25 16:31 BMI result Body Mass Index 23.7 Tobacco/Smoking Status: Tobacco use Status Tobacco use date assessed 04/06/25 04/06/25 16:36 Patient Tobacco Use Status Never used Tobacco 04/06/25 16:32 e-Cigarette/Vaping Use Never Used 04/06/25 16:32 PHQ-9: PHQ-9 Score PHQ-9: Total score 0 04/06/25 16:55 Depression Screening Interpretation: Negative Thrive Assessment: Date of Thrive Assessment Date Thrive assessed 04/06/25 04/06/25 16:36 Currently or been in a relationship where the following occur: I choose not to answer Resp Effort & Inspection: normal respiratory effort Auscultation: clear to auscultation bilaterally Cardio Jugular venous distension: no JVD Rate: regular rate Rhythm: regular rhythm Heart sounds: S1 normal heart sound present and S2 normal heart sound present Extrem General: Yes full ROM Coding Level of Care Code Est Pt Level 4 (98226) Complex EM visit Add On G2211 Diagnoses SVT (supraventricular tachycardia) I47.1 Dyslipidemia E78.5 Essential hypertension I10 Chronic GERD K21.9 Moderate persistent asthma with acute exacerbation J45.41 Asthma severity: moderate Asthma persistence: persistent Asthma complication type: with acute exacerbation Cervical disc disease M50.90 Additional Codes PAULETTE-7 Assessment Billing - PAULETTE-7 Assessment Tool: PAULETTE-7 Assessment 46876 ([id number]) PHQ-9 - 68310 - PHQ-9 Billing: Yes ([id number]) Time Spent (min) 26 Assessment & Plan Assessment & Plan (1) SVT (supraventricular tachycardia): Comment: s/p ablation 2018 Code(s): I47.1 - Supraventricular tachycardia Category: Medical (2) Dyslipidemia: Code(s): E78.5 - Hyperlipidemia, unspecified Category: Medical (3) Essential hypertension: Code(s): I10 - Essential (primary) hypertension Category: Medical (4) Chronic GERD: Code(s): K21.9 - Gastro-esophageal reflux disease without esophagitis Category: Medical (5) Asthma: Code(s): J45.909 - Unspecified asthma, uncomplicated Category: Medical Qualifiers: Asthma severity: moderate Asthma persistence: persistent Asthma complication type: with acute exacerbation Qualified Code(s): J45.41 - Moderate persistent asthma with (acute) exacerbation (6) Cervical disc disease: Code(s): M50.90 - Cervical disc disorder, unspecified, unspecified cervical region Category: Medical Plan Continue current meds. Follow-up with pulmonology for her asthma. Follow-up with pain management for her cervical sick disc disease. Orders: Orders Lipid Panel Today E78.5 - Hyperlipidemia, unspecified Comprehensive [place]. Panel Fast Today I47.1 - Supraventricular tachycardia
[2025-04-06 17:05] VITALS: BP 130/80
--- OUTSIDE RECORDS SUMMARY | 2025-04-06 18:44 | XMS_ITS | Clinical Summary ---
Author Organization [facility] Address [address] [place] [address] Care Team Providers Care Master Yacht Name Role Phone Karen Gonzalez MD Primary [...] Tract Disorder Take by mouth. 0 Active Ajis-Pvhjpfwcu-Dsj-Me thyl Randall (1ST MEDX-PATCH/ LIDOCAINE) 4-0.025-5-20 % [...] this topic Medical Devices Implanted Type Area Java Security Architect Device Identifier Shelf Expiration Date Model / Serial / Lot Sponge Surgiflo 8ml Hemostatic Matrix Absorbable Latex Free - [id number] - [id number] Implanted:Qty: 1 on 10/11/2019 by Yobani Quiros MD at [facility] [place] Hemostatic Agent J[employer] 12/25/2020 2991 / / [id number] Graft Cornerstone Asr Lordotic [id number] Cancellous Cortical - 241254 - [id number] Implanted:Qty: 1 on 10/11/2019 by Yobani Quiros MD at [facility] [place] [facility] Med [employer] SOFAMOR DANEK 05/04/2022 [id number] / [id number] / [id number] Graft Cornerstone Asr [id number] Spacer Lordotic Cancellous - 225880 - [id number] Implanted:Qty: 1 on 10/11/2019 by Yobani Quiros MD at [facility] [place] and Med [employer] SOF[employer] 06/22/2022 [id number] / [id number] / [id number] Screw [place] Acp Self Drill 4.0x14mm Variable - 687670 - [id number] Implanted:Qty: 6 on 10/11/2019 by Yobani Quiros MD at [facility] [place] and [employer] 1868-50-014 / / Plate Tri-Lobe Cam Loc [place] Prelordotic 35.8x16x2.5mm 28 - [id number] - [id number] Implanted:Qty: 1 on 10/11/2019 by Yobani Quiros MD at [facility] [place] and [employer] [id number] / / Advance Directives For more information, please contact: [phone] Latest Code Status on File Code Status [...] will or healthcare instructions . Care Teams Master Yacht Relationship Specialty Start Date End Date Karen Gonzalez MD [address] [place] [address] , [address] Physician Associ D/B/A: [facility] [id number] PCP - General Internal Medicine 07/23/19
--- OUTSIDE RECORDS SUMMARY | 2025-04-06 18:44 | XMS_ITS | Clinical Summary ---
Author Organization [address] [facility] Address [address] [place] [address] Phone Care Team Providers Care Scrap Carrier Name Role Phone Karen Delong MD Primary Care Provider Allergies Active Allergy Reactions Criticality Noted Date [...] PM EST): Coronary artery disease invo lving [place] heart without angina pectoris 06/08/2024 Assessment & [...] move forward with a sleep study. Anshuloiliitis ([facility] V24) 06/08/2024 Acute back pain 06/08/2024 [...] PROCEDURE: HISTORICAL KNEE SURGERY SECTION 2003 PROCEDURE: [place] DELIVERY ONLY OTHER SURGICAL HISTORY 05/27/2022 PROCEDURE: [place] ARTHRD ANT INTERBODY MIN DSC LUMBAR; COMMENT: L5-S1 Dr. 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[employer] infusions weekly () [...] this topic Medical Devices Implanted Type Area Store Manager Device Identifier Shelf Expiration Date Model / Serial / Lot Sponge Surgiflo 8ml Hemostatic Matrix Absorbable Latex Free - [id number] Implanted:Qty: 1 on 10/11/2019 by Yobani Quiros MD Implants [employer] 12/25/2020 2991 / / [id number] Graft Cornerstone Asr Lordotic [id number] Cancellous Cortical - 705305 - [id number] Implanted:Qty: 1 on 10/11/2019 by Yobani Quiros MD [employer] 05/04/2022 [id number] / [id number] / [id number] Graft Cornerstone Asr [id number] Spacer Lordotic Cancellous - 190888 - [id number] Implanted:Qty: 1 on 10/11/2019 by Yobani Quiros MD [employer] 06/22/2022 [id number] / [id number] / [id number] Screw [place] Acp Self Drill 4.0x14mm Variable - [id number] Implanted:Qty: 6 on 10/11/2019 by Yobani Quiros MD [employer] 1868-50-014 / / Plate Tri-Lobe Cam Loc [place] Prelordotic 35.8x16x2.5mm 28 - [id number] Implanted:Qty: 1 on 10/11/2019 by Yobani Quiros MD [employer] [id number] / / Procedures Procedure Name Priority Date/Time Associated Diagnosis Comments ANNUAL BMP BLOOD TEST Routine 10/13/2020 [facility] SCREENING DIGITAL Routine 01/05/2019 8:19 AM EDT Encounter for screening mammogram for malignant neoplasm of breast from Last 3 Months or Most Recently Relevant to Health Maintenance Results * Annual BMP Blood Test (10/13/2020) Annual BMP Blood Test abstracted us Historical Provider HEALTH MAINTENANCE Final Result * [facility] SCREENING DIGITAL (01/05/2019 8:19 AM EDT) Anatomical Region Laterality Modality Mammography 12/31/2018 3:52 PM EDT Narrative 01/05/2019 8:19 AM EDT [facility] Diagnostic Imaging Department [address] [place] [address] Patient: EMELY BROCK /Age/Sex: 1960 - 58 - F Unit#: [id number] Location/Status: SPDIMAM/REG CLI Mnemonic/Ordering Site: [facility] Ordering Physician: OSITO MATT MD Radha Screening Digital - 01/04/19 - 1641 INDICATION: SCREENING COMPARISON: [facility] mammograms dating back to 08/31/2011 TECHNIQUE: CC and MLO views of the breasts were obtained, using full field digital mammography with 3D tomosynthesis views in the MLO projection. Computer aided detection with the Rounds 7.2-H was employed. FINDINGS: The breasts contain [...] a target date for the next mammogram. (P4863 / 97201) , 41670 Dictating Physician: SHIRIN GROVES MD Electronically Signed by: SHIRIN GROVES MD Dic Date/Time: 01/05/19814 Sign date/Time: 01/05/19818 Procedure Note Shirin Groves - 07/16/2022 [facility] Diagnostic Imaging Department [address] [place] [address] Patient: EMELY BROCK /Age/Sex: 1960 - 58 - F Unit#: [id number] Location/Status: SPDIMAM/REG CLI Mnemonic/Ordering Site: [facility] Ordering Physician: OSITO MATT MD Radha Screening Digital - 01/04/19 - 1640 INDICATION: SCREENING COMPARISON: [facility] mammograms dating back to 08/31/2011 TECHNIQUE: CC and MLO views of the breasts were obtained, using full field digital mammography with 3D tomosynthesis views in the MLO projection. Computer aided detection with the Rounds 7.2-H was employed. FINDINGS: The breasts contain [...] a target date for the next mammogram. G0792 / 23134) , 54108 Dictating Physician: SHIRIN GROVES MD Electronically Signed by: SHIRIN GROVES MD Dic Date/Time: 01/05/19814 Sign date/Time: 01/05/19818 us Osito Matt MD IMG BI PROCEDURES Final Result from Last 3 Months or Most Recently Relevant to Health Maintenance Insurance [facility] Advance Directives Documents on File Type Date Recorded Patient Linux Architect Expl anation Health Care Decision (hx) 07/27/2013 [...] (hx) 07/09/2013 AD KUMAR DIRECTIVE Care Teams Scrap Carrier Relationship Specialty Start Date End Date Karen Delong MD [address] [facility] , [address] [facility] Physician Associ D/B/A: [facility] VICTORIA Sneed PCP - General Internal Medicine 07/23/19
--- OUTSIDE RECORDS SUMMARY | 2025-04-06 18:44 | XMS_ITS | Clinical Summary ---
Author Organization [facility], Address [address] [place] [address] Phone Care Team Providers Care Assembly Line Worker Name Role Phone Unavailable Primary Care [...] patient's age to complete this topic Insurance [facility]
--- OUTSIDE RECORDS SUMMARY | 2025-04-06 18:44 | XMS_ITS | Clinical Summary ---
Author Organization [facility] Address [address] [facility] [address] [place] [phone] Phone Care Team Providers Care Cryogenics Engineer Name Role Phone Karen Gonzalez MD Primary Care Provid er System, Provider Not In PhD Unavailable Unav ailable Allergies Active Allergy Reactions Criticality Noted Date Comments Amoxicillin 02/02/2015 Ampicillin 02/02/2015 Doxycycline 02/02/2015 Medications fluticasone propion-salmete roL (ADVAIR DISKUS) 500-50 mcg/dose DISKUS 12/29/2014 Act mariana atorvastatin (LIPITOR) 40 MG tablet 12/08/2014 Active acetaminophen (TYLENOL) 325 mg tablet Take 650 mg by mouth every 6 (six) hours as needed for mild pain. Active lidocaine (LIDODERM) 5 % Place 1 patch onto the skin daily. Remove & Discard patch within 12 hours or as directed by MD Active cycloSPORINE (RESTASIS) 0.05 % suspension Apply to eye. Act mariana albuterol 90 mcg/actuation inhaler Inhale 2 puffs into the lungs every 6 (six) hours as needed. Active tiotropium (SPIRIVA HANDIHALER) 18 mcg inhalation capsule Inhale 18 mcg into the lungs. Active acyclovir (ZOVIRAX) 400 MG tablet 11/08/2021 Active cyclobenzaprine (FLEXERIL) 5 MG tablet TAKE 1-2 BY MOUTH EVERY DAY AT BEDTIME NEEDED 11/20/2021 Active Active Problems No known active problems Family History Medical History Relation Comments Heart disease Father Relation Status Comments Father Social History Tobacco Use Types Packs/Day Years Used Date Smoking Tobacco: Never Smokeless Tobacco: Never Alcohol Use Standard Drinks/Week Comments No 0 (1 standard drink = 0.6 oz pur e alcohol) Education Answer Date Recorded Are you interested in more education? Not on ubaldo e 11/22/2022 Are you concerned about learning? Not on file 11/22/2022 No 11/22/2022 No 11/22/2022 Digital Access Answer Date Recorded No 12/24/2022 No 12/24/2022 No 12/24/2022 Reliable internet access at home? Not on file 12/24/2022 Device with a working camera? Not on file Comments Unknown Sex and Gender Information Value Date Recorded Sex Assigned at Not on file Legal Sex Female 9:58 AM EDT Gender Identity Not on file Sexual Orientation Not on file Last Filed Vital Signs Vital Sign Reading Time Taken Comments Blood Pressure - - Pulse - - Temperature - - Respiratory Rate - - Oxygen Saturation - - Inhaled Oxygen Concentration - - Weight 65.8 kg (145 lb) 11/28/2021 2:15 PM EDT Height 161.3 cm (5' 3.5 ) 11/28/2021 2:15 PM EDT Body Mass Index 25.28 11/28/2021 2:15 PM EDT Plan of Treatment Health Maintenance Due Date Last Done Comments Adult Td,Tdap Booster 1962 LIPID PANEL 1962 DEPRESSION SCREENING 1974 HEPATITIS C SCREENING 1980 HIV ONE-TIME SCREENING (18-6 5 YEARS) 1980 PAP SMEAR 1983 MAMMOGRAM 2002 COLOGUARD 2007 COLONOSCOPY 2007 COLORECTAL CANCER SCREENING 2007 FIT TEST 2007 FOBT 2007 SIGMOIDOSCOPY 2007 VIRTUAL COLONOSCOPY 2007 PNEUMOCOCCAL VACCINES (50+ y ears) (1 of 1 - PCV) 2012 ZOSTER VACCINES (1 of 2) 2012 INFLUENZA VACCINE (#1) 2025 COVID-19 VACCINE (1 - 2023-2 5 season) 2025 RSV VACCINE (1 - 1-dose 75+ series) 2037 SMOKING STATUS SCREENING (On ce After 26 Yrs) Completed 11/28/2021 HEPATITIS A VACCINES Aged Out No long er eligible based on patient's age to complete this topic HIB VACCINES Aged Out No longer eligi ble based on patient's age to complete this topic MENINGOCOCCAL VACCINES (ACWY) Aged Out No longer eligible based on patient's age to complete this topic MENINGOCOCCAL VACCINES (B) Aged Out N o longer eligible based on patient's age to complete this topic Medical Devices Not on file [place] [place] [address] [address] [place] [address] [place] [address] OUT [facility] PPO [facility] OUT [facility] PPO PPO [employer]PO [employer] OUT OF STATE PPO [employer] OUT OF STATE PPO [employer] OUT OF STATE PPO [facility] OUT OF STATE PPO Care Teams Cryogenics Engineer Relationship Specialty Start Date End Date Karen Gonzalez MD [address] [place] [address] PCP - General Internal Medicine 03/19/18 System, Provider Not In, PhD [facility] [address] [address] Referring Physician 03/19/18 Additional Source Comments The information contained in this document represents components of the legal health record. It is not the complete legal health record.[facility]
--- OUTSIDE RECORDS SUMMARY | 2025-04-06 18:44 | XMS_ITS | Clinical Summary ---
Author Organization [facility] Address [address] [place] [address] Care Team Providers Care Sales/Marketing Name Role Phone Unavailable Primary Care Provider [...] Vaccine (1 of 2) 2012 COVID-19 Vaccine (1 - 2023-2 5 season) 2025 RSV Vaccine 60 years and old er and Patients (1 - 1-dose 75+ series) 2037 Hepatitis B Vaccines Aged Out No long er eligible based on patient's age to complete this topic
== END 2025-04-06 17:09 | disposition home or self-care (01) ==
LOC: HO.HMCH 16:30
PROVIDERS: PCP Internal Medicine; Visit Provider Internal Medicine
DX: I47.10 Supraventricular tachycardia, unspecified (principal); E78.5 Hyperlipidemia, unspecified; I10 Essential (primary) hypertension; K21.9 Gastro-esophageal reflux disease without esophagitis; J45.41 Moderate persistent asthma with (acute) exacerbation; M50.90 Cervical disc disorder, unspecified, unspecified cervical region

== ENCOUNTER → 2025-04-06 16:29 | Outpatient (BNVA) | payer BC, SELFPAY | PROVIDERS: PCP Internal Medicine; Visit Provider Internal Medicine | DX: I47.10 Supraventricular tachycardia, unspecified (principal); E78.5 Hyperlipidemia, unspecified; I10 Essential (primary) hypertension; K21.9 Gastro-esophageal reflux disease without esophagitis; J45.41 Moderate persistent asthma with (acute) exacerbation; M50.90 Cervical disc disorder, unspecified, unspecified cervical region; Z13.31 Encounter for screening for depression; Z13.39 Encounter for screening examination for other mental health and behavioral disorders | CPT/HCPCS: 96127 ==

== ENCOUNTER 2025-06-15 10:15 | Outpatient (REF) | payer BC, SELFPAY ==
--- OUTSIDE RECORDS SUMMARY | 2025-05-12 16:40 | XMS_ITS | Encounter Summary ---
Author Organization [facility] Address [address] [place] [address] Care Team Providers Care Side Door Man Name Role Phone Pcp, No Primary Care Provider Unavailabl e Encounter Details Date Type Department Care Team (Late st Contact Info) Description 05/12/2025 5:40 PM EDT Hospital Encounter [facility] [address] [place] [phone] Emile Keyes PA-C [address] [place] [id number] Social History Tobacco Use Types Packs/Day Years Used Date Smoking Tobacco: Never Smokeless Tobacco: Never Comments Unknown Sex and Gender Information Value Date Recorded Sex Assigned at Not on file Legal Sex Female 1:45 PM EDT Gender Identity Not on file Sexual Orientation Not on file documented as of this encounter Plan of Treatment Not on file documented as of this encounter Procedures Procedure Name Priority Date/Time Associated Diagnosis Comments XR WRIST 3+ VIEWS-RIGHT STAT 05/12/2025 5:49 PM EDT Right wrist pain documented in this encounter Results * XR Wrist 3+ views-Right (05/12/2025 5:49 PM EDT) Anatomical Region Laterality Modality Wrist Right Computed Radiogr aphy 05/12/2025 6:19 PM EDT Impressions 05/12/2025 6:20 PM EDT No radiographic evidence of acute fracture. If a navicular fracture is suspected clinically consider immobilization and follow-up imaging since navicular fractures may initially be occult. Narrative 05/12/2025 6:20 PM EDT PROCEDURE: XR WRIST 3+ VIEWS-RIGHT ([id number]) EXAM DATE: 05/12/2025 5:40 PM CLINICAL HISTORY: Right dorsal wrist pain with swelling TECHNIQUE: Frontal, lateral and oblique views of the right wrist. COMPARISON: No acute fracture or dislocation of the right wrist. FINDINGS: Bones/joints: Generalized osteopenia. No acute fracture. No dislocation. Soft tissues: Pronator quadratus fat pad is intact. No radiopaque foreign body. Procedure Note aDija Leon MD - 05/12/2025 PROCEDURE: XR WRIST 3+ VIEWS-RIGHT ([id number]) EXAM DATE: 05/12/2025 5:40 PM CLINICAL HISTORY: Right dorsal wrist pain with swelling TECHNIQUE: Frontal, lateral and oblique views of the right wrist. COMPARISON: No acute fracture or dislocation of the right wrist. FINDINGS: Bones/joints: Generalized osteopenia. No acute fracture. Nodislocation. Soft tissues: Pronator quadratus fat pad is intact. No radiopaqueforeign body. IMPRESSION: No radiographic evidence of acute fracture. If a navicular fracture is suspected clinically consider immobilizationand follow-up imaging since navicular fractures may initially be occult. Emile Keyes PA-C [facility] Final Result documented in this encounter Visit Diagnoses Not on filedocumented in this encounter Care Teams Side Door Man Relationship Specialty Start Date End Date Pcp, No PCP - General 05/12/25 documented as of this encounter
[2025-06-15 15:06] LABS: Alanine Aminotransferase 19 U/L (0-31); Albumin Level 4.4 g/dL (3.5-5.0); Alkaline Phosphatase 74 U/L (39-117); Anion Gap 12 (12-20); Aspartate Amino Transferase 30 U/L (5-31); Blood Urea Nitrogen 15 mg/dL (9-16); Calcium 9.6 mg/dL (8.4-10.2); Carbon Dioxide 28 mmol/L (22-29); Chloride 106 mmol/L (96-108); Cholesterol 144 mg/dL (<200); Estimated Glomerular Filt Rate > 60; HDL Cholesterol 74 mg/dL (>40); Potassium 3.9 mmol/L (3.3-5.1); Sodium 142 mmol/L (135-145); Total Protein 6.7 g/dL (6.5-8.0); Triglycerides 47 mg/dL (<150)
--- OUTSIDE RECORDS SUMMARY | 2025-06-15 19:40 | XMS_ITS | Clinical Summary ---
Author Organization [facility] Address [address] [place] [address] Phone Care Team Providers Care Registered Nurse Hh Case Manager Name Role Phone Karen Delong MD Primary Care Provider [phone] Allergies Active Allergy Reactions Criticality Noted Date [...] PM EST): Coronary artery disease invo lving [place] heart without angina pectoris 06/08/2024 Assessment & [...] a sleep study. 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 ([facility]); COMMENT: on Hyzent[employer] infusions weekly () Social [...] Health Maintenance Due Date Last Done Comments Colorectal Cancer Screening: Colonoscopy 1962 Pneumococcal Vaccine: 50+ Years (1 of 2 - PCV) 1981 Cervical Cancer Screening: Pap Smear 1983 RSV Immunization Adult Patients (1 - Risk 50-74 years 1-dose series) 2012 Breast Cancer Screening 01/05/2021 01/05/2019 Cholesterol Screening (Lipid Panel) 07/04/2022 HIV Screening 07/04/2022 Hepatitis C Screening 07/04/2022 Social Influencers of Health Screening 07/04/2022 Hypertension/CHF/CAD Annual BMP Blood Test 07/07/2022 10/13/2020, 10/13/2020 Depression Screening 07/28/2024 COVID-19 Vaccine ( season) 2025 04/01/2024, 05/03/2023, 11/13/2022, Additional history exists Influenza Vaccine (#1) 2025 04/27/2019, 2017 DTaP,Tdap,and Td Vaccines (2 - Td or Tdap) 06/27/2033 06/27/2023 Zoster Vaccines Completed 04/01/2024, 12/26/2023 HIB Vaccines [...] this topic Medical Devices Implanted Type Area Post Adoption Coordinator Device Identifier Shelf Expiration Date Model / Serial / Lot Sponge Surgiflo 8ml Hemostatic Matrix Absorbable Latex Free - [id number] Implanted:Qty: 1 on 10/11/2019 by Yobani Quiros MD Implants [employer] 12/25/2020 [id number] / / [id number] Graft [place] Asr Lordotic [id number] Cancellous Cortical - [id number] - [id number] Implanted:Qty: 1 on 10/11/2019 by Yobani Quiros MD [employer] 05/04/2022 [id number] / [id number] / [id number] Graft Cornerstone Asr [id number] Spacer Lordotic Cancellous - [id number] - [id number] Implanted:Qty: 1 on 10/11/2019 by Yobani Quiros MD [employer] 06/22/2022 [id number] / [id number] / [id number] Screw [place] Acp Self Drill 4.0x14mm Variable - [id number] Implanted:Qty: 6 on 10/11/2019 by Yobani Quiros MD DEPUY SYNTHES [id number] / / Plate Tri-Lobe Cam Loc [place] Prelordotic 35.8x16x2.5mm 28 - [id number] Implanted:Qty: 1 on 10/11/2019 by Yobani Quiros MD [employer] SYNTHES [id number] / / Procedures Procedure Name Priority Date/Time Associated Diagnosis Comments ANNUAL BMP BLOOD TEST Routine 10/13/2020 [facility] SCREENING DIGITAL Routine 01/05/2019 8:19 AM EDT Encounter for screening mammogram for malignant neoplasm of breast from Last 3 Months or Most Recently Relevant to Health Maintenance Results * Annual BMP Blood Test (10/13/2020) Annual BMP Blood Test abstracted us Historical Provider HEALTH MAINTENANCE Final Result * [facility] SCREENING DIGITAL (01/05/2019 8:19 AM EDT) Anatomical Region Laterality Modality Mammography 12/31/2018 3:52 PM EDT Narrative 01/05/2019 8:[address] [facility] Diagnostic Imaging Department [address] [place], [place] [id number] Patient: EMELY BROCK /Age/Sex: 1960 - 58 - F Unit#: [id number] Location/Status: SPDIMAM/REG CLI Mnemonic/Ordering Site: [facility] Ordering Physician: OSITO MATT MD Radha Screening Digital - 01/04/19 - 164 INDICATION: SCREENING COMPARISON: [facility] mammograms dating back to 08/31/2011 TECHNIQUE: CC and MLO views of the breasts were obtained, using full field digital mammography with 3D tomosynthesis views in the MLO projection. Computer aided detection with the Fluxome 7.2-H was employed. FINDINGS: The breasts contain [...] a target date for the next mammogram. ([id number] / [id number]) , [id number] Dictating Physician: SHIRIN GROVES MD Electronically Signed by: SHIRIN GROVES MD Dic Date/Time: 01/05/19814 Sign date/Time: 01/05/19818 Procedure Note Shirin Groves - 07/16/2022 [facility] Diagnostic Imaging Department [address] [place] [address] Patient: EMELY BROCK Rachel /Age/Sex: 1960 - 58 - F Unit#: [id number] Location/Status: SPDIMAM/REG CLI Mnemonic/Ordering Site: [facility] Ordering Physician: OSITO MATT MD Radha Screening Digital - 01/04/19 - 1641 INDICATION: SCREENING COMPARISON: [facility] mammograms dating back to 08/31/2011 TECHNIQUE: CC and MLO views of the breasts were obtained, using full field digital mammography with 3D tomosynthesis views in the MLO projection. Computer aided detection with the Fluxome 7.2-H was employed. FINDINGS: The breasts contain [...] a target date for the next mammogram. [id number] / [id number]) , 15328 Dictating Physician: SHIRIN GROVES MD Electronically Signed by: SHIRIN GROVES MD Dic Date/Time: 01/05/19814 Sign date/Time: 06/11/19 0819 Osito Matt MD IMG BI PROCEDURES Final Result from Last 3 Months or Most Recently Relevant to Health Maintenance Insurance [facility] ([facility]) Advance Directives Documents on File Type Date Recorded Patient Key Account Director Expl anation Health Care Decision (hx) 07/27/2013 [...] (hx) 07/09/2013 AD KUMAR DIRECTIVE Care Teams Registered Nurse Hh Case Manager Relationship Specialty Start Date End Date Karen Delong MD [address] [facility] [address] [place] [address] Physician Associ D/B/A: [facility] VICTORIA Sneed PCP - General Internal Medicine 07/23/19
--- OUTSIDE RECORDS SUMMARY | 2025-06-15 19:40 | XMS_ITS | Clinical Summary ---
Author Organization [facility] Address [address] [facility] [address] [place] [id number] Phone Care Team Providers Care Surfacing Technician Name Role Phone Karen Gonzalez MD Primary [...] VACCINE (#1) 2025 COVID-19 VACCINE (1 - 2024-2 6 season) 2025 RSV VACCINE (1 - 1-dose [...] topic Medical Devices Not on [place] [address] [place] [address] [place] [address] [place] [address] [facility] PPO [facility] PPO PPO PPO [place] [place] OUT OF STATE PPO BL[place] OUT OF STATE PPO [place] OUT OF STATE PPO [facility] OUT OF STATE PPO Care Teams Surfacing Technician Relationship Specialty Start Date End Date Karen Gonzalez MD [address] [place] [address] PCP - General Internal Medicine 03/19/18 System, Provider Not In, [employer] [address] [address] Referring Physician 03/19/18 Additional Source Comments The information contained in this document represents components of the legal health record. It is not the complete legal health record.[facility]
--- OUTSIDE RECORDS SUMMARY | 2025-06-15 19:40 | XMS_ITS | Clinical Summary ---
Author Organization [facility] Address [address] [place] [address] Care Team Providers Care Product Manager E Commerce Name Role Phone Karen Gonzalez MD Primary [...] Tract Disorder Take by mouth. [address]-H[address]-Me thyl Randall (1ST MEDX-PATCH/ LIDOCAINE) 4-0.025-5-20 % [...] this topic Medical Devices Implanted Type Area Atm Technician Device Identifier Shelf Expiration Date Model / Serial / Lot Sponge Surgiflo 8ml Hemostatic Matrix Absorbable Latex Free - [id number] - [id number] Implanted:Qty: 1 on 10/11/2019 by Yobani Quiros MD at [facility] and Med Hemostatic Agent [employer] 12/25/2020 2991 / / [id number] Graft Cornerstone Asr Lordotic [id number] Cancellous Cortical - [id number] - [id number] Implanted:Qty: 1 on 10/11/2019 by Yobani Quiros MD at [facility] and Med [employer] 05/04/2022 [id number] / [id number] / [id number] Graft Cornerstone Asr [id number] Spacer Lordotic Cancellous - 221563 - [id number] Implanted:Qty: 1 on 10/11/2019 by Yobani Quiros MD at [facility] and Med [employer] 06/22/2022 [id number] / [id number] / [id number] Screw [place] Acp Self Drill 4.0x14mm Variable - [id number] - [id number] Implanted:Qty: 6 on 10/11/2019 by Yobani Quiros MD at [facility] and [employer] [id number] / / Plate Tri-Lobe Cam Loc [place] Prelordotic 35.8x16x2.5mm 28 - [id number] - [id number] Implanted:Qty: 1 on 10/11/2019 by Yobani Quiros MD at [facility] and [employer] [id number] / / Advance Directives For more information, please contact: [phone] Latest Code Status on File Code Status [...] will or healthcare instructions . Care Teams Product Manager E Commerce Relationship Specialty Start Date End Date Karen Gonzalez MD [address] [place] [address] , [address] Physician Associ D/B/A: [facility] [place] [address] PCP - General Internal Medicine 07/23/19
--- OUTSIDE RECORDS SUMMARY | 2025-06-15 19:40 | XMS_ITS | Clinical Summary ---
Author Organization [facility] Address [address] [place] [address] Care Team Providers Care String Studies Director Name Role Phone Pcp, No Primary Care Provider Unavailabl e Allergies Active Allergy Reactions Criticality Noted Date Comments Doxycycline Nausea And Vomiting, Nausea Only,GI Intolerance/Nausea/Vomiting Medium 02/02/2015 Erythromycin Base GI Intolerance/Nausea/Vomiting Low 03/12/2018 Penicillins Itching,Nausea And V omiting,GI Intolerance/Nausea/Vomiting Medium 02/02/2015 Medications acetaminophen (TYLENOL) 650 MG suppository Take 650 mg by mouth every 8 hours as needed. - Oral Active albuterol (PROVENTIL HFA; VENTOLIN HFA) 108 (90 Base) MCG/ACT inhaler USE 2 INHALATIONS ORALLY EVERY 4 HOURS NEEDED FORWHEEZING Active aspirin enteric coated 81 MG EC tablet Take 81 mg by mouth. Active atorvastatin (LIPITOR) 40 MG tablet Take 40 mg by mouth. Active Azelastine HCl 137 MCG/SPRAY nasal spray 2 sprays 2 times a day. 5 Active Cetirizine HCl (ZyrTEC) 10 MG Cap Take by mouth. Activ e cholecalciferol (Vitamin D-[address]) 25 MCG (1000 UT) tablet Take 1,000 Units by mouth. Active cholecalciferol (CHOLECALCIFEROL) 10 MCG (400 UNIT) tablet Take 400 Units by mouth. Active cycloSPORINE (RESTASIS) 0.05 % ophthalmic emulsion Apply to eye. Active Vagifem 10 MCG vaginal tablet 5 Active Fluticasone Furoate-Vilantero l 50-25 MCG/ACT Aerosol Powder, Breath Activtivatede Inhale into the lungs daily. - Inhalation Active lidocaine (LIDODERM) 5 % patch APPLY 3 PATCHES TO THE SKIN ONCE A DAY. KEEP ON FOR 12 HOURS, THEN REMOVE FOR 12 HOURS. Active loratadine (CLARITIN) 10 MG tablet Take 10 mg by mouth. Active losartan (COZAAR) 25 MG tablet Take 25 mg by mouth 2 times a day. Active metoPROLOL SUCCINATE (TOPROL-XL) 50 MG 24 hr tablet Take 50 mg by mouth. 4 Active nitroglycerin (NITROSTAT) 0.[address] 0.4 mg under the tongue. Active Botox 100 units Recon Soln injection 5 Active Spiriva Respimat 1.25 MCG/ACT inhalation USE 2 INHALATIONS ORALLY DAILY 5 Active tiotropium (SPIRIVA) [address] 18 mcg into inhaler and inhale. Active valACYclovir (VALTREX) 500 MG tablet Take 500 mg by mouth. 5 Active methylPREDNISolon e (MEDROL DOSEPAK) 4 MG tabletIndications :Right wrist pain Take one row every morning with food X 6 days. Avoid NSAIDs like motrin or advil while taking. Continue tylenol as needed. 21 tablet 5 Active traMADol (ULTRAM) 50 MG tabletIndications :Closed nondisplaced fracture of lunate of right wrist, initial encounter,Scaphol unate dissociation of right wrist Take 1 tablet (50 mg total) by mouth 3 times daily (every 8 hours) as needed for severe pain or moderate pain. 21 tablet 5 025 Active Active Problems No known active problems Encounters Date Type Department Care Team Description 06/09/2025 10:30 AM EST Office Visit Orthopedic [address] [address] José Antonio Sanchez MD Closed nondisplaced fracture of lunate of right wrist, initial encounter (Primary Dx) 05/19/2025 11:00 AM EDT Office Visit Orthopedic [address] [address] José Antonio Sanchez MD Scapholunate dissociation of right wrist (Primary Dx); Pain of finger of right hand 05/17/2025 11:05 AM EDT Office Visit [facility] [address] [phone] Amrit Ruiz MD Mule, Christina N, APRN Right wrist pain (Primary Dx); Encounter related to worker's compensation claim 05/17/2025 Travel 05/12/2025 5:40 PM EDT Hospital Encounter [facility] [address] [address] Emile Keyes PA-C 05/12/2025 5:15 PM EDT Office Visit [address] [phone] Amrit Ruiz MD Rosage, Nicholas, PA-C Right wrist pain (Primary Dx) 05/12/2025 Travel from Last 3 Months Social History Tobacco Use Types Packs/Day Years Used Date Smoking Tobacco: Never Smokeless Tobacco: Never Tobacco Cessation:Counseling Given: Not Answered Comments Unknown Sex and Gender Information Value Date Recorded Sex Assigned at Not on file Legal Sex Female 1:45 PM EDT Gender Identity Not on file Sexual Orientation Not on file Last Filed Vital Signs Vital Sign Reading Time Taken Comments Blood Pressure 121/84 05/17/2025 11:13 AM EDT Pulse 79 05/17/2025 11:13 AM EDT Temperature 36.7 C (98 F) 05/17/2025 11:13 AM EDT Respiratory Rate 18 05/17/2025 11:13 AM EDT Oxygen Saturation 95% 05/17/2025 11:13 AM EDT Inhaled Oxygen Concentration - - Weight 61.2 kg (135 lb) 05/17/2025 11:13 AM EDT Height 161.3 cm (5' 3.5 ) 05/17/2025 11:13 AM ED T Body Mass Index 23.54 05/17/2025 11:13 AM EDT Plan of Treatment Health Maintenance Due Date Last Done Comments Hepatitis C Virus Screening 1960 HIV Screening 1975 DTaP/Tdap/Td Vaccines (1 - Tdap) 1981 Pap Smear (Ages 21-65) 1983 Mammogram 2002 Colonoscopy 2007 Pneumococcal Vaccines 50+ (1 of 1 - PCV) 2012 Zoster (Shingles) Vaccine (1 of 2) 2012 Influenza Vaccine 02/25/2025 05/05/2024, , 05/22/2022, Additional history exists COVID-19 Vaccine ( - season) 2025 06/25/2021, 09/06/2020, 08/09/2020 RSV Vaccine 50 years and older and Patients (1 - 1-dose 75+ series) 2037 Hepatitis B Vaccines Aged Out No long er eligible based on patient's age to complete this topic Procedures Procedure Name Priority Date/Time Associated Diagnosis Comments XR WRIST 3+ VIEWS-RIGHT STAT 05/12/2025 5:49 PM EDT Right wrist pain from Last 3 Months Results * XR Wrist 3+ views-Right (05/12/2025 5:49 PM EDT) Anatomical Region Laterality Modality Wrist Right Computed Radiogr aphy 05/12/2025 6:19 PM EDT Impressions 05/12/2025 6:20 PM EDT No radiographic evidence of acute fracture. If a navicular fracture is suspected clinically consider immobilization and follow-up imaging since navicular fractures may initially be occult. Narrative 05/12/2025 6:20 PM EDT PROCEDURE: XR WRIST 3+ VIEWS-RIGHT ([id number]) EXAM DATE: 05/12/2025 5:40 PM CLINICAL HISTORY: [...] - 05/12/2025 PROCEDURE: XR WRIST 3+ VIEWS-RIGHT ([id number]) EXAM DATE: 05/12/2025 5:40 PM CLINICAL HISTORY: [...] may initially be occult. Emile Keyes PA-C [facility] [place] [place] [facility] SOTERO Final Result from Last 3 Months Insurance ANITHA ALBRIGHT ANITHA ALBRIGHT/[facility] [place] Care Teams String Studies Director Relationship Specialty Start Date End Date Pcp, No PCP - General 05/12/25
--- OUTSIDE RECORDS SUMMARY | 2025-06-15 19:40 | XMS_ITS | Clinical Summary ---
Author Organization [facility], Address [address] [place] [address] Phone Care Team Providers Care Admissions Dean Name Role Phone Unavailable Primary Care Provider [...] patient's age to complete this topic Insurance [facility]
== END 2025-06-15 10:16 | disposition home or self-care (01) ==
LOC: HO.HMGCLDS 10:15
PROVIDERS: PCP Internal Medicine; Visit Provider Internal Medicine
DX: I47.10 Supraventricular tachycardia, unspecified (principal); E78.5 Hyperlipidemia, unspecified
CPT/HCPCS: 36415; 80053; 80061

== ENCOUNTER 2025-06-20 17:20 | Outpatient (AMB) | payer BC, SELFPAY ==
--- OUTSIDE RECORDS SUMMARY | 2025-05-12 16:40 | XMS_ITS | Encounter Summary ---
Author Organization [facility] Address [address] [place] [address] Care Team Providers Care Last Model Department Supervisor Name Role Phone Pcp, No Primary Care Provider Unavailabl e Encounter Details Date Type Department Care Team (Late st Contact Info) Description 05/12/2025 5:40 PM EDT Hospital Encounter [facility] [address] [place] [phone] Emile Keyes PA-C [address] [place] [phone] Social History Tobacco Use Types Packs/Day Years [...] PM EDT PROCEDURE: XR WRIST 3+ VIEWS-RIGHT ([id number]) EXAM DATE: 05/12/2025 5:40 PM CLINICAL HISTORY: Right dorsal wrist pain with swelling TECHNIQUE: Frontal, lateral and oblique views of the right wrist. COMPARISON: No acute fracture or dislocation of the right wrist. FINDINGS: Bones/joints: Generalized osteopenia. No acute fracture. No dislocation. Soft tissues: Pronator quadratus fat pad is intact. No radiopaque foreign body. Procedure Note Daija Leon MD - 05/12/2025 PROCEDURE: XR WRIST 3+ VIEWS-RIGHT ([id number]) EXAM DATE: 05/12/2025 5:40 PM CLINICAL HISTORY: [...] occult. Emile Keyes PA-C [facility] Final Result documented in this encounter Visit Diagnoses Not on filedocumented in this encounter Care Teams Last Model Department Supervisor Relationship Specialty Start Date End Date Pcp, No PCP - General 05/12/25 documented as of this encounter
--- OUTSIDE RECORDS SUMMARY | 2025-06-09 10:30 | XMS_ITS | Encounter Summary ---
Author Organization [facility] Address [address] [place] [address] Care Team Providers Care Customer Service Administrator Name Role Phone Pcp, No Primary Care Provider Unavailabl e Reason for Referral * Diagnostic Imaging (Routine) - Pending Review Specialty Diagnoses / Procedures Referred By Yamileth t Referred To Contact Diagnoses Closed nondisplaced fracture of lunate of right wrist, initial encounter Procedures CT Wrist w/o contrast-Right José Antonio Sanchez MD [address] [place] [address] Phone: tel: fax: SUELLEN BHAKTA Referral ID Status Reason Start Date Expiration Date V isits Requested Visits Authorized [id number] Pending Review 06/16/2025 06/17/2026 1 1 Reason for Visit * Reason Comments Work Related Injury Work Related Injury Encounter Details Date Type Department Care Team (Late st Contact Info) Description 06/09/2025 10:30 AM EST Office Visit [facility] [address] [place] [address] José Antonio Sanchez MD [address] [id number] Closed nondisplaced fracture of lunate of right wrist, initial encounter (Primary Dx) Social History Tobacco Use Types Packs/Day Years Used Date Smoking Tobacco: Never Smokeless Tobacco: Never Comments Unknown Sex and Gender Information Value Date Recorded Sex Assigned at Not on file Legal Sex Female 1:45 PM EDT Gender Identity Not on file Sexual Orientation Not on file documented as of this encounter Progress Notes * José Antonio Sanchez MD - 06/09/2025 10:30 AM EST Images from the original note were not included. [address] [facility] [address] [place] [address] Encounter Date: 06/09/2025 Assessment 1. Closed nondisplaced fracture of lunate of right wrist, initial encounter Plan Assessment & Plan I had a long discussion with the patient today. We reviewed her MRI wrist/hand report and I have explained the findings as they are outlined in the report. Unfortunately I was unable to review the images as the images were not available today. The MRI report indicates a possible avulsion of the scapholunate ligament on the lunate. There is also evidence of ECU tenosynovitis. Clinically the patient's pain is not well localized. We will plan to order a CT scan of the wrist as recommended by the radiologist to better evaluate for possible fracture of the lunate. I will attempt to call her once we have the results of the MRI. She will follow-up once the CT scan is completed to discuss results and options. The patient was informed of their diagnosis and treatment options. Medical decision-making involvedassessing all known acute and chronic conditions, the relationship of diagnoses, systemic effects, and acute exacerbations. External medical notes and results from diagnostic tests were reviewed whenapplicable. The risks and benefits of operative and non-operative treatment, including side effectsor complications of of interventions (including medication and therapy) possible complications withand without treatment and when to proceed with options for surgery were reviewed. An independent historian was utilized if present, and communications were sent to listed providers. Any social or phys ical determent of health, when relevant and recognized, was addressed. All necessary electronic precharting, postcharting and dictation was factored into clinical time documentation. History of Present Illness: History of Present Illness Emely Santizo is a 64 year old female who presents with right wrist pain following a work-related injury. Acute onset of right wrist pain on May 12, 2025, after lifting a heavy box with charts at work Right wrist pain and functional impairment - Persistent pain localized to the dorsal aspect of the right wrist - Tenderness over the dorsal lunate and scapholunate interval - Pain radiates dorsally along the first and second rays - Stiffness with MCP and PIP flexion in the index and middle fingers - Significant impact on activities of daily living, including dressing, hair care, cooking, and cleaning - Unable to picking machine operator objects or perform tasks such as spraying a bottle due to pain - No prior history of wrist injuries Physical Exam Patient is well-appearing and in no acute distress. Breathing comfortably on room air. Physical Exam HAND: Global tenderness over the dorsal wrist with specific tenderness over the dorsal lunate and scapholunate interval. Radiation of pain along the first and second rays dorsally. Stiffness with MCPand PIP flexion in the index and middle fingers. Additional tenderness over the extensor carpi ulnaris and ulnar fovea. Sensation intact to light touch in the median, ulnar, and radial distributions. Fingers are warm and well-perfused with brisk capillary refill. Imaging / Data Review Results Report Reviewed with Patient. Wrist MRI: Suspected small avulsion fracture at the dorsal aspect of the lunate at the insertion site of the dorsal scapholunate ligament. Bone marrow edema throughout the lunate bone, suspected reactive. Early Kienb??ck's disease not excluded. Hand MRI: No tendon injury. No other bone injury in the hand. Edema in the lunate, reference wrist MRI. Procedure Procedures None Visit Orders. 1. Closed nondisplaced fracture of lunate of right wrist, initial encounter - CT Wrist w/o contrast-Right; Future - CT Wrist w/o contrast-Right Review of Systems Review of systems collected, received and pertinent positives and negatives documented in dictation. Past Medical History No past medical history on file. No past surgical history on file. No family history on file. Social History[1] Medication List Current Medications[2] Allergies Allergies[3] Verbal consent obtained from the patient to record the visit for documentation purposes, with an understanding that the recording will be securely processed via software for note generation, revision and inclusion in the medical record. Additionally, portions of this record may have been created with voice recognition software. Occasional wrong-word or [id number] substitutions may have occurred due to the inherent limitations of voice recognition software. An attempt has been made to proofread this record, however some errors may still exist. Please read the chart carefully and recognize, using context, where substitutions have occurred. Please do not hesitate to reach out if clarifica tion is required. José Antonio Sanchez MD [1] Social History Tobacco Use Smoking status: Never Smokeless tobacco: Never [2] Current Outpatient Medications: acetaminophen (TYLENOL) 650 MG suppository, Take 650 mg by mouth every 8 hours as needed. - Oral, Disp: , Rfl: albuterol (PROVENTIL HFA; VENTOLIN HFA) 108 (90 Base) MCG/ACT inhaler, USE 2 INHALATIONS ORALLY EVERY 4 HOURS NEEDED FORWHEEZING, Disp: , Rfl: aspirin enteric coated 81 MG EC tablet, Take 81 mg by mouth., Disp: , Rfl: atorvastatin (LIPITOR) 40 MG tablet, Take 40 mg by mouth., Disp: , Rfl: Azelastine HCl 137 MCG/SPRAY nasal spray, 2 sprays 2 times a day., Disp: , Rfl: Botox 100 units Recon Soln injection, , Disp: , Rfl: Cetirizine HCl (ZyrTEC) 10 MG Cap, Take by mouth., Disp: , Rfl: cholecalciferol (CHOLECALCIFEROL) 10 MCG (400 UNIT) tablet, Take 400 Units by mouth., Disp: , Rfl: cholecalciferol (Vitamin D-[address]) 25 MCG (1000 UT) tablet, Take 1,000 Units by mouth., Disp: , Rfl: cycloSPORINE (RESTASIS) 0.05 % ophthalmic emulsion, Apply to eye., Disp: , Rfl: Fluticasone Furoate-Vilanterol 50-25 MCG/ACT Aerosol Powder, Breath Activtivatede, Inhale into the lungs daily. - Inhalation, Disp: , Rfl: lidocaine (LIDODERM) 5 % patch, APPLY 3 PATCHES TO THE SKIN ONCE A DAY. KEEP ON FOR 12 HOURS, THEN REMOVE FOR 12 HOURS., Disp: , Rfl: loratadine (CLARITIN) 10 MG tablet, Take 10 mg by mouth., Disp: , Rfl: losartan (COZAAR) 25 MG tablet, Take 25 mg by mouth 2 times a day., Disp: , Rfl: methylPREDNISolone (MEDROL DOSEPAK) 4 MG tablet, Take one row every morning with food X 6 days. Avoid NSAIDs like motrin or advil while taking. Continue tylenol as needed., Disp: 21 tablet, Rfl: 0 metoPROLOL SUCCINATE (TOPROL-XL) 50 MG 24 hr tablet, Take 50 mg by mouth., Disp: , Rfl: nitroglycerin (NITROSTAT) 0.4 MG SL tablet, Place 0.4 mg under the tongue., Disp: , Rfl: Spiriva Respimat 1.25 MCG/ACT inhalation, USE 2 INHALATIONS ORALLY DAILY, Disp: , Rfl: tiotropium (SPIRIVA) 18 MCG inhalation capsule, Place 18 mcg into inhaler and inhale., Disp: , Rfl: Vagifem 10 MCG vaginal tablet, , Disp: , Rfl: valACYclovir (VALTREX) 500 MG tablet, Take 500 mg by mouth., Disp: , Rfl: [3] Allergies Allergen Reactions Doxycycline Nausea And Vomiting, Nausea Only and GI Intolerance/Nausea/Vomiting Penicillins Itching, Nausea And Vomiting and GI Intolerance/Nausea/Vomiting Erythromycin Base GI Intolerance/Nausea/Vomiting documented in this encounter Miscellaneous Notes * Addendum Note - Deep Salvador - 06/09/2025 10:30 AM ESTAddended by: DEEP SALVADOR on: 06/16/2025 03:33 PM Modules accepted: Orders documented in this encounter Plan of Treatment Scheduled Orders Name Type Priority Associated Diagnoses Orde r Schedule CT Wrist w/o contrast-Right Imaging Routine Closed nondisplaced fracture of lunate of right wrist, initial encounter Expected: 06/16/2025, Expires: 06/16/2026 documented as of this encounter Visit Diagnoses Diagnosis Closed nondisplaced fracture of lunate of right wrist, initial encounter- Primary documented in this encounter Care Teams Customer Service Administrator Relationship Specialty Start Date End Date Pcp, No PCP - General 05/12/25 documented as of this encounter
[2025-06-20 17:26] VITALS: BP 144/78; PULSE 72; RESP 18; O2SAT 99; BMI 24.2
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
--- OUTSIDE RECORDS SUMMARY | 2025-06-20 20:31 | XMS_ITS | Clinical Summary ---
Author Organization [facility] Address [address] [place] [address] Care Team Providers Care Hatch Tender Name Role Phone Karen Gonzalez MD Primary [...] Tract Disorder Take by mouth. 0 Active Faut-Mrcsauctv-Svc-Me thyl Randall (1ST MEDX-PATCH/ LIDOCAINE) 4-0.025-5-20 % [...] this topic Medical Devices Implanted Type Area Subject Scientific Research Device Identifier Shelf Expiration Date Model / Serial / Lot Sponge Surgiflo 8ml Hemostatic Matrix Absorbable Latex Free - [id number] - [id number] Implanted:Qty: 1 on 10/11/2019 by Yobani Quiros MD at [facility] Hemostatic Agent [email or web address] 12/25/2020 2991 / / [id number] Graft Cornerstone Asr Lordotic [id number] Cancellous Cortical - [id number] - [id number] Implanted:Qty: 1 on 10/11/2019 by Yobani Quiros MD at [facility] [employer] 05/04/2022 [id number] / [id number] / [id number] Graft Cornerstone Asr [id number] Spacer Lordotic Cancellous - 313014 - [id number] Implanted:Qty: 1 on 10/11/2019 by Yobani Quiros MD at [facility] [employer] 06/22/2022 [id number] / [id number] / [id number] Screw Gage Acp Self Drill 4.0x14mm Variable - [id number] - [id number] Implanted:Qty: 6 on 10/11/2019 by Yobani Quiros MD at [facility] [employer] [id number] / / Plate Tri-Lobe Cam Loc Gage Prelordotic 35.8x16x2.5mm 28 - [id number] - [id number] Implanted:Qty: 1 on 10/11/2019 by Yobani Quiros MD at [facility] [employer] [id number] / / Advance Directives For more information, please contact: [phone] Latest Code Status on File Code Status [...] will or healthcare instructions . Care Teams Hatch Tender Relationship Specialty Start Date End Date Karen Gonzalez MD [address] [place] [address] , [address] Physician Associ D/B/A: [facility] [place] [address] PCP - General Internal Medicine 07/23/19
--- OUTSIDE RECORDS SUMMARY | 2025-06-20 20:31 | XMS_ITS | Clinical Summary ---
Author Organization [facility] Address [address] [facility] [address] [place] [address] Phone Care Team Providers Care Wedding Day Coordinator Name Role Phone Karen Gonzalez MD Primary [...] topic Medical Devices Not on [place] [address] [place] [address] [place] [address] [place] [address] OUT [facility] PPO [facility] OUT [facility] PPO PPO PPO [place] [place] OUT OF STATE PPO BL[employer] [place] OUT OF STATE PPO [place] [place] OUT OF STATE PPO [facility] OUT OF STATE PPO Care Teams Wedding Day Coordinator Relationship Specialty Start Date End Date Karen Gonzalez MD [address] [place] [address] PCP - General Internal Medicine 03/19/18 System, Provider Not In, [facility] [employer] [address] [address] Referring Physician 03/19/18 Additional Source Comments The information contained in this document represents components of the legal health record. It is not the complete legal health record.[facility]
--- OUTSIDE RECORDS SUMMARY | 2025-06-20 20:31 | XMS_ITS | Clinical Summary ---
Author Organization [facility] Address [address] [place] [address] Phone Care Team Providers Care Custody Officer Name Role Phone Karen Delong MD Primary Care Provider [phone] Allergies Active Allergy Reactions Criticality Noted Date [...] PM EST): Coronary artery disease invo lving [place] heart without angina pectoris 06/08/2024 Assessment & [...] move forward with a sleep study. 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[facility] V24) DX:Immunoglobulin deficiency ([facility]); COMMENT: on [employer] infusions weekly [...] this topic Medical Devices Implanted Type Area Vector Control Specialist Device Identifier Shelf Expiration Date Model / Serial / Lot Sponge Surgiflo 8ml Hemostatic Matrix Absorbable Latex Free - [id number] Implanted:Qty: 1 on 10/11/2019 by Yobani Quiros MD Implants [employer] 12/25/2020 2991 / / [id number] Graft Cornerstone Asr Lordotic [id number] Cancellous Cortical - [id number] - [id number] Implanted:Qty: 1 on 10/11/2019 by Yobani Quiros MD [employer] 05/04/2022 [id number] / [id number] / [id number] Graft Cornerstone Asr [id number] Spacer Lordotic Cancellous - 044873 - [id number] Implanted:Qty: 1 on 10/11/2019 by Yobani Quiros MD [employer] 06/22/2022 [id number] / [id number] / [id number] Screw [place] Acp Self Drill 4.0x14mm Variable - [id number] Implanted:Qty: 6 on 10/11/2019 by Yobani Quiros MD [employer] [id number] / / Plate Tri-Lobe Cam Loc [place] Prelordotic 35.8x16x2.5mm 28 - [id number] Implanted:Qty: 1 on 10/11/2019 by Yobani Quiros MD [employer] [id number] / / Procedures Procedure Name Priority Date/Time Associated Diagnosis Comments ANNUAL BMP BLOOD TEST Routine 10/13/2020 [facility] SCREENING DIGITAL Routine 01/05/2019 8:19 AM EDT Encounter for screening mammogram for malignant neoplasm of breast from Last 3 Months or Most Recently Relevant to Health Maintenance Results * Annual BMP Blood Test (10/13/2020) Annual BMP Blood Test abstracted us Historical Provider HEALTH MAINTENANCE Final Result * [facility] SCREENING DIGITAL (01/05/2019 8:19 AM EDT) Anatomical Region Laterality Modality Mammography 12/31/2018 3:52 PM EDT Narrative 01/05/2019 8:[address] [facility] Diagnostic Imaging Department [address] [place], [place] [id number] Patient: EMELY BROCK /Age/Sex: 1960 - 58 - F Unit#: [id number] Location/Status: SPDIMAM/REG CLI Mnemonic/Ordering Site: [facility] Ordering Physician: OSITO MATT MD Radha Screening Digital - 01/04/19 - 164 INDICATION: SCREENING COMPARISON: [facility] mammograms dating back to 08/31/2011 TECHNIQUE: CC and MLO views of the breasts were obtained, using full field digital mammography with 3D tomosynthesis views in the MLO projection. Computer aided detection with the Esanex 7.2-H was employed. FINDINGS: The breasts contain [...] a target date for the next mammogram. (G1480 / 03202) , [id number] Dictating Physician: SHIRIN GROVES MD Electronically Signed by: SHIRIN GROVES MD Dic Date/Time: 01/05/19814 Sign date/Time: 01/05/19818 Procedure Note Shirin Groves - 07/16/[address] [facility] Diagnostic Imaging Department [address] [place] [address] Patient: EMELY BROCK Rachel /Age/Sex: 1960 - 58 - F Unit#: [id number] Location/Status: SPDIMAM/REG CLI Mnemonic/Ordering Site: [facility] Ordering Physician: OSITO MATT MD Radha Screening Digital - 01/04/19 - 1641 INDICATION: SCREENING COMPARISON: [facility] mammograms dating back to 08/31/2011 TECHNIQUE: CC and MLO views of the breasts were obtained, using full field digital mammography with 3D tomosynthesis views in the MLO projection. Computer aided detection with the Esanex 7.2-H was employed. FINDINGS: The breasts contain [...] a target date for the next mammogram. G0116 / 53561) , 55064 Dictating Physician: SHIRIN GROVES MD Electronically Signed by: SHIRIN GROVES MD Dic Date/Time: 01/05/19814 Sign date/Time: 06/11/19 0819 Osito Matt MD IMG BI PROCEDURES Final Result from Last 3 Months or Most Recently Relevant to Health Maintenance Insurance [facility] Advance Directives Documents on File Type Date Recorded Patient Straight Line Edger Expl anation Health Care Decision (hx) 07/27/2013 [...] (hx) 07/09/2013 AD KUMAR DIRECTIVE Care Teams Custody Officer Relationship Specialty Start Date End Date [facility] Del[facility] [address] [facility] [address] [place] [address] Physician Associ D/B/A: [facility] VICTORIA Sneed PCP - General Internal Medicine 07/23/19
--- OUTSIDE RECORDS SUMMARY | 2025-06-20 20:32 | XMS_ITS | Clinical Summary ---
Author Organization [facility] Address [address] [place] [address] Care Team Providers Care Parts Driver Name Role Phone Pcp, No Primary Care [...] pain or moderate pain. 21 tablet 5 Active Active Problems No known active problems Encounters Date Type Department Care Team Description 06/09/2025 10:30 AM EST Office Visit Orthopedic [address] [address] José Antonio Sanchez MD Closed nondisplaced fracture of lunate of right wrist, initial encounter (Primary Dx) 05/19/2025 11:00 AM EDT [facility] Visit [facility] [address] [address] José Antonio Sanchez MD Scapholunate dissociation of right wrist (Primary Dx); Pain of finger of right hand 05/17/2025 11:05 AM EDT Office Visit [facility] [address] [phone] Amrit Ruiz MD Mule, Christina N, APRN Right wrist pain (Primary Dx); Encounter related to worker's compensation claim 05/12/2025 5:40 PM EDT Hospital Encounter [facility] [address] [address] Emile Keyes PA-C 05/12/2025 5:15 PM EDT Office Visit [address] [address] Amrit Ruiz MD Rosage, Nicholas, PA-C Right wrist pain (Primary Dx) from Last 3 Months Social History Tobacco [...] PM EDT PROCEDURE: XR WRIST 3+ VIEWS-RIGHT ([id number]) EXAM DATE: 05/12/2025 5:40 PM CLINICAL HISTORY: [...] - 05/12/2025 PROCEDURE: XR WRIST 3+ VIEWS-RIGHT ([id number]) EXAM DATE: 05/12/2025 5:40 PM CLINICAL HISTORY: [...] may initially be occult. Emile Keyes PA-C IM DIAGNOSTIC IM[facility] Final Result from Last 3 Months Insurance ANITHA ALBRIGHT ANITHA ALBRIGHT/[place] Care Teams Parts Driver Relationship Specialty Start Date End Date Pcp, No PCP - General 05/12/25
== END 2025-06-20 18:08 | disposition home or self-care (01) ==
LOC: HO.HMCH 17:21
PROVIDERS: PCP Internal Medicine; Visit Provider Internal Medicine
DX: Z00.00 Encounter for general adult medical examination without abnormal findings (principal)

== ENCOUNTER → 2025-06-20 17:20 | Outpatient (BNVA) | payer BC, SELFPAY | PROVIDERS: PCP Internal Medicine; Visit Provider Internal Medicine | DX: Z00.00 Encounter for general adult medical examination without abnormal findings (principal); J45.909 Unspecified asthma, uncomplicated; M54.2 Cervicalgia; Z79.899 Other long term (current) drug therapy | CPT/HCPCS: 96127 ==